=== PATIENT | female | born 1985 | race Caucasian/White ===

== ENCOUNTER 2016-12-17 14:20 | Outpatient (CLI) | payer SELFPAY | END 2016-12-17 14:21 | disposition home or self-care (01) | DX: N92.0 Excessive and frequent menstruation with regular cycle (principal) ==

== ENCOUNTER 2016-12-31 14:03 | Emergency (ER) | payer SELFPAY ==
[2016-12-31 15:12] LABS: BILIRUBIN,URINE NEGATIVE (NEGATIVE)
[2016-12-31 15:20] LABS: HCG UR QUAL NEGATIVE; UA w/ MICROSCOPIC CHARGE YES
[2016-12-31 15:28] LABS: UR CULTURE IF IND NOT INDICATED; WBC,URINE 0-3 /HPF (0-5)
[2016-12-31] MEDS ORDERED: ACETAMINOPHEN 325 MG TABLET PO STA (16:20)
[2016-12-31] MEDS ORDERED: CETIRIZINE 10 MG TABLET PO STA (16:20)
[2016-12-31] MEDS ORDERED: DEXAMETHASONE 10 MG/ML VIAL PO STA (16:20)
--- NOTE | 2016-12-31 16:22 | ED Physician Documentation ---
PD HPI SKIN - Stated complaint Stated Complaint: KIDNEY PAIN,WEEK,ARM PAIN - Chief complaint Chief Complaint: General - History obtained from History obtained from: Patient - History of Present Illness Timing - onset: How many weeks ago (1-2) Timing - duration: Weeks Timing - details: Gradual onset, Intermittant Location: Bodywide (having intermittent swelling face and around eyes, itchy rash, and some congestion. Improved when got transfusion last week, but still happening.) Quality / character: Itchy. No: Painful Associated symptoms: No: Fever, Myalgias Review of Systems Constitutional: denies: Fever, Chills Nose: denies: Rhinorrhea / runny nose, Congestion Throat: denies: Sore throat Cardiac: denies: Chest pain / pressure Respiratory: reports: Cough. 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.) : None HEENT: None Psych: None Musculoskeletal: None Derm: None - Past Surgical History Past Surgical History: Yes /VIDEO CONTROL ENGINEER: Dilation and currettage - Present Medications Home Medications: Ambulatory Orders Medication Instructions Recorded Confirmed Ferrous Sulfate [Iron] 325 mg PO DAILY 12/18/16 12/31/16 Pnv95/Ferrous Fumarate/FA 1 - 3 tab PO DAILY 12/18/16 12/31/16 [ Caplet] Cetirizine [ZyrTEC] 10 mg PO DAILY #20 tablet 12/31/16 Dexamethasone [Decadron] 4 mg PO DAILY #5 tablet 12/31/16 - Allergies Allergies/Adverse Reactions: Allergies Allergy/AdvReac Type Severity Reaction Status Date / Time codeine [Codeine] AdvReac Intermediate itching/abd Verified 10/31/14 15:56 pain - Social History Does the pt smoke?: No Smoking Status: Never smoker Does the pt drink ETOH?: No Does the pt have substance abuse?: No - Immunizations Immunizations are current?: No Immunizations: No immun - POLST Patient has POLST: No PD ED PE NORMAL - Vitals Vital signs reviewed: Yes - General General: Alert and oriented X 3, Well developed/nourished - HEENT HEENT: Atraumatic, Ears normal, Pharynx benign - Neck Neck: Supple, no meningeal sign, No adenopathy - Cardiac Cardiac: RRR, No murmur - Respiratory Respiratory: Clear bilaterally - Derm Derm: Normal color, Warm and dry - Extremities Extremities: Normal ROM s pain, No edema, No calf tenderness / cord - Neuro Neuro: Alert and oriented X 3, No motor deficit, Normal speech Results - Vitals Vitals: Vital Signs - 24 hr 12/31/16 12/31/16 14:08 17:33 Temperature 37.0 C Heart Rate 68 54 L Respiratory 18 16 Rate Blood Pressure 111/61 109/69 O2 Saturation 98 100 Oxygen O2 Source Room air - Labs Labs: Laboratory Tests 12/31/16 12/31/16 12/31/16 14:46 16:30 16:30 WBC 4.6 L RBC 4.42 Hgb 9.4 L Hct 31.2 L MCV 70.6 L MCH 21.1 L MCHC 30.0 L RDW 20.4 H Plt Count 244 MPV 9.4 Neut # 2.4 Lymph # 1.4 L [place] # 0.4 Eos # 0.3 Baso # 0.1 Absolute Nucleated RBC 0.00 Nucleated RBCs 0.0 Manual Slide Review Indicated Platelet Estimate NORMAL (130-450,000) Platelet Morphology RARE GIANT PLATELETS RBC Morph Micro Appear 1+ TEARDROP CELLS Sodium 136 Potassium 4.3 Chloride 107 Carbon Dioxide 23 Anion Gap 6.0 BUN 12 Creatinine 0.6 Estimated GFR (MDRD) 118 Glucose 99 Calcium 8.9 Magnesium 2.3 Total Bilirubin 0.4 AST 17 ALT 16 Alkaline Phosphatase 55 Total Protein 6.8 Albumin 4.1 Globulin 2.7 Albumin/Globulin Ratio 1.5 Lipase 40 Urine Color YELLOW Urine Clarity CLEAR Urine pH 6.0 Ur Specific [place] 1.020 Urine Protein NEGATIVE Urine Glucose (UA) NEGATIVE Urine Ketones NEGATIVE Urine Occult Blood NEGATIVE Urine Nitrite NEGATIVE Urine Bilirubin NEGATIVE Urine Urobilinogen 0.2 (NORMAL) Ur Leukocyte Esterase TRACE H Urine RBC 0-5 Urine WBC 0-3 Ur Squamous Epith Cells MOD Squamous H Urine Bacteria Rare Urine Mucus Few Strands Ur Microscopic Review INDICATED Urine Culture Comments NOT INDICATED Urine HCG, Qual NEGATIVE PD MEDICAL DECISION MAKING - ED course Complexity details: considered differential (intermittent facial swelling and itching, without intraoral/mucosal involvement. Was having this before transfusion last week, so not seems related. ), d/w patient Departure - Departure Disposition: 01 Home, Self Care Clinical Impression: Itching, Cough Allergy Qualifiers: Encounter type: initial encounter Qualified Code(s): T78.40XA - Allergy, unspecified, initial encounter Condition: Stable Record reviewed to determine appropriate education?: Yes Instructions: ED Allergic Reaction General Other Prescriptions: Dexamethasone [Decadron] 4 mg PO DAILY #5 tablet Cetirizine [ZyrTEC] 10 mg PO DAILY #20 tablet Comments: drink lots of fluids. Cetirizine daily for a few weeks. Decadron daily for 5 days. Add Benadryl every 6 hours if needed for itching/swelling. Followup with [facility] the next week. Discharge Date/Time: 12/31/16 18:01
[2016-12-31] MEDS ORDERED: DEXAMETHASONE 10 MG/ML VIAL ONE (16:31)
[2016-12-31] MEDS ORDERED: CETIRIZINE 10 MG TABLET ONE (16:31)
[2016-12-31] MEDS ORDERED: ACETAMINOPHEN 325 MG TABLET PO ONE (16:31)
[2016-12-31] MEDS ORDERED: CHERRY SYRUP 10 ML UDC PO ONE (16:31)
[2016-12-31 16:45] LABS: ALBUMIN/GLOBULIN RATIO 1.5 (1.0-2.2); BILIRUBIN,TOTAL 0.4 mg/dL (0.2-1.0); CALCIUM 8.9 mg/dL (8.5-10.3); CREATININE 0.6 mg/dL (0.4-1.0); MAGNESIUM 2.3 mg/dL (1.7-2.8); POTASSIUM 4.3 mmol/L (3.5-5.0); TOTAL PROTEIN 6.8 g/dL (6.7-8.2)
[2016-12-31 16:51] LABS: BASOPHILS # (AUTO) 0.1 10^3/uL (0.0-0.1); BASOPHILS % (AUTO) 1.4 %; EOSINOPHILS # (AUTO) 0.3 10^3/uL (0.0-0.7); EOSINOPHILS % (AUTO) 7.1 %; HCT - HEMATOCRIT 31.2 % (37.0-47.0); HGB - HEMOGLOBIN 9.4 g/dL (12.0-16.0); LYMPHOCYTES # (AUTO) 1.4 10^3/uL (1.5-3.5); LYMPHOCYTES % (AUTO) 30.1 %; MEAN CORPUSCULAR HEMOGLOBIN 21.1 pg (27.0-31.0); MEAN CORPUSCULAR VOLUME 70.6 fL (81.0-99.0); MEAN PLATELET VOLUME 9.4 fL (7.9-10.8); MONOCYTES # (AUTO) 0.4 10^3/uL (0.0-1.0); MONOCYTES % (AUTO) 8.6 %; NEUTROPHILS # (AUTO) 2.4 10^3/uL (1.5-6.6); NEUTROPHILS % (AUTO) 52.8 %; RED BLOOD COUNT 4.42 10^6/uL (4.20-5.40); RED CELL DISTRIBUTION WIDTH 20.4 % (12.0-15.0); UNCORRECTED WHITE BLOOD COUNT 4.6 x10^3/uL; WHITE BLOOD COUNT 4.6 x10^3/uL (4.8-10.8)
[2016-12-31 17:23] LABS: PLATELET ESTIMATE, MANUAL NORMAL (130-450,000) (NORMAL); PLATELET MORPHOLOGY RARE GIANT PLATELETS (NORMAL)
--- NOTE | 2016-12-31 17:28 | XRAY Preliminary Report ---
Exam: XR Chest 2 View PA/LAT IMPRESSION: No acute pulmonary consolidation. [facility] SITE ID: [id number]
--- NOTE | 2016-12-31 17:30 | XRAY Report ---
EXAM: CHEST RADIOGRAPHY EXAM DATE: 12/31/2016 05:09 PM. CLINICAL HISTORY: Cough and dyspnea. COMPARISON: Chest x-ray 10/31/2014. TECHNIQUE: 2 views. FINDINGS: Lungs/Pleura: No focal opacities evident. No pneumothorax or pleural effusion. Normal volumes. Mediastinum: Heart and mediastinal contours are unremarkable. Other: None. IMPRESSION: No acute pulmonary consolidation. [facility] Referring Provider Line: [phone] SITE ID: [id number]
[2016-12-31 17:34] VITALS: BP 109/69
== END 2016-12-31 18:01 | disposition home or self-care (01) ==
LOC: ED 14:03
DX: L29.9 Pruritus, unspecified (principal); R05 Cough; T78.40XA Allergy, unspecified, initial encounter
CPT/HCPCS: 36415; 71020; 80053; 81001; 81025; 83690; 83735; 85025; 99283; A9270; 81003; 87086

== ENCOUNTER 2017-02-25 08:01 | Outpatient (CLI) | payer SELFPAY | END 2017-02-25 23:59 | DX: C95.01 Acute leukemia of unspecified cell type, in remission (principal) ==

== ENCOUNTER 2017-03-01 08:02 | Outpatient (CLI) | payer SELFPAY | END 2017-03-01 08:03 | DX: Z20.2 Contact with and (suspected) exposure to infections with a predominantly sexual mode of transmission (principal) ==

== ENCOUNTER 2017-03-09 16:21 | Observation (INO) | payer SELFPAY ==
[2017-03-09] MEDS ORDERED: SODIUM CHLORIDE FLUSH 0.9% 10 ML SYRINGE IVP PRN (18:12)
[2017-03-09] MEDS ORDERED: SODIUM CHLORIDE 0.9% 1,000 ML IV ONE (18:27)
[2017-03-09] MEDS ORDERED: POTASSIUM CHLORIDE 20 MEQ TABLET PO SCH (19:28)
[2017-03-09] MEDS ORDERED: diphenhydrAMINE INJ 50 MG/ML VIAL IVP PRN (19:54)
[2017-03-09] MEDS ORDERED: ACETAMINOPHEN/CODEINE 300 MG/30 MG TABLET PO PRN (19:54)
[2017-03-09] MEDS ORDERED: ACETAMINOPHEN 325 MG TABLET PO PRN (20:35)
[2017-03-09] MEDS ORDERED: ACETAMINOPHEN 325 MG TABLET PO SCH (21:00)
[2017-03-09] MEDS ORDERED: SODIUM CHLORIDE FLUSH 0.9% 10 ML SYRINGE IVP SCH (22:00)
[2017-03-10] MEDS ORDERED: POLYETHYLENE GLYCOL 3350 17 GM PACKET PO SCH (09:00)
== END 2017-03-10 04:30 | disposition home or self-care (01) ==
DX: D62 Acute posthemorrhagic anemia (principal); N93.8 Other specified abnormal uterine and vaginal bleeding; E87.6 Hypokalemia; D50.9 Iron deficiency anemia, unspecified; Z79.3 Long term (current) use of hormonal contraceptives; Z79.899 Other long term (current) drug therapy; C95.91 Leukemia, unspecified, in remission
CPT/HCPCS: 36415; 36430; 80053; 81025; 83690; 85014; 85018; 85025; 86850; 86900; 86901; 86920; 93005; 93010; 96374; 99283; 99285; A9270; G0378; P9016

== ENCOUNTER 2017-05-21 16:26 | Emergency (ER) | payer SELFPAY ==
[2017-05-21 16:41] VITALS: BP 129/73
--- NOTE | 2017-05-21 17:02 | ED Physician Documentation ---
PD HPI CHEST PAIN - Stated complaint Stated Complaint: CHEST PX - Chief complaint Chief Complaint: General - History obtained from History obtained from: Patient - History of Present Illness Timing - onset: Yesterday Similar symptoms before: Diagnosis (Past history of anemia, requiring blood transfusion.) - Additional information Additional information: The patient is a 31-year-old female who presents after having 2 episodes of lightheadedness, 1 yesterday and 1 today. Her menstrual period started today, about one hour prior to arrival. 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 In February she was hospitalized for acute on chronic blood loss, with a hemoglobin of 7.2, for which she underwent transfusion of 2 units packed red blood cells. She presents now concerned that she may need another blood transfusion. She reports a brief episode of mild chest discomfort at 4 AM today, with associated shortness of breath. She denies abdominal pain, vomiting, or diarrhea. Review of Systems Constitutional: denies: Fever Ears: denies: Tinnitus/ringing Nose: denies: Congestion Throat: denies: Sore throat Cardiac: reports: Chest pain / pressure (Mild chest discomfort at 4 AM today. Not currently.) Respiratory: denies: Cough GI: denies: Abdominal Pain, Nausea, Vomiting : reports: LMP (Started one hour ago.), Vaginal bleeding. 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.) : None HEENT: None Psych: None Musculoskeletal: None Derm: None - Past Surgical History Past Surgical History: Yes /CREW BOAT OPERATOR: Dilation and currettage - Present Medications Home Medications: Ambulatory Orders Medication Instructions Recorded Confirmed Ferrous Sulfate [Iron] 325 mg PO DAILY 12/18/16 05/21/17 Pnv95/Iron Fum/Folic Acid 1 - 3 tab PO DAILY 12/18/16 05/21/17 [ Caplet] - Allergies Allergies/Adverse Reactions: Allergies Allergy/AdvReac Type Severity Reaction Status Date / Time codeine [Codeine] AdvReac Intermediate itching/abd Verified 10/31/14 15:56 pain - Social History Does the pt smoke?: No Smoking Status: Never smoker Does the pt drink ETOH?: No Does the pt have substance abuse?: No - Immunizations Immunizations are current?: No Immunizations: No immun - POLST Patient has POLST: No PD ED PE NORMAL - Vitals Vital signs reviewed: Yes (normal) - General General: Alert and oriented X 3, Well developed/nourished - HEENT HEENT: Atraumatic, Pharynx benign - Neck Neck: No adenopathy, No JVD - Cardiac Cardiac: RRR, No murmur - Respiratory Respiratory: No respiratory distress, Clear bilaterally - Abdomen Abdomen: Soft, Non tender - Back Back: No CVA TTP - Derm Derm: Normal color, No rash - Extremities Extremities: No edema, No calf tenderness / cord - Neuro Neuro: Alert and oriented X 3, No motor deficit, Normal speech Results - Vitals Vitals: Oxygen O2 Source Room air - EKG (time done) 16:55 Rate: Rate (enter#) (55) Rhythm: NSR [place]: Normal Intervals: Normal [place] QRS: Normal Ischemia: Normal ST segments Computer interpretation: Agree with computer - Labs Labs: Microbiology 05/21/17 17:30 Urine Culture - Preliminary Urine,Clean Catch Laboratory Tests 05/21/17 05/21/17 05/21/17 17:10 17:10 17:10 WBC 4.2 L RBC 4.07 L Hgb 9.5 L Hct 30.9 L MCV 76.0 L MCH 23.3 L MCHC 30.7 L RDW 18.8 H Plt Count 216 MPV 7.7 L Neut # 2.6 Lymph # 1.2 L [place] # 0.3 Eos # 0.1 Baso # 0.0 Absolute Nucleated RBC 0.00 Nucleated RBCs 0.0 Sodium 139 Potassium 3.4 L Chloride 109 Carbon Dioxide 23 Anion Gap 7.0 BUN 14 Creatinine 0.7 Estimated GFR (MDRD) 99 Glucose 117 H Calcium 9.2 Total Bilirubin 0.6 AST 16 ALT 14 Alkaline Phosphatase 50 Troponin I < 0.04 Total Protein 6.9 Albumin 4.1 Globulin 2.8 Albumin/Globulin Ratio 1.5 Lipase 38 Urine Color Urine Clarity Urine pH Ur Specific [place] Urine Protein Urine Glucose (UA) Urine Ketones Urine Occult Blood Urine Nitrite Urine Bilirubin Urine Urobilinogen Ur Leukocyte Esterase Urine RBC Urine WBC Ur Squamous Epith Cells Urine Bacteria Ur Microscopic Review Urine Culture Comments Urine HCG, Qual Blood Type Antibody Screen 05/21/17 05/21/17 17:10 17:30 WBC RBC Hgb Hct MCV MCH MCHC RDW Plt Count MPV Neut # Lymph # [place] # Eos # Baso # Absolute Nucleated RBC Nucleated RBCs Sodium Potassium Chloride Carbon Dioxide Anion Gap BUN Creatinine Estimated GFR (MDRD) Glucose Calcium Total Bilirubin AST ALT Alkaline Phosphatase Troponin I Total Protein Albumin Globulin Albumin/Globulin Ratio Lipase Urine Color RED/BLOODY Urine Clarity CLEAR Urine pH 5.5 Ur Specific [place] <=1.005 Urine Protein 30 H Urine Glucose (UA) NEGATIVE Urine Ketones NEGATIVE Urine Occult Blood LARGE H Urine Nitrite NEGATIVE Urine Bilirubin NEGATIVE Urine Urobilinogen 0.2 (NORMAL) Ur Leukocyte Esterase TRACE H Urine RBC 11-25 H Urine WBC 4-5 Ur Squamous Epith Cells FEW Squamous Urine Bacteria Few Ur Microscopic Review INDICATED Urine Culture Comments INDICATED Urine HCG, Qual NEGATIVE Blood Type O POSITIVE Antibody Screen NEGATIVE - Rads (name of study) Chest 1-view Radiology: Prelim report reviewed, EMP read contemporaneously, See rad report ( Normal single view chest.) PD MEDICAL DECISION MAKING - ED course Complexity details: reviewed old records, reviewed results, re-evaluated patient , considered differential, d/w patient, d/w family ED course: The patient's presentation is consistent with chronic anemia with a current hemoglobin of 9.5. She does not present with critical anemia that would warrant blood transfusion. Her brief episode of mild chest discomfort is not likely cardiac in etiology. Her electrocardiogram and troponin level are both normal. I discussed with her the results of her workup, and she expresses relief, and plans to continue her current vitamin therapy. I discussed with her and her potentially worrisome signs or symptoms that should prompt reevaluation in the emergency department. Departure - Departure Disposition: 01 Home, Self Care Clinical Impression: Anemia Qualifiers: Anemia type: unspecified type Qualified Code(s): D64.9 - Anemia, unspecified Chest pain Qualifiers: Chest pain type: unspecified Qualified Code(s): R07.9 - Chest pain, unspecified Heavy menstrual bleeding Qualifiers: Menorrahagia type: with regular cycle Qualified Code(s): N92.0 - Excessive and frequent menstruation with regular cycle Condition: Stable Instructions: ED Chest Pain NonCardiac Follow-Up: Osvaldo Teague MD [Provider Admit Priv/Credential] - Corie Kurtz FNP [Primary Care Provider] - Comments: 1. Drink plenty of fluids. 2. Continue taking her vitamins. 3. Follow-up with your primary physician or with your pier master within 1 week. Call to schedule appointment. 4. Return to the emergency department if you develop recurrent or increasing chest pain, shortness of breath, or otherwise worsening symptoms. Discharge Date/Time: 05/21/17 18:42
[2017-05-21 17:19] LABS: EOSINOPHILS # (AUTO) 0.1 10^3/uL (0.0-0.7); EOSINOPHILS % (AUTO) 1.7 %; HCT - HEMATOCRIT 30.9 % (37.0-47.0); HGB - HEMOGLOBIN 9.5 g/dL (12.0-16.0); LYMPHOCYTES # (AUTO) 1.2 10^3/uL (1.5-3.5); MEAN CORPUSCULAR HEMOGLOBIN 23.3 pg (27.0-31.0); MEAN CORPUSCULAR HGB CONC 30.7 g/dL (32.0-36.0); MEAN PLATELET VOLUME 7.7 fL (7.9-10.8); MONOCYTES # (AUTO) 0.3 10^3/uL (0.0-1.0); MONOCYTES % (AUTO) 6.6 %; NEUTROPHILS # (AUTO) 2.6 10^3/uL (1.5-6.6); NEUTROPHILS % (AUTO) 61.7 %; RED BLOOD COUNT 4.07 10^6/uL (4.20-5.40); RED CELL DISTRIBUTION WIDTH 18.8 % (12.0-15.0); UNCORRECTED WHITE BLOOD COUNT 4.2 x10^3/uL; WHITE BLOOD COUNT 4.2 x10^3/uL (4.8-10.8)
--- NOTE | 2017-05-21 17:23 | XRAY Preliminary Report ---
Exam: XR Chest 1 View IMPRESSION: Normal single view chest. [facility] SITE ID: [id number]
--- NOTE | 2017-05-21 17:25 | XRAY Report ---
EXAM: CHEST RADIOGRAPHY EXAM DATE: 05/21/2017 05:09 PM. CLINICAL HISTORY: Chest pain. COMPARISON: 12/31/2016. TECHNIQUE: 1 view. FINDINGS: Lungs/Pleura: No focal opacities evident. No pleural effusion. No pneumothorax. Mediastinum: Within exam limitations, cardiomediastinal contour is normal. Other: None. IMPRESSION: Normal single view chest. [facility] Referring Provider Line: [phone] SITE ID: [id number]
[2017-05-21 17:35] LABS: ALBUMIN/GLOBULIN RATIO 1.5 (1.0-2.2); BILIRUBIN,TOTAL 0.6 mg/dL (0.2-1.0); CALCIUM 9.2 mg/dL (8.5-10.3); CREATININE 0.7 mg/dL (0.4-1.0); POTASSIUM 3.4 mmol/L (3.5-5.0); TOTAL PROTEIN 6.9 g/dL (6.7-8.2)
[2017-05-21 17:52] LABS: BILIRUBIN,URINE NEGATIVE (NEGATIVE); PH,URINE 5.5 PH (5.0-7.5)
[2017-05-21 17:56] LABS: HCG UR QUAL NEGATIVE; UA w/ MICROSCOPIC CHARGE YES
[2017-05-21 18:37] LABS: UR CULTURE IF IND INDICATED
== END 2017-05-21 18:42 | disposition home or self-care (01) ==
LOC: ED 16:26
DX: D64.9 Anemia, unspecified (principal); R07.9 Chest pain, unspecified; N92.0 Excessive and frequent menstruation with regular cycle
CPT/HCPCS: 36415; 71010; 80053; 81001; 81003; 81025; 83690; 84484; 85025; 86850; 86900; 86901; 87086; 93005; 99283; 99284

== ENCOUNTER 2017-06-28 08:00 | Outpatient (CLI) | payer SELFPAY ==
[2017-06-28 19:27] LABS: BASOPHILS # (AUTO) 0.1 10^3/uL (0.0-0.1); BASOPHILS % (AUTO) 1.6 %; EOSINOPHILS % (AUTO) 0.4 %; HCT - HEMATOCRIT 28.5 % (37.0-47.0); HGB - HEMOGLOBIN 8.5 g/dL (12.0-16.0); LYMPHOCYTES # (AUTO) 1.1 10^3/uL (1.5-3.5); LYMPHOCYTES % (AUTO) 34.9 %; MEAN CORPUSCULAR HEMOGLOBIN 22.2 pg (27.0-31.0); MEAN CORPUSCULAR HGB CONC 29.7 g/dL (32.0-36.0); MEAN CORPUSCULAR VOLUME 74.7 fL (81.0-99.0); MONOCYTES # (AUTO) 0.3 10^3/uL (0.0-1.0); MONOCYTES % (AUTO) 8.4 %; NEUTROPHILS # (AUTO) 1.7 10^3/uL (1.5-6.6); NEUTROPHILS % (AUTO) 54.7 %; NUCLEATED RED BLOOD CELLS AUTO 0.8 /100WBC; RED BLOOD COUNT 3.82 10^6/uL (4.20-5.40); RED CELL DISTRIBUTION WIDTH 18.6 % (12.0-15.0); UNCORRECTED WHITE BLOOD COUNT 3.1 x10^3/uL; WHITE BLOOD COUNT 3.1 x10^3/uL (4.8-10.8)
== END 2017-06-28 08:01 | disposition home or self-care (01) ==
LOC: LAB.N 08:00
PROVIDERS: ATTEND Nurse Practitioner Gerontology
DX: D50.0 Iron deficiency anemia secondary to blood loss (chronic) (principal)
CPT/HCPCS: 36415; 85025

== ENCOUNTER → 2017-07-27 | Outpatient (CLI) | payer SELFPAY ==
[2017-07-27 21:16] LABS: ALBUMIN/GLOBULIN RATIO 1.3 (1.0-2.2); BILIRUBIN,TOTAL 0.4 mg/dL (0.2-1.0); CALCIUM 9.4 mg/dL (8.5-10.3); CREATININE 0.5 mg/dL (0.4-1.0); POTASSIUM 3.5 mmol/L (3.5-5.0)
[2017-07-27 21:24] LABS: EOSINOPHILS % (AUTO) 0.6 %; HCT - HEMATOCRIT 27.7 % (37.0-47.0); HGB - HEMOGLOBIN 8.1 g/dL (12.0-16.0); LYMPHOCYTES # (AUTO) 1.2 10^3/uL (1.5-3.5); LYMPHOCYTES % (AUTO) 28.9 %; MEAN CORPUSCULAR HEMOGLOBIN 20.4 pg (27.0-31.0); MEAN CORPUSCULAR HGB CONC 29.1 g/dL (32.0-36.0); MEAN PLATELET VOLUME 8.8 fL (7.9-10.8); MONOCYTES # (AUTO) 0.3 10^3/uL (0.0-1.0); MONOCYTES % (AUTO) 7.6 %; NEUTROPHILS # (AUTO) 2.6 10^3/uL (1.5-6.6); NEUTROPHILS % (AUTO) 61.9 %; NUCLEATED RED BLOOD CELLS AUTO 0.2 /100WBC; RED BLOOD COUNT 3.96 10^6/uL (4.20-5.40); RED CELL DISTRIBUTION WIDTH 19.2 % (12.0-15.0); UNCORRECTED WHITE BLOOD COUNT 4.1 x10^3/uL; WHITE BLOOD COUNT 4.1 x10^3/uL (4.8-10.8)
== END ==
LOC: LAB.N 08:46
PROVIDERS: ATTEND Physician Assistant
DX: C95.91 Leukemia, unspecified, in remission (principal)
CPT/HCPCS: 36415; 80053; 85025

== ENCOUNTER 2017-07-30 13:27 | Emergency (ER) | payer SELFPAY ==
[2017-07-30 13:37] VITALS: BP 108/74
--- NOTE | 2017-07-30 14:21 | ED Physician Documentation ---
History of Present Illness - Stated complaint Stated Complaint: DIZZY - Chief complaint Chief Complaint: General - History obtained from History obtained from: Patient - History of Present Illness Timing: Other (She has chronic symptomatic anemia because of dysfunctional uterine bleeding and a remote history of leukemia. She gets usually about monthly labs and she had her routine blood draw 3 days ago. There was some confusion, she was told that her level was 4.1 and she got very concerned and came here, however that was her white blood cell count, not her hemoglobin. 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: Dilation and currettage - Present Medications Home Medications: Ambulatory Orders Medication Instructions Recorded Confirmed Ferrous Sulfate [Iron] 325 mg PO DAILY 12/18/16 05/21/17 Pnv95/Iron Fum/Folic Acid 1 - 3 tab PO DAILY 12/18/16 05/21/17 [ Caplet] - Allergies Allergies/Adverse Reactions: Allergies Allergy/AdvReac Type Severity Reaction Status Date / Time codeine [Codeine] AdvReac Intermediate itching/abd Verified 10/31/14 15:56 pain - Social History Does the pt smoke?: No Smoking Status: Never smoker Does the pt drink ETOH?: No Does the pt have substance abuse?: No - Immunizations Immunizations are current?: No Immunizations: No immun - POLST Patient has POLST: No PD ED PE NORMAL - Vitals Vital signs reviewed: Yes - General General: Alert and oriented X 3, No acute distress - HEENT HEENT: PERRL (Pale sclera) - Neuro Neuro: Alert and oriented X 3, Normal speech - Psych Psych: Normal mood, Normal affect Results - Vitals Vitals: Vital Signs - 24 hr 07/30/17 13:31 Temperature 36.9 C Heart Rate 63 Respiratory 16 Rate Blood Pressure 108/74 O2 Saturation 100 Oxygen O2 Source Room air PD MEDICAL DECISION MAKING - ED course ED course: Her hemoglobin is at her baseline, and she does not require transfusion at this juncture. Departure - Departure Disposition: Home, Self Care Clinical Impression: Symptomatic anemia Condition: Good Record reviewed to determine appropriate education?: Yes Comments: Continue your iron supplementation, in the future when you decide you no longer desire to have more children, discuss her case with the edge cutting machine operator, there are options to prevent further anemia.
== END 2017-07-30 14:25 | disposition home or self-care (01) ==
LOC: ED 13:27
DX: D64.9 Anemia, unspecified (principal)
CPT/HCPCS: 99283

== ENCOUNTER 2017-10-19 15:03 | Emergency (ER) | payer SELFPAY ==
--- NOTE | 2017-10-19 15:27 | ED Physician Documentation ---
History of Present Illness - Stated complaint Stated Complaint: DIZZINESS,WEAKNESS,CHEST PX - Chief complaint Chief Complaint: General - History obtained from History obtained from: Patient - History of Present Illness Timing: How many days ago (4) - Additonal information Additional information: 32-year-old female with a history of heavy vaginal bleeding since the miscarriage has had anemia significant enough to require transfusion last 4-5 months ago. She is now feeling symptomatic with exertional dyspnea and chest pressure. She is more pale than normal and has lost energy. Review of Systems Constitutional: reports: Myalgias, Fatigue, Sweats. denies: Fever Eyes: denies: Decreased vision Ears: denies: Ear pain Nose: denies: Rhinorrhea / runny nose, Congestion Throat: denies: Sore throat Cardiac: reports: Chest pain / pressure. denies: Palpitations Respiratory: reports: Dyspnea. 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 : None HEENT: None Psych: None Musculoskeletal: None Derm: None - Past Surgical History Past Surgical History: Yes /MOLD TECHNICIAN: Dilation and currettage - Present Medications Home Medications: Ambulatory Orders Medication Instructions Recorded Confirmed Ferrous Sulfate [Iron] 325 mg PO DAILY 12/18/16 10/19/17 Pnv95/Iron Fum/Folic Acid 1 - 3 tab PO DAILY 12/18/16 10/19/17 [ Caplet] - Allergies Allergies/Adverse Reactions: Allergies Allergy/AdvReac Type Severity Reaction Status Date / Time codeine [Codeine] AdvReac Intermediate itching/abd Verified 10/31/14 15:56 pain - Social History Does the pt smoke?: No Smoking Status: Never smoker Does the pt drink ETOH?: No Does the pt have substance abuse?: No - Immunizations Immunizations are current?: No Immunizations: No immun - POLST Patient has POLST: No PD ED PE NORMAL - Vitals Vital signs reviewed: Yes (normal ) - General General: Alert and oriented X 3, No acute distress, Well developed/nourished, Other (pale appearing female in no distress) - HEENT HEENT: Atraumatic, PERRL, EOMI - Neck Neck: Supple, no meningeal sign, No bony TTP - Cardiac Cardiac: RRR, No murmur - Respiratory Respiratory: No respiratory distress, Clear bilaterally - Abdomen Abdomen: Soft, Non tender - Back Back: No CVA TTP, No spinal TTP - Derm Derm: Normal color, Warm and dry, No rash - Extremities Extremities: No deformity, No edema - Neuro Neuro: No motor deficit, No sensory deficit Eye Opening: Spontaneous Motor: Obeys Commands Verbal: Oriented GCS Score: 15 - Psych Psych: Normal mood, Normal affect Results - Vitals Vitals: Vital Signs - 24 hr 10/19/17 10/19/17 10/19/17 15:06 15:45 16:48 Temperature 36.1 C L 36.9 C Heart Rate 84 70 69 Respiratory 17 16 18 Rate Blood Pressure 124/76 98/58 L 108/74 O2 Saturation 100 100 99 10/19/17 10/19/17 10/19/17 17:22 17:25 18:08 Temperature 37 C Heart Rate 66 67 Respiratory 20 16 Rate Blood Pressure 95/82 H 102/59 L O2 Saturation 10/19/17 10/19/17 18:15 18:30 Temperature 36.8 C 36.7 C Heart Rate 68 62 Respiratory 16 16 Rate Blood Pressure 104/60 101/67 O2 Saturation 100 Oxygen O2 Source Room air - Labs Labs: Laboratory Tests 10/19/17 10/19/17 10/19/17 15:38 15:38 16:05 WBC 2.8 L RBC 3.37 L Hgb 6.4 L* Hct 21.8 L MCV 64.7 L MCH 18.9 L MCHC 29.3 L RDW 22.0 H Plt Count 334 MPV 8.5 Neut # PHARMACY TECHNICIAN Lymph # PHARMACY TECHNICIAN [place] # PHARMACY TECHNICIAN Eos # PHARMACY TECHNICIAN Baso # PHARMACY TECHNICIAN Absolute Nucleated RBC PHARMACY TECHNICIAN Total Counted 100 Band Neuts % (Manual) 0 Nucleated RBC % PHARMACY TECHNICIAN Neutrophils # (Manual) 1.7 Lymphocytes # (Manual) 0.8 L Monocytes # (Manual) 0.3 Eosinophils # (Manual) 0.0 WBC Morphology NORMAL APPEARANCE Platelet Estimate NORMAL (130-450,000) Platelet Morphology RARE GIANT PLATELETS RBC Morph Micro Appear 1+ OVALOCYTES Sodium 137 Potassium 3.3 L Chloride 107 Carbon Dioxide 24 Anion Gap 6.0 BUN 8 Creatinine 0.5 Estimated GFR (MDRD) 145 Glucose 103 H Calcium 8.7 Total Bilirubin 0.4 AST 30 ALT 38 Alkaline Phosphatase 51 Total Protein 6.5 L Albumin 3.8 Globulin 2.7 Albumin/Globulin Ratio 1.4 Lipase 21 L Urine Color Urine Clarity Urine pH Ur Specific [place] Urine Protein Urine Glucose (UA) Urine Ketones Urine Occult Blood Urine Nitrite Urine Bilirubin Urine Urobilinogen Ur Leukocyte Esterase Ur Microscopic Review Urine Culture Comments Urine HCG, Qual Blood Type O POSITIVE Antibody Screen NEGATIVE Crossmatch IS Only See Detail 10/19/17 16:57 WBC RBC Hgb Hct MCV MCH MCHC RDW Plt Count MPV Neut # Lymph # [place] # Eos # Baso # Absolute Nucleated RBC Total Counted Band Neuts % (Manual) Nucleated RBC % Neutrophils # (Manual) Lymphocytes # (Manual) Monocytes # (Manual) Eosinophils # (Manual) WBC Morphology Platelet Estimate Platelet Morphology RBC Morph Micro Appear Sodium Potassium Chloride Carbon Dioxide Anion Gap BUN Creatinine Estimated GFR (MDRD) Glucose Calcium Total Bilirubin AST ALT Alkaline Phosphatase Total Protein Albumin Globulin Albumin/Globulin Ratio Lipase Urine Color YELLOW Urine Clarity CLEAR Urine pH 7.0 Ur Specific [place] 1.010 Urine Protein NEGATIVE Urine Glucose (UA) NEGATIVE Urine Ketones NEGATIVE Urine Occult Blood NEGATIVE Urine Nitrite NEGATIVE Urine Bilirubin NEGATIVE Urine Urobilinogen 0.2 (NORMAL) Ur Leukocyte Esterase NEGATIVE Ur Microscopic Review NOT INDICATED Urine Culture Comments NOT INDICATED Urine HCG, Qual NEGATIVE Blood Type Antibody Screen Crossmatch IS Only Procedures - IVC sono (time) 1600 Bedside IVC sono: IVC measures (cm) (1.47), [place] PD MEDICAL DECISION MAKING - ED course Complexity details: reviewed old records, reviewed results, re-evaluated patient , considered differential, d/w patient, d/w family ED course: 32 y/o female with a history of chronic vaginal bleeding and anemia has reached transfusion threshold and is symptomatic. She is not bleeding now and we will transfuse in the ED. Departure - Departure Clinical Impression: Symptomatic anemia, Dysfunctional uterine bleeding Condition: Stable Instructions: ED Anemia Iron Deficiency, ED Bleed Irregular Vaginal Follow-Up: Marce Molina ARNP [Primary Care Provider] - Osvaldo Teague MD [Provider Admit Priv/Credential] -
[2017-10-19 16:00] LABS: BASOPHILS % (AUTO) 1.5 %; EOSINOPHILS % (AUTO) 0.9 %; HCT - HEMATOCRIT 21.8 % (37.0-47.0); LYMPHOCYTES % (AUTO) 28.4 %; MEAN CORPUSCULAR HEMOGLOBIN 18.9 pg (27.0-31.0); MEAN CORPUSCULAR HGB CONC 29.3 g/dL (32.0-36.0); MEAN CORPUSCULAR VOLUME 64.7 fL (81.0-99.0); MEAN PLATELET VOLUME 8.5 fL (7.9-10.8); NEUTROPHILS % (AUTO) 63.2 %; RED BLOOD COUNT 3.37 10^6/uL (4.20-5.40); UNCORRECTED WHITE BLOOD COUNT 2.8 x10^3/uL; WHITE BLOOD COUNT 2.8 x10^3/uL (4.8-10.8)
[2017-10-19 16:02] LABS: HGB - HEMOGLOBIN 6.4 g/dL (12.0-16.0)
[2017-10-19 16:04] LABS: ALBUMIN/GLOBULIN RATIO 1.4 (1.0-2.2); BAND NEUTROPHILS % (MANUAL) 0 %; BILIRUBIN,TOTAL 0.4 mg/dL (0.2-1.0); CALCIUM 8.7 mg/dL (8.5-10.3); CREATININE 0.5 mg/dL (0.4-1.0); POTASSIUM 3.3 mmol/L (3.5-5.0); TOTAL PROTEIN 6.5 g/dL (6.7-8.2)
[2017-10-19 16:26] LABS: EOSINOPHILS % (MANUAL) 1 %; LYMPHOCYTES % (MANUAL) 30 %; NEUTROPHILS % (MANUAL) 60 %; TOTAL CELLS COUNTED 100
[2017-10-19 16:32] LABS: PLATELET MORPHOLOGY RARE GIANT PLATELETS (NORMAL)
[2017-10-19 16:33] LABS: PLATELET ESTIMATE, MANUAL NORMAL (130-450,000) (NORMAL); WBC MORPHOLOGY (MULTIPLE) NORMAL APPEARANCE (NORMAL)
[2017-10-19 16:34] LABS: NP AUTO DIFFERENTIAL? YES
[2017-10-19 16:35] LABS: NP MAN DIFFERENTIAL? NO
[2017-10-19] MEDS ORDERED: POTASSIUM BICARB 25 MEQ TABLET PO STA (16:35)
[2017-10-19 17:00] LABS: BILIRUBIN,URINE NEGATIVE (NEGATIVE)
[2017-10-19 17:04] LABS: HCG UR QUAL NEGATIVE; UA CHARGE (STRIP ONLY) YES; UR CULTURE IF IND NOT INDICATED
[2017-10-19] MEDS ORDERED: diphenhydrAMINE INJ 50 MG/ML VIAL IVP STA (17:29)
[2017-10-19] MEDS ORDERED: diphenhydrAMINE INJ 50 MG/ML VIAL ONE (17:36)
[2017-10-19] MEDS ORDERED: ACETAMINOPHEN 500 MG TABLET PO STA (17:37)
[2017-10-19] MEDS ORDERED: ACETAMINOPHEN 325 MG TABLET PO STA (17:38)
[2017-10-19] MEDS ORDERED: ACETAMINOPHEN 325 MG TABLET PO ONE (17:38)
[2017-10-19] MEDS ORDERED: POTASSIUM BICARB 25 MEQ TABLET PO ONE (17:47)
[2017-10-19] MEDS ORDERED: diphenhydrAMINE 25 MG CAPSULE PO STA (21:25)
[2017-10-19] MEDS ORDERED: diphenhydrAMINE 25 MG CAPSULE PO ONE (21:33)
[2017-10-19 21:51] VITALS: BP 106/83
== END 2017-10-19 22:00 | disposition home or self-care (01) ==
LOC: ED 15:03
DX: D64.9 Anemia, unspecified (principal); N93.8 Other specified abnormal uterine and vaginal bleeding
CPT/HCPCS: 36415; 36430; 80053; 81003; 81025; 83690; 85025; 86850; 86900; 86901; 86920; 93005; 96374; 99284; A9270; P9016; 81001; 87086

== ENCOUNTER 2017-12-04 19:00 | Emergency (ER) | payer SELFPAY ==
--- NOTE | 2017-12-04 19:17 | ED Physician Documentation ---
History of Present Illness - Stated complaint Stated Complaint: CHEST PX/PRESTON - Chief complaint Chief Complaint: Resp - History obtained from History obtained from: Patient, Family - History of Present Illness Timing: Other (She has chronic symptomatic anemia from fibroids and desires future . She is on her menses which is quite heavy and she feels her usual symptoms of needing transfusion including headache, muscle stiffness and diffuse body pain as well as fatigue and dizziness. There is no associated fever or shortness of breath. There is some chest pain as well but she has had that with prior episodes of anemia as well.) Review of Systems Ten Systems: 10 systems reviewed and negative Constitutional: reports: Fatigue. 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 HEENT: None Psych: None Musculoskeletal: None Derm: None - Past Surgical History Past Surgical History: Yes /PSYCHIATRIC TECHNICIAN: Dilation and currettage - Present Medications Home Medications: Ambulatory Orders Medication Instructions Recorded Confirmed Ferrous Sulfate [Iron] 325 mg PO DAILY 12/18/16 12/04/17 Pnv95/Iron Fum/Folic Acid 1 - 3 tab PO DAILY 12/18/16 12/04/17 [ Caplet] Cyanocobalamin (Vitamin B-12) 1,000 mcg PO DAILY 12/04/17 12/04/17 [Vitamin B-12] - Allergies Allergies/Adverse Reactions: Allergies Allergy/AdvReac Type Severity Reaction Status Date / Time codeine [Codeine] AdvReac Intermediate itching/abd Verified 12/04/17 19:10 pain - Social History Does the pt smoke?: No Smoking Status: Never smoker Does the pt drink ETOH?: No Does the pt have substance abuse?: No - Family History Family history: reports: Non contributory - Immunizations Immunizations are current?: No Immunizations: No immun - POLST Patient has POLST: No PD ED PE NORMAL - Vitals Vital signs reviewed: Yes - General General: Alert and oriented X 3, No acute distress, Other (She is very pale) - HEENT HEENT: PERRL, EOMI - Neck Neck: Supple, no meningeal sign, No bony TTP - Cardiac Cardiac: RRR, No murmur - Respiratory Respiratory: No respiratory distress, Clear bilaterally - Abdomen Abdomen: Soft, Non tender - Derm Derm: Normal color, Warm and dry - Neuro Neuro: Alert and oriented X 3, Normal speech - Psych Psych: Normal mood, Normal affect Results - Vitals Vitals: Vital Signs - 24 hr 12/04/17 19:06 Temperature 37.0 C Heart Rate 72 Respiratory 20 Rate Blood Pressure 124/69 O2 Saturation 100 Oxygen O2 Source Room air - EKG (time done) 1909 Rate: Rate (enter#) (73) Rhythm: NSR [place]: Normal Intervals: Normal OR QRS: Normal Ischemia: Normal ST segments Computer interpretation: Agree with computer - Labs Labs: Laboratory Tests 12/04/17 12/04/17 19:16 19:16 WBC 3.2 L RBC 3.55 L Hgb 7.2 L Hct 24.6 L MCV 69.2 L MCH 20.3 L MCHC 29.3 L RDW 19.7 H Plt Count 259 MPV 8.2 Manual Slide Review Indicated Sodium 139 Potassium 3.7 Chloride 107 Carbon Dioxide 24 Anion Gap 8.0 BUN 10 Creatinine 0.5 Estimated GFR (MDRD) 145 Glucose 87 Calcium 9.1 Total Bilirubin 0.3 AST 20 ALT 17 Alkaline Phosphatase 48 Total Protein 6.7 Albumin 3.9 Globulin 2.8 Albumin/Globulin Ratio 1.4 Lipase 23 PD MEDICAL DECISION MAKING - ED course ED course: 32-year-old with chronic recurrent symptomatic anemia due to menorrhagia presents with her usual symptoms of same. Her hemoglobin today is 7.2 which is not too bad for her and does not quite pass the threshold for transfusion. She was given IV ferric gluconate here and close follow-up was advised. Departure - Departure Disposition: 01 Home, Self Care Clinical Impression: Symptomatic anemia Heavy menstrual bleeding Qualifiers: Menorrahagia type: with regular cycle Qualified Code(s): N92.0 - Excessive and frequent menstruation with regular cycle Condition: Good Record reviewed to determine appropriate education?: Yes Follow-Up: [facility] [Provider Group] Comments: Return anytime if worse, try to get into the adolescent medicine specialist's office on Wednesday or Wednesday for recheck and return if unable.
[2017-12-04 19:34] LABS: BASOPHILS % (AUTO) 1.1 %; EOSINOPHILS % (AUTO) 0.5 %; HGB - HEMOGLOBIN 7.2 g/dL (12.0-16.0); LYMPHOCYTES # (AUTO) 0.9 10^3/uL (1.5-3.5); LYMPHOCYTES % (AUTO) 27.2 %; MEAN CORPUSCULAR HEMOGLOBIN 20.3 pg (27.0-31.0); MEAN CORPUSCULAR HGB CONC 29.3 g/dL (32.0-36.0); MEAN CORPUSCULAR VOLUME 69.2 fL (81.0-99.0); MEAN PLATELET VOLUME 8.2 fL (7.9-10.8); MONOCYTES # (AUTO) 0.3 10^3/uL (0.0-1.0); MONOCYTES % (AUTO) 8.7 %; NEUTROPHILS % (AUTO) 62.5 %; PLT - PLATELET COUNT 259 10^3/uL (130-450); RED BLOOD COUNT 3.55 10^6/uL (4.20-5.40); RED CELL DISTRIBUTION WIDTH 19.7 % (12.0-15.0); WHITE BLOOD COUNT 3.2 x10^3/uL (4.8-10.8)
[2017-12-04 19:38] LABS: ALBUMIN 3.9 g/dL (3.2-5.5); ALBUMIN/GLOBULIN RATIO 1.4 (1.0-2.2); BILIRUBIN,TOTAL 0.3 mg/dL (0.2-1.0); CALCIUM 9.1 mg/dL (8.5-10.3); CREATININE 0.5 mg/dL (0.4-1.0); TOTAL PROTEIN 6.7 g/dL (6.7-8.2)
[2017-12-04] MEDS ORDERED: FERRIC GLUCONATE 62.5 MG/5 ML VIAL IVP ONE (19:42)
[2017-12-04 19:48] LABS: HCG,QUALITATIVE BLOOD NEGATIVE
[2017-12-04 20:21] LABS: PLATELET ESTIMATE, MANUAL NORMAL (130-450,000) (NORMAL); PLATELET MORPHOLOGY RARE GIANT PLATELETS (NORMAL)
[2017-12-04] MEDS ORDERED: FERRIC GLUCONATE 125 MG in SODIUM CHLORIDE 0.9% 100ML 100 ML IV ONE ×2 (21:00→21:07)
[2017-12-04] MEDS ORDERED: HYDROcod/ACETAM 5/325 MG TABLET PO STA (21:31)
[2017-12-04 22:24] VITALS: BP 111/69
== END 2017-12-04 22:25 | disposition home or self-care (01) ==
LOC: ED 19:00
DX: D64.89 Other specified anemias (principal); N92.0 Excessive and frequent menstruation with regular cycle; J45.909 Unspecified asthma, uncomplicated
CPT/HCPCS: 36415; 80053; 83690; 84703; 85025; 86850; 86900; 86901; 93005; 96365; 99283; 99284; A9270; J2916

== ENCOUNTER 2018-01-03 13:51 | Emergency (ER) | payer SELFPAY ==
[2018-01-03 15:38] LABS: BILIRUBIN,URINE NEGATIVE (NEGATIVE); GLUCOSE, URINE (UA) NEGATIVE (NEGATIVE); KETONES,URINE (UA) NEGATIVE (NEGATIVE); LEUKOCYTE ESTERASE, URINE NEGATIVE (NEGATIVE); NITRITE,URINE NEGATIVE (NEGATIVE); OCCULT BLOOD,URINE NEGATIVE (NEGATIVE); PROTEIN,URINE NEGATIVE (NEGATIVE); UROBILINOGEN,URINE 0.2 (NORMAL) E.U./dL (NORMAL)
[2018-01-03 15:45] LABS: CLARITY,URINE CLEAR (CLEAR); HCG UR QUAL NEGATIVE
--- NOTE | 2018-01-03 16:13 | ED Physician Documentation ---
History of Present Illness - Stated complaint Stated Complaint: FEVER,DIZZY,DROWSY,BLURRY VISION,SORE THROAT - Chief complaint Chief Complaint: General - History obtained from History obtained from: Patient, Family - History of Present Illness Timing: How many weeks ago (2) - Additonal information Additional information: 32-year-old female with a history of leukemia and prior history of excessive vaginal bleeding requiring transfusion has developed a headache about 2 weeks ago. She has gone into see her dentist thinking it might be related to her teeth and she is wondering if it might be related to her sinuses. She has not checked her blood counts recently. She last required a transfusion about 2.5 months ago and has had iron infusion done one month ago. Review of Systems Constitutional: denies: Fever Eyes: denies: Decreased vision Ears: denies: Ear pain Nose: reports: Sinus pressure / pain. denies: Rhinorrhea / runny nose, Congestion Throat: denies: Dental pain / toothache, Sore throat Cardiac: denies: Chest pain / pressure, Palpitations Respiratory: denies: Dyspnea, Cough GI: denies: Abdominal Pain, Nausea, Vomiting : denies: Dysuria, Frequency Skin: denies: Rash Musculoskeletal: reports: Extremity pain. denies: Neck pain, Back pain Neurologic: reports: Generalized weakness, Headache. 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 HEENT: None Psych: None Musculoskeletal: None Derm: None - Past Surgical History Past Surgical History: Yes /LOG PREPARER: Dilation and currettage - Present Medications Home Medications: Ambulatory Orders Medication Instructions Recorded Confirmed Ferrous Sulfate [Iron] 325 mg PO DAILY 12/18/16 01/03/18 Pnv95/Iron Fum/Folic Acid 1 - 3 tab PO DAILY 12/18/16 01/03/18 [ Caplet] Cyanocobalamin (Vitamin B-12) 1,000 mcg PO DAILY 12/04/17 01/03/18 [Vitamin B-12] Hydrocodone/Acetaminophen 1 - 2 each PO Q6H PRN #5 tablet 01/03/18 [Hydrocodon-Acetaminophen 5-325] - Allergies Allergies/Adverse Reactions: Allergies Allergy/AdvReac Type Severity Reaction Status Date / Time codeine [Codeine] AdvReac Intermediate itching/abd Verified 01/03/18 14:09 pain - Social History Does the pt smoke?: No Smoking Status: Never smoker Does the pt drink ETOH?: No Does the pt have substance abuse?: No - Immunizations Immunizations are current?: No Immunizations: No immun - POLST Patient has POLST: No PD ED PE NORMAL - Vitals Vital signs reviewed: Yes (normal ) - General General: Alert and oriented X 3, No acute distress, Well developed/nourished, Other (pale, really pale) - HEENT HEENT: Atraumatic, PERRL, EOMI, Ears normal, Moist mucous membranes, Pharynx benign, Dentition benign - Neck Neck: Supple, no meningeal sign, No bony TTP - Cardiac Cardiac: RRR, No murmur - Respiratory Respiratory: No respiratory distress, Clear bilaterally - Abdomen Abdomen: Soft, Non tender - Back Back: No CVA TTP, No spinal TTP - Derm Derm: Normal color, Warm and dry, No rash - Extremities Extremities: No deformity, No edema - Neuro Neuro: No motor deficit, No sensory deficit Eye Opening: Spontaneous Motor: Obeys Commands Verbal: Oriented GCS Score: 15 - Psych Psych: Normal mood, Normal affect Results - Vitals Vitals: Oxygen O2 Source Room air - Labs Labs: Laboratory Tests 01/03/18 01/03/18 01/03/18 15:25 15:25 16:24 WBC 2.9 L RBC 3.17 L Hgb 6.3 L* Hct 21.4 L MCV 67.4 L MCH 19.7 L MCHC 29.3 L RDW 18.9 H Plt Count 266 MPV 8.2 Neut # 1.6 Lymph # 1.0 L [place] # 0.2 Eos # 0.0 Baso # 0.0 Absolute Nucleated RBC 0.01 Nucleated RBC % 0.3 Manual Slide Review Indicated Platelet Estimate NORMAL (130-450,000) Platelet Morphology NORMAL APPEARANCE RBC Morph Micro Appear 2+ MICROCYTOSIS Sodium Potassium Chloride Carbon Dioxide Anion Gap BUN Creatinine Estimated GFR (MDRD) Glucose Calcium Total Bilirubin AST ALT Alkaline Phosphatase Troponin I Total Protein Albumin Globulin Albumin/Globulin Ratio Lipase Urine Color YELLOW Urine Clarity CLEAR Urine pH 7.0 Ur Specific [place] 1.020 1.020 Urine Protein NEGATIVE Urine Glucose (UA) NEGATIVE Urine Ketones NEGATIVE Urine Occult Blood NEGATIVE Urine Nitrite NEGATIVE Urine Bilirubin NEGATIVE Urine Urobilinogen 0.2 (NORMAL) Ur Leukocyte Esterase NEGATIVE Ur Microscopic Review NOT INDICATED Urine Culture Comments NOT INDICATED Urine HCG, Qual NEGATIVE Blood Type Antibody Screen Crossmatch IS Only 01/03/18 01/03/18 01/03/18 16:24 16:24 16:24 WBC RBC Hgb Hct MCV MCH MCHC RDW Plt Count MPV Neut # Lymph # [place] # Eos # Baso # Absolute Nucleated RBC Nucleated RBC % Manual Slide Review Platelet Estimate Platelet Morphology RBC Morph Micro Appear Sodium 137 Potassium 3.8 Chloride 103 Carbon Dioxide 24 Anion Gap 10.0 BUN 13 Creatinine 0.5 Estimated GFR (MDRD) 145 Glucose 108 H Calcium 8.8 Total Bilirubin 0.2 AST 13 ALT 16 Alkaline Phosphatase 45 Troponin I < 0.04 Total Protein 6.4 L Albumin 4.0 Globulin 2.4 Albumin/Globulin Ratio 1.7 Lipase 25 Urine Color Urine Clarity Urine pH Ur Specific [place] Urine Protein Urine Glucose (UA) Urine Ketones Urine Occult Blood Urine Nitrite Urine Bilirubin Urine Urobilinogen Ur Leukocyte Esterase Ur Microscopic Review Urine Culture Comments Urine HCG, Qual Blood Type O POSITIVE Antibody Screen NEGATIVE Crossmatch IS Only See Detail PD MEDICAL DECISION MAKING - ED course Complexity details: reviewed old records, reviewed results, re-evaluated patient , considered differential, d/w patient, d/w family ED course: 32-year-old female with persistent anemia had is symptomatic with headache dizziness and lightheadedness for the past 2 weeks. Today her blood counts are the lowest she has had. Transfusion is begun here in the emergency department. She is transfused 2 units of prbc with pre-treatment with benadryl and tylenol. Departure - Departure Disposition: 01 Home, Self Care Clinical Impression: Dysfunctional uterine bleeding, Symptomatic anemia, Headache Condition: Good Instructions: ED Anemia Type Not Specified, ED Bleed Irregular Vaginal Follow-Up: your,doctor in 1 week [Other] Prescriptions: Hydrocodone/Acetaminophen [Hydrocodon-Acetaminophen 5-325] 1 - 2 each PO Q6H PRN #5 tablet PRN Reason: pain Comments: You need to follow up with your doctor this week to have your blood counts rechecked and to have further evaluation of your anemia perfomed. You would likely benefit from a hematology referral from your doctor as well. Discharge Date/Time: 01/03/18 21:41
[2018-01-03 16:40] LABS: BASOPHILS % (AUTO) 1.2 %; EOSINOPHILS % (AUTO) 0.8 %; LYMPHOCYTES % (AUTO) 34.3 %; MEAN CORPUSCULAR HEMOGLOBIN 19.7 pg (27.0-31.0); MEAN CORPUSCULAR HGB CONC 29.3 g/dL (32.0-36.0); MEAN CORPUSCULAR VOLUME 67.4 fL (81.0-99.0); MEAN PLATELET VOLUME 8.2 fL (7.9-10.8); MONOCYTES # (AUTO) 0.2 10^3/uL (0.0-1.0); MONOCYTES % (AUTO) 8.4 %; NEUTROPHILS # (AUTO) 1.6 10^3/uL (1.5-6.6); NEUTROPHILS % (AUTO) 55.3 %; PLT - PLATELET COUNT 266 10^3/uL (130-450); RED BLOOD COUNT 3.17 10^6/uL (4.20-5.40); RED CELL DISTRIBUTION WIDTH 18.9 % (12.0-15.0); WHITE BLOOD COUNT 2.9 x10^3/uL (4.8-10.8)
[2018-01-03 16:42] LABS: HGB - HEMOGLOBIN 6.3 g/dL (12.0-16.0)
[2018-01-03 16:49] LABS: ALBUMIN/GLOBULIN RATIO 1.7 (1.0-2.2); BILIRUBIN,TOTAL 0.2 mg/dL (0.2-1.0); CALCIUM 8.8 mg/dL (8.5-10.3); CREATININE 0.5 mg/dL (0.4-1.0); TOTAL PROTEIN 6.4 g/dL (6.7-8.2)
[2018-01-03] MEDS ORDERED: ACETAMINOPHEN 325 MG TABLET PO STA (16:54)
[2018-01-03] MEDS ORDERED: diphenhydrAMINE INJ 50 MG/ML VIAL IVP STA (16:54)
[2018-01-03 17:12] LABS: PLATELET ESTIMATE, MANUAL NORMAL (130-450,000) (NORMAL); PLATELET MORPHOLOGY NORMAL APPEARANCE (NORMAL)
[2018-01-03] MEDS ORDERED: IBUPROFEN 600 MG TABLET PO STA (19:41)
[2018-01-03] MEDS ORDERED: HYDROcod/ACETAM 5/325 MG TABLET PO STA (20:55)
--- NOTE | 2018-01-03 20:56 | ED Physician Documentation ---
ED Addendum - Addendum Addendum: 01/03/18 20:55 Patient with continued headache during blood transfusion. Patient states that this is been present for the past 4 days. Gradual onset. Similar to prior headaches. No meningeal signs. Improved mildly with motrin and tylenol, more relief with hydrocodone. Transfusion completed without complications. Patient was informed of the importance of following up for further evaluation and care of her recurrent chronic anemia. Patient requests a small amount of pain medication for her headache for home in case it returns. She is well-appearing , nontoxic. Afebrile. Patient and family counseled regarding signs and symptoms for which I believe and urgent re-evaluation would be necessary. Patient with good understanding of and agreement to plan and is comfortable going home at this time This document was made in part using voice recognition software. While efforts are made to proofread this document, sound alike and grammatical errors may occur. Departure - Departure Disposition: 01 Home, Self Care Clinical Impression: Dysfunctional uterine bleeding, Symptomatic anemia Headache Qualifiers: Headache type: unspecified Headache chronicity pattern: chronic headache Intractability: not intractable Qualified Code(s): R51 - Headache Condition: Good Instructions: ED Anemia Type Not Specified, ED Bleed Irregular Vaginal Follow-Up: your,doctor in 1 week [Other] Prescriptions: Hydrocodone/Acetaminophen [Hydrocodon-Acetaminophen 5-325] 1 - 2 each PO Q6H PRN #5 tablet PRN Reason: pain Comments: You need to follow up with your doctor this week to have your blood counts rechecked and to have further evaluation of your anemia perfomed. You would likely benefit from a hematology referral from your doctor as well. Discharge Date/Time: 01/03/18 21:41
[2018-01-03 21:03] VITALS: BP 132/82
[2018-01-03] MEDS ORDERED: ONDANSETRON ODT 4 MG TABLET TL STA (21:44)
== END 2018-01-03 21:41 | disposition home or self-care (01) ==
LOC: ED 13:51
DX: N93.8 Other specified abnormal uterine and vaginal bleeding (principal); D64.9 Anemia, unspecified; R51 Headache; Z85.6 Personal history of leukemia
CPT/HCPCS: 80053; 81003; 81025; 83690; 84484; 85025; 86850; 86900; 86901; 86920; 96374; 99284; A9270; P9016; Q0162; 81001; 87086

== ENCOUNTER 2018-01-26 20:14 | Outpatient (CLI) | payer SELFPAY ==
[2018-01-26 18:59] LABS: BASOPHILS # (AUTO) 0.1 10^3/uL (0.0-0.1); BASOPHILS % (AUTO) 1.5 %; EOSINOPHILS # (AUTO) 0.1 10^3/uL (0.0-0.7); EOSINOPHILS % (AUTO) 2.8 %; HGB - HEMOGLOBIN 9.8 g/dL (12.0-16.0); LYMPHOCYTES # (AUTO) 0.9 10^3/uL (1.5-3.5); LYMPHOCYTES % (AUTO) 25.6 %; MEAN CORPUSCULAR HEMOGLOBIN 21.8 pg (27.0-31.0); MEAN CORPUSCULAR HGB CONC 30.1 g/dL (32.0-36.0); MEAN CORPUSCULAR VOLUME 72.5 fL (81.0-99.0); MEAN PLATELET VOLUME 9.2 fL (7.9-10.8); MEAN RETIC VALUE 110.9; MONOCYTES # (AUTO) 0.2 10^3/uL (0.0-1.0); MONOCYTES % (AUTO) 6.5 %; NEUTROPHILS # (AUTO) 2.2 10^3/uL (1.5-6.6); NEUTROPHILS % (AUTO) 63.6 %; PLT - PLATELET COUNT 334 10^3/uL (130-450); RED BLOOD COUNT 4.48 10^6/uL (4.20-5.40); RED CELL DISTRIBUTION WIDTH 23.9 % (12.0-15.0); WHITE BLOOD COUNT 3.5 x10^3/uL (4.8-10.8)
[2018-01-26 19:04] LABS: % IRON SATURATION 3 % (20-50); IRON 12 ug/dL (28-170); TOTAL IRON BINDING CAPACITY 375 ug/dL (250-450); TRANSFERRIN 268 mg/dL (192-382)
[2018-01-26 19:20] LABS: FERRITIN 5.5 ng/mL (11.0-306.8)
[2018-01-26 19:23] LABS: FOLATE 19.7 ng/mL (5.90 - >24.8)
[2018-01-26 19:37] LABS: PLATELET ESTIMATE, MANUAL NORMAL (130-450,000) (NORMAL); PLATELET MORPHOLOGY NORMAL APPEARANCE (NORMAL)
== END 2018-01-26 20:15 | disposition home or self-care (01) ==
LOC: LAB.N 20:14
PROVIDERS: ATTEND Physician Assistant Medical
DX: E55.9 Vitamin D deficiency, unspecified (principal); N93.8 Other specified abnormal uterine and vaginal bleeding; D50.8 Other iron deficiency anemias; D50.0 Iron deficiency anemia secondary to blood loss (chronic); D53.9 Nutritional anemia, unspecified
CPT/HCPCS: 36415; 82306; 82607; 82728; 82746; 83540; 84466; 85025; 85044

== ENCOUNTER 2018-03-24 21:54 | Emergency (ER) | payer MEDICAID ==
--- NOTE | 2018-03-24 22:13 | ED Physician Documentation ---
PD HPI HEADACHE - Stated complaint Stated Complaint: PRESTON/DIZZINESS - Chief complaint Chief Complaint: Neuro - History obtained from History obtained from: Patient - History of Present Illness Timing - onset: Yesterday (with worsening today) Timing - onset during: Light activity Timing - details: Gradual onset, Still present, Waxing and waning (headache and lightheaded with activity and standing/walking. Has had similar when blood count is low. She has had iron deficiency and chronic blood loss due to heavy periods. Is to see specialist ROUNDHOUSE SUPERVISOR in [place], but did not get to see her again this month. Has had several prior transfusions in the past.) Worst headache ever?: No: Worst headache ever? Quality: Throbbing, Aching Associated symptoms: Nausea. No: Fever, Stiff neck, Vomiting, Vision changes ( some improved with tylenol but patient says this headache and feeling of weakness is related to her anemia and transfuion is the most effective treatment.) Improved by: No: Meds Review of Systems Constitutional: denies: Fever, Chills, Myalgias Nose: denies: Rhinorrhea / runny nose, Congestion Throat: denies: Sore throat GI: reports: Nausea. denies: Abdominal Pain, Vomiting, Constipation, Diarrhea : reports: Irregular menses (heavy and mostly regular. Has been to Dr. Teague about them inthe past and referred to Specialist ROUNDHOUSE SUPERVISOR in [place].). denies: Dysuria, Frequency Neurologic: reports: Generalized weakness, Headache. 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 : None HEENT: None Psych: None Musculoskeletal: None Derm: None - Past Surgical History Past Surgical History: Yes /ROUNDHOUSE SUPERVISOR: Dilation and currettage - Present Medications Home Medications: Ambulatory Orders Medication Instructions Recorded Confirmed Ferrous Sulfate [Iron] 325 mg PO DAILY 12/18/16 01/03/18 Pnv95/Iron Fum/Folic Acid 1 - 3 tab PO DAILY 12/18/16 01/03/18 [ Caplet] Cyanocobalamin (Vitamin B-12) 1,000 mcg PO DAILY 12/04/17 01/03/18 [Vitamin B-12] Hydrocodone/Acetaminophen 1 - 2 each PO Q6H PRN #5 tablet 01/03/18 [Hydrocodon-Acetaminophen 5-325] - Allergies Allergies/Adverse Reactions: Allergies Allergy/AdvReac Type Severity Reaction Status Date / Time codeine [Codeine] AdvReac Intermediate itching/abd Verified 03/24/18 22:04 pain - Social History Does the pt smoke?: No Smoking Status: Never smoker Does the pt drink ETOH?: No Does the pt have substance abuse?: No - Immunizations Immunizations are current?: No Immunizations: No immun - POLST Patient has POLST: No PD ED PE NORMAL - Vitals Vital signs reviewed: Yes - General General: Alert and oriented X 3, No acute distress, Well developed/nourished - HEENT HEENT: Moist mucous membranes, Pharynx benign - Neck Neck: Supple, no meningeal sign, No adenopathy - Cardiac Cardiac: RRR, No murmur - Respiratory Respiratory: Clear bilaterally - Abdomen Abdomen: Soft, Non tender - Rectal Rectal: Deferred - Derm Derm: Warm and dry. No: Normal color (very pale skin and lips. ) - Extremities Extremities: No deformity, No tenderness to palpate, Normal ROM s pain - Neuro Neuro: Alert and oriented X 3, No motor deficit, Normal speech Results - Vitals Vitals: Vital Signs - 24 hr 03/24/18 03/24/18 03/24/18 22:00 22:30 23:25 Temperature 36.4 C L Heart Rate 70 64 64 Respiratory 16 23 20 Rate Blood Pressure 109/33 L 136/68 H 116/70 O2 Saturation 100 100 100 03/24/18 03/25/18 03/25/18 23:53 00:04 00:14 Temperature 36.0 C L 36.4 C L 36.4 C L Heart Rate 65 65 65 Respiratory 13 20 20 Rate Blood Pressure 113/66 106/85 H 100/66 O2 Saturation 100 03/25/18 03/25/18 03/25/18 00:50 01:30 01:38 Temperature 36.5 C 36.1 C L Heart Rate 60 62 63 Respiratory 12 18 15 Rate Blood Pressure 96/51 L 105/75 105/75 O2 Saturation 100 03/25/18 03/25/18 03/25/18 01:54 02:10 03:01 Temperature 36.4 C L 36.5 C 36.4 C L Heart Rate 62 62 59 L Respiratory 21 14 16 Rate Blood Pressure 106/85 H 106/68 196/66 H O2 Saturation 99 03/25/18 03/25/18 03/25/18 03:22 03:34 03:36 Temperature 36.3 C L 36.3 C L Heart Rate 59 L 61 58 L Respiratory 14 18 18 Rate Blood Pressure 106/66 108/83 H 108/83 H O2 Saturation 100 100 03/25/18 03:57 Temperature 36.5 C Heart Rate 60 Respiratory 13 Rate Blood Pressure 105/62 O2 Saturation Oxygen O2 Source Room air - Labs Labs: Laboratory Tests 03/24/18 03/24/18 03/24/18 22:15 22:15 22:15 WBC 4.0 L RBC 3.08 L Hgb 6.0 L* Hct 20.8 L MCV 67.6 L MCH 19.4 L MCHC 28.8 L RDW 19.8 H Plt Count 236 MPV 8.0 Neut # Not Reportable Lymph # Not Reportable [place] # Not Reportable Eos # Not Reportable Baso # Not Reportable Absolute Nucleated RBC Not Reportable Total Counted 100 Band Neuts % (Manual) 1 Reactive Lymphs % (Man) 2 Abnorm Lymph % (Manual) 1 Nucleated RBC % Not Reportable Neutrophils # (Manual) 2.0 Lymphocytes # (Manual) 1.7 Monocytes # (Manual) 0.3 Eosinophils # (Manual) 0.0 Basophils # (Manual) 0.1 Manual Slide Review Indicated Platelet Estimate NORMAL (130-450,000) Platelet Morphology NORMAL APPEARANCE RBC Morph Micro Appear 1+ BASO STIPPLING Sodium 138 Potassium 3.7 Chloride 106 Carbon Dioxide 26 Anion Gap 6.0 BUN 8 Creatinine 0.5 Estimated GFR (MDRD) 145 Glucose 118 H Calcium 8.9 Iron TIBC % Saturation Transferrin Total Bilirubin 0.2 AST 20 ALT 20 Alkaline Phosphatase 47 Total Protein 6.6 L Albumin 4.1 Globulin 2.5 Albumin/Globulin Ratio 1.6 Lipase 28 Serum HCG, Qual NEGATIVE Blood Type Antibody Screen Crossmatch IS Only 03/24/18 03/24/18 03/25/18 22:20 22:20 03:40 WBC RBC Hgb 7.6 L Hct 24.2 L MCV MCH MCHC RDW Plt Count MPV Neut # Lymph # [place] # Eos # Baso # Absolute Nucleated RBC Total Counted Band Neuts % (Manual) Reactive Lymphs % (Man) Abnorm Lymph % (Manual) Nucleated RBC % Neutrophils # (Manual) Lymphocytes # (Manual) Monocytes # (Manual) Eosinophils # (Manual) Basophils # (Manual) Manual Slide Review Platelet Estimate Platelet Morphology RBC Morph Micro Appear Sodium Potassium Chloride Carbon Dioxide Anion Gap BUN Creatinine Estimated GFR (MDRD) Glucose Calcium Iron 10 L TIBC 395 % Saturation 3 L Transferrin 282 Total Bilirubin AST ALT Alkaline Phosphatase Total Protein Albumin Globulin Albumin/Globulin Ratio Lipase Serum HCG, Qual Blood Type O POSITIVE Antibody Screen NEGATIVE Crossmatch IS Only See Detail PD MEDICAL DECISION MAKING - ED course Complexity details: reviewed old records, reviewed results, considered differential, d/w patient Departure - Departure Disposition: Home, Self Care Clinical Impression: Heavy menstrual bleeding Qualifiers: Menorrahagia type: with regular cycle Qualified Code(s): N92.0 - Excessive and frequent menstruation with regular cycle Headache Qualifiers: Headache type: unspecified Headache chronicity pattern: acute headache Intractability: not intractable Qualified Code(s): R51 - Headache Anemia Qualifiers: Anemia type: iron deficiency Iron deficiency anemia type: chronic blood loss Qualified Code(s): D50.0 - Iron deficiency anemia secondary to blood loss ( chronic) Condition: Stable Record reviewed to determine appropriate education?: Yes Instructions: ED Anemia Iron Deficiency, ED Cephalgia Unspecified Comments: Drink lots of fluids. Continue usual medications. Follow-up with your primary care and also with the gravity meter operator in [place]. Discharge Date/Time: 03/25/18 04:11
[2018-03-24 22:30] LABS: BASOPHILS % (AUTO) 2.7 %; EOSINOPHILS % (AUTO) 0.4 %; LYMPHOCYTES % (AUTO) 35.4 %; MEAN CORPUSCULAR HEMOGLOBIN 19.4 pg (27.0-31.0); MEAN CORPUSCULAR HGB CONC 28.8 g/dL (32.0-36.0); MEAN CORPUSCULAR VOLUME 67.6 fL (81.0-99.0); MONOCYTES % (AUTO) 6.8 %; NEUTROPHILS % (AUTO) 54.7 %; PLT - PLATELET COUNT 236 10^3/uL (130-450); RED BLOOD COUNT 3.08 10^6/uL (4.20-5.40); RED CELL DISTRIBUTION WIDTH 19.8 % (12.0-15.0)
[2018-03-24] MEDS ORDERED: ACETAMINOPHEN 1,000 MG/100 ML 100 ML IV STA (22:31)
[2018-03-24] MEDS ORDERED: diphenhydrAMINE INJ 50 MG/ML VIAL IVP STA (22:31)
[2018-03-24] MEDS ORDERED: ONDANSETRON 4 MG/2 ML VIAL IVP STA (22:31)
[2018-03-24 22:42] LABS: ALBUMIN 4.1 g/dL (3.2-5.5); ALBUMIN/GLOBULIN RATIO 1.6 (1.0-2.2); BILIRUBIN,TOTAL 0.2 mg/dL (0.2-1.0); CALCIUM 8.9 mg/dL (8.5-10.3); CREATININE 0.5 mg/dL (0.4-1.0); TOTAL PROTEIN 6.6 g/dL (6.7-8.2)
[2018-03-24 23:01] LABS: % IRON SATURATION 3 % (20-50); IRON 10 ug/dL (28-170); TOTAL IRON BINDING CAPACITY 395 ug/dL (250-450); TRANSFERRIN 282 mg/dL (192-382)
[2018-03-24] MEDS ORDERED: TRANEXAMIC ACID 1,000 MG in SODIUM CHLORIDE 0.9% 100ML 100 ML IV STA (23:03)
[2018-03-24 23:11] LABS: ABNORMAL LYMPHS % (MANUAL) 1 %; BAND NEUTROPHILS % (MANUAL) 1 %; BASOPHILS # (MANUAL) 0.1 10^3/uL (0-0.1); BASOPHILS % (MANUAL) 2 %; LYMPHOCYTES # (MANUAL) 1.7 10^3/uL (1.5-3.5); LYMPHOCYTES % (MANUAL) 39 %; MONOCYTES # (MANUAL) 0.3 10^3/uL (0.0-1.0); NEUTROPHILS % (MANUAL) 48 %
[2018-03-24 23:15] LABS: PLATELET ESTIMATE, MANUAL NORMAL (130-450,000) (NORMAL); PLATELET MORPHOLOGY NORMAL APPEARANCE (NORMAL)
[2018-03-24 23:50] LABS: HCG,QUALITATIVE BLOOD NEGATIVE
[2018-03-25 03:59] VITALS: BP 105/62
[2018-03-25 04:07] LABS: HGB - HEMOGLOBIN 7.6 g/dL (12.0-16.0)
== END 2018-03-25 04:11 | disposition home or self-care (01) ==
LOC: ED 21:54
DX: N92.0 Excessive and frequent menstruation with regular cycle (principal); R51 Headache; D50.0 Iron deficiency anemia secondary to blood loss (chronic); J45.909 Unspecified asthma, uncomplicated
CPT/HCPCS: 36415; 80053; 83540; 83690; 84466; 84703; 85014; 85018; 85025; 86850; 86900; 86901; 86920; 96365; 96375; 99283; 99284; J0131; J1200; P9016

== ENCOUNTER 2018-05-12 20:09 | Emergency (ER) | payer SELFPAY ==
[2018-05-12 21:10] LABS: BASOPHILS % (AUTO) 1.4 %; EOSINOPHILS # (AUTO) 0.1 10^3/uL (0.0-0.7); HGB - HEMOGLOBIN 7.2 g/dL (12.0-16.0); LYMPHOCYTES % (AUTO) 31.1 %; MEAN CORPUSCULAR HEMOGLOBIN 20.6 pg (27.0-31.0); MEAN CORPUSCULAR HGB CONC 28.8 g/dL (32.0-36.0); MEAN CORPUSCULAR VOLUME 71.4 fL (81.0-99.0); MEAN PLATELET VOLUME 8.7 fL (7.9-10.8); MONOCYTES # (AUTO) 0.3 10^3/uL (0.0-1.0); NEUTROPHILS # (AUTO) 1.9 10^3/uL (1.5-6.6); NEUTROPHILS % (AUTO) 56.5 %; PLT - PLATELET COUNT 263 10^3/uL (130-450); RED BLOOD COUNT 3.49 10^6/uL (4.20-5.40); RED CELL DISTRIBUTION WIDTH 20.9 % (12.0-15.0); WHITE BLOOD COUNT 3.4 x10^3/uL (4.8-10.8)
[2018-05-12 21:13] LABS: ALBUMIN 3.9 g/dL (3.2-5.5); ALBUMIN/GLOBULIN RATIO 1.4 (1.0-2.2); BILIRUBIN,TOTAL 0.2 mg/dL (0.2-1.0); CREATININE 0.5 mg/dL (0.4-1.0); TOTAL PROTEIN 6.6 g/dL (6.7-8.2)
[2018-05-12] MEDS ORDERED: KETOROLAC 60 MG/2 ML VIAL IVP STA (21:17)
[2018-05-12 21:28] LABS: HCG UR QUAL NEGATIVE
[2018-05-12] MEDS ORDERED: diphenhydrAMINE 25 MG CAPSULE PO STA (21:52)
[2018-05-12] MEDS ORDERED: ACETAMINOPHEN 325 MG TABLET PO STA (21:52)
[2018-05-12] MEDS ORDERED: MORPHINE 2 MG/ML SYRINGE IVP STA (22:27)
[2018-05-12 22:31] LABS: PLATELET ESTIMATE, MANUAL NORMAL (130-450,000) (NORMAL); PLATELET MORPHOLOGY NORMAL APPEARANCE (NORMAL)
[2018-05-13] MEDS ORDERED: MORPHINE 2 MG/ML SYRINGE IVP STA (03:00)
[2018-05-13 03:42] VITALS: BP 125/84
--- NOTE | 2018-05-14 11:55 | ED Physician Documentation ---
History of Present Illness - Stated complaint Stated Complaint: WEAKNESS/CONFUSION - Chief complaint Chief Complaint: Neuro - History obtained from History obtained from: Patient - History of Present Illness Timing: Yesterday Pain level now: 5 Improved by: rest Worsened by: standing, exertion - Additonal information Additional information: c/o dizziness, bifrontal headache, fatigue. she has had similar symptoms in the past, which correlates with her severe anemia. Typically, she comes to the emergency department when she has the symptoms and receives transfusions which results in symptom resolution. Review of Systems Constitutional: reports: Fatigue. denies: Fever Cardiac: reports: Reviewed and negative Respiratory: reports: Reviewed and negative GI: reports: Reviewed and negative : reports: Vaginal bleeding Neurologic: reports: Generalized weakness, Headache. 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 : None HEENT: None Psych: None Musculoskeletal: None Derm: None - Past Surgical History Past Surgical History: Yes /CONTENT PRODUCTION SPECIALIST: Dilation and currettage - Present Medications Home Medications: Ambulatory Orders Medication Instructions Recorded Confirmed Ferrous Sulfate [Iron] 325 mg PO DAILY 12/18/16 01/03/18 Pnv95/Iron Fum/Folic Acid 1 - 3 tab PO DAILY 12/18/16 01/03/18 [ Caplet] Cyanocobalamin (Vitamin B-12) 1,000 mcg PO DAILY 12/04/17 01/03/18 [Vitamin B-12] Hydrocodone/Acetaminophen 1 - 2 each PO Q6H PRN #5 tablet 01/03/18 [Hydrocodon-Acetaminophen 5-325] Hydrocodone/Acetaminophen 1 - 2 each PO Q6HR PRN #14 tablet 05/13/18 [Hydrocodon-Acetaminophen 5-325] - Allergies Allergies/Adverse Reactions: Allergies Allergy/AdvReac Type Severity Reaction Status Date / Time codeine [Codeine] AdvReac Intermediate itching/abd Verified 05/12/18 20:21 pain - Social History Does the pt smoke?: No Smoking Status: Never smoker Does the pt drink ETOH?: No Does the pt have substance abuse?: No - Immunizations Immunizations are current?: No Immunizations: No immun - POLST Patient has POLST: No PD ED PE NORMAL - Vitals Vital signs reviewed: Yes - General General: Alert and oriented X 3, No acute distress, Well developed/nourished - HEENT HEENT: PERRL, EOMI, Moist mucous membranes - Cardiac Cardiac: RRR, No murmur - Respiratory Respiratory: No respiratory distress, Clear bilaterally - Abdomen Abdomen: Soft, Non tender PD ED PE EXPANDED - Derm Derm: Pale Results - Vitals Vitals: Oxygen O2 Source Room air - Labs Labs: Laboratory Tests 05/12/18 05/12/18 05/12/18 20:40 20:40 20:40 WBC 3.4 L RBC 3.49 L Hgb 7.2 L Hct 24.9 L MCV 71.4 L MCH 20.6 L MCHC 28.8 L RDW 20.9 H Plt Count 263 MPV 8.7 Neut # (Auto) 1.9 Lymph # (Auto) 1.0 L [place] # (Auto) 0.3 Eos # (Auto) 0.1 Baso # (Auto) 0.0 Absolute Nucleated RBC 0.01 Nucleated RBC % 0.2 Manual Slide Review Indicated Platelet Estimate NORMAL (130-450,000) Platelet Morphology NORMAL APPEARANCE RBC Morph Micro Appear 1+ TEARDROP CELLS Sodium 136 Potassium 3.5 Chloride 107 Carbon Dioxide 23 Anion Gap 6.0 BUN 14 Creatinine 0.5 Estimated GFR (MDRD) 145 Glucose 115 H Calcium 9.0 Total Bilirubin 0.2 AST 14 ALT 13 Alkaline Phosphatase 57 Total Protein 6.6 L Albumin 3.9 Globulin 2.7 Albumin/Globulin Ratio 1.4 Lipase 30 Ur Specific [place] Urine HCG, Qual Blood Type O POSITIVE Antibody Screen NEGATIVE Crossmatch IS Only See Detail 05/12/18 05/13/18 21:15 03:20 WBC RBC Hgb 9.0 L Hct 29.1 L MCV MCH MCHC RDW Plt Count MPV Neut # (Auto) Lymph # (Auto) [place] # (Auto) Eos # (Auto) Baso # (Auto) Absolute Nucleated RBC Nucleated RBC % Manual Slide Review Platelet Estimate Platelet Morphology RBC Morph Micro Appear Sodium Potassium Chloride Carbon Dioxide Anion Gap BUN Creatinine Estimated GFR (MDRD) Glucose Calcium Total Bilirubin AST ALT Alkaline Phosphatase Total Protein Albumin Globulin Albumin/Globulin Ratio Lipase Ur Specific [place] <=1.005 Urine HCG, Qual NEGATIVE Blood Type Antibody Screen Crossmatch IS Only PD MEDICAL DECISION MAKING - ED course Complexity details: reviewed old records, reviewed results, re-evaluated patient , considered differential, d/w patient, d/w family ED course: given two units of packed red blood cells, transfused, and on reevaluation she appears to be in NAD, and reports feeling significantly improved. She did require some analgesics for her headache. Repeat H&H reveals hemoglobin went from 7.2 to 9. The cause of her anemia appears to be an underlying chronic anemia that is worsened when she has her menses. - Sepsis Event Vital Signs: Oxygen O2 Source Room air Departure - Departure Disposition: 01 Home, Self Care Clinical Impression: Anemia Qualifiers: Anemia type: unspecified type Qualified Code(s): D64.9 - Anemia, unspecified Condition: Good Instructions: ED Anemia Type Not Specified, ED Headache Migraine Prescriptions: Hydrocodone/Acetaminophen [Hydrocodon-Acetaminophen 5-325] 1 - 2 each PO Q6HR PRN #14 tablet PRN Reason: Headache Discharge Date/Time: 05/13/18 04:00
== END 2018-05-13 04:00 | disposition home or self-care (01) ==
LOC: ED 20:09
DX: D64.9 Anemia, unspecified (principal)
CPT/HCPCS: 36415; 36430; 80053; 81025; 83690; 85014; 85018; 85025; 86850; 86900; 86901; 86920; 93005; 96374; 96375; 96376; 99283; 99284; A9270; J2270; P9016

== ENCOUNTER 2018-06-16 08:00 | Outpatient (CLI) | payer SELFPAY ==
[2018-06-16 19:12] LABS: EOSINOPHILS % (AUTO) 1.3 %; LYMPHOCYTES % (AUTO) 33.8 %; MEAN CORPUSCULAR HEMOGLOBIN 22.3 pg (27.0-31.0); MEAN CORPUSCULAR HGB CONC 29.8 g/dL (32.0-36.0); MEAN CORPUSCULAR VOLUME 74.9 fL (81.0-99.0); MEAN PLATELET VOLUME 9.2 fL (7.9-10.8); MONOCYTES % (AUTO) 9.4 %; NEUTROPHILS % (AUTO) 54.5 %; PLT - PLATELET COUNT 275 10^3/uL (130-450); RED CELL DISTRIBUTION WIDTH 21.1 % (12.0-15.0); WHITE BLOOD COUNT 2.7 x10^3/uL (4.8-10.8)
[2018-06-16 19:14] LABS: ABNORMAL LYMPHS % (MANUAL) 0 %
[2018-06-16 21:07] LABS: BAND NEUTROPHILS % (MANUAL) 1 %; EOSINOPHILS # (MANUAL) 0.1 10^3/uL (0-0.7); LYMPHOCYTES # (MANUAL) 0.9 10^3/uL (1.5-3.5); LYMPHOCYTES % (MANUAL) 35 %; MONOCYTES # (MANUAL) 0.2 10^3/uL (0.0-1.0); NEUTROPHILS # (MANUAL) 1.5 10^3/uL (1.5-6.6); NEUTROPHILS % (MANUAL) 54 %
[2018-06-16 21:12] LABS: PLATELET ESTIMATE, MANUAL NORMAL (130-450,000) (NORMAL); PLATELET MORPHOLOGY NORMAL APPEARANCE (NORMAL); RBC MORPHOLOGY (MULTIPLE) NORMAL APPEARANCE (NORMAL)
== END 2018-06-16 08:01 | disposition home or self-care (01) ==
LOC: LAB.N 08:00
PROVIDERS: ATTEND Physician Assistant Medical
DX: D50.8 Other iron deficiency anemias (principal)
CPT/HCPCS: 36415; 85025

== ENCOUNTER 2018-06-24 13:04 | Outpatient (CLI) | payer SELFPAY ==
[2018-06-24 18:57] LABS: BASOPHILS % (AUTO) 0.5 %; EOSINOPHILS # (AUTO) 0.1 10^3/uL (0.0-0.7); EOSINOPHILS % (AUTO) 2.5 %; HGB - HEMOGLOBIN 8.5 g/dL (12.0-16.0); LYMPHOCYTES # (AUTO) 1.1 10^3/uL (1.5-3.5); MEAN CORPUSCULAR HEMOGLOBIN 22.2 pg (27.0-31.0); MEAN CORPUSCULAR HGB CONC 30.2 g/dL (32.0-36.0); MEAN CORPUSCULAR VOLUME 73.7 fL (81.0-99.0); MEAN PLATELET VOLUME 8.8 fL (7.9-10.8); MONOCYTES # (AUTO) 0.2 10^3/uL (0.0-1.0); MONOCYTES % (AUTO) 6.6 %; NEUTROPHILS # (AUTO) 1.7 10^3/uL (1.5-6.6); NEUTROPHILS % (AUTO) 54.4 %; PLT - PLATELET COUNT 212 10^3/uL (130-450); RED BLOOD COUNT 3.83 10^6/uL (4.20-5.40); RED CELL DISTRIBUTION WIDTH 21.5 % (12.0-15.0); WHITE BLOOD COUNT 3.1 x10^3/uL (4.8-10.8)
[2018-06-24 19:32] LABS: DIFFERENTIAL COMMENT MANUAL=AUTO DIFF; PLATELET ESTIMATE, MANUAL NORMAL (130-450,000) (NORMAL); PLATELET MORPHOLOGY NORMAL APPEARANCE (NORMAL)
[2018-06-24 19:44] LABS: ALBUMIN 3.7 g/dL (3.2-5.5); ALBUMIN/GLOBULIN RATIO 1.2 (1.0-2.2); BILIRUBIN,TOTAL 0.6 mg/dL (0.2-1.0); CALCIUM 8.8 mg/dL (8.5-10.3); CREATININE 0.6 mg/dL (0.4-1.0); TOTAL PROTEIN 6.7 g/dL (6.7-8.2)
== END 2018-06-24 13:05 | disposition home or self-care (01) ==
LOC: LAB.N 13:04
PROVIDERS: ATTEND Physician Assistant Medical
DX: D53.9 Nutritional anemia, unspecified (principal)
CPT/HCPCS: 36415; 80053; 85025

== ENCOUNTER 2018-07-11 13:43 | Emergency (ER) | payer SELFPAY ==
[2018-07-11 15:33] LABS: BASOPHILS % (AUTO) 1.2 %; HGB - HEMOGLOBIN 7.6 g/dL (12.0-16.0); LYMPHOCYTES # (AUTO) 1.1 10^3/uL (1.5-3.5); LYMPHOCYTES % (AUTO) 35.2 %; MEAN CORPUSCULAR HEMOGLOBIN 22.1 pg (27.0-31.0); MEAN CORPUSCULAR HGB CONC 30.8 g/dL (32.0-36.0); MEAN CORPUSCULAR VOLUME 71.9 fL (81.0-99.0); MEAN PLATELET VOLUME 7.6 fL (7.9-10.8); MONOCYTES # (AUTO) 0.3 10^3/uL (0.0-1.0); MONOCYTES % (AUTO) 8.3 %; NEUTROPHILS # (AUTO) 1.7 10^3/uL (1.5-6.6); NEUTROPHILS % (AUTO) 54.3 %; PLT - PLATELET COUNT 329 10^3/uL (130-450); RED BLOOD COUNT 3.44 10^6/uL (4.20-5.40); RED CELL DISTRIBUTION WIDTH 20.9 % (12.0-15.0); WHITE BLOOD COUNT 3.2 x10^3/uL (4.8-10.8)
[2018-07-11 15:48] LABS: ALBUMIN 3.8 g/dL (3.2-5.5); ALBUMIN/GLOBULIN RATIO 1.4 (1.0-2.2); BILIRUBIN,TOTAL 0.5 mg/dL (0.2-1.0); CALCIUM 8.6 mg/dL (8.5-10.3); CREATININE 0.5 mg/dL (0.4-1.0); TOTAL PROTEIN 6.6 g/dL (6.7-8.2)
[2018-07-11 16:01] LABS: PLATELET ESTIMATE, MANUAL NORMAL (130-450,000) (NORMAL); PLATELET MORPHOLOGY NORMAL APPEARANCE (NORMAL)
--- NOTE | 2018-07-11 16:19 | ED Physician Documentation ---
PD HPI DYSPNEA - Stated complaint Stated Complaint: DIZZY,SOA,CHEST-BACK PX,WEAK - Chief complaint Chief Complaint: General - History obtained from History obtained from: Patient - History of Present Illness Timing - onset: How many days ago (few) Timing - onset during: Light activity Timing - duration: Days Timing - details: Gradual onset, Still present, Waxing and waning Inciting event(s): Other (having some wheezing and feeling of chest tightness. Had recent menses with heavy bleeding, which has been common due to fibroids.). No: URI Associated symptoms: Wheezing, Chest pain / discomfort. No: Fever, Cough, Palpitations, Bilateral edema Similar symptoms before: Diagnosis (anemia) Recently seen: Emergency Dept, Other (has appt with STATISTICS TUTOR at regarding removal fibroids, appt on ) Review of Systems Constitutional: reports: Fatigue. denies: Fever, Chills, Myalgias, Weight Loss Nose: denies: Rhinorrhea / runny nose, Congestion Throat: denies: Sore throat Cardiac: reports: Chest pain / pressure. denies: Palpitations, Pedal edema, Calf pain Respiratory: reports: Dyspnea, Wheezing. denies: Cough GI: denies: Abdominal Pain, Nausea, Vomiting, Diarrhea : reports: Irregular menses (heavy bleeding). 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 : None HEENT: None Psych: None Musculoskeletal: None Derm: None - Past Surgical History Past Surgical History: Yes /STATISTICS TUTOR: Dilation and currettage - Present Medications Home Medications: Ambulatory Orders Medication Instructions Recorded Confirmed Ferrous Sulfate [Iron] 325 mg PO DAILY 12/18/16 01/03/18 Pnv95/Iron Fum/Folic Acid 1 - 3 tab PO DAILY 12/18/16 01/03/18 [ Caplet] Cyanocobalamin (Vitamin B-12) 1,000 mcg PO DAILY 12/04/17 01/03/18 [Vitamin B-12] Hydrocodone/Acetaminophen 1 - 2 each PO Q6H PRN #5 tablet 01/03/18 [Hydrocodon-Acetaminophen 5-325] Hydrocodone/Acetaminophen 1 - 2 each PO Q6HR PRN #14 tablet 05/13/18 [Hydrocodon-Acetaminophen 5-325] Albuterol Sulf [Ventolin Hfa 2 - 3 puffs INH Q4HR PRN #1 inhaler 07/11/18 Inhaler] Dexamethasone [Decadron] 4 mg PO DAILY #5 tablet 07/11/18 Melatonin 3 mg PO DAILY #30 tablet 07/11/18 - Allergies Allergies/Adverse Reactions: Allergies Allergy/AdvReac Type Severity Reaction Status Date / Time codeine [Codeine] AdvReac Intermediate itching/abd Verified 05/12/18 20:21 pain - Social History Does the pt smoke?: No Smoking Status: Never smoker Does the pt drink ETOH?: No Does the pt have substance abuse?: No - Immunizations Immunizations are current?: No Immunizations: No immun - POLST Patient has POLST: No PD ED PE NORMAL - Vitals Vital signs reviewed: Yes - General General: Alert and oriented X 3, No acute distress, Well developed/nourished - HEENT HEENT: Moist mucous membranes, Pharynx benign - Neck Neck: Supple, no meningeal sign, No adenopathy, No JVD - Cardiac Cardiac: RRR, No murmur - Respiratory Respiratory: No respiratory distress. No: Clear bilaterally (exp wheezing without coarse sounds. ) - Abdomen Abdomen: Soft, Non tender - Female Female : Deferred - Rectal Rectal: Deferred - Back Back: No CVA TTP - Derm Derm: Normal color, Warm and dry - Extremities Extremities: No deformity, No tenderness to palpate - Neuro Neuro: Alert and oriented X 3, No motor deficit, Normal speech Results - Vitals Vitals: Vital Signs - 24 hr 07/11/18 07/11/18 14:05 17:04 Temperature 36.2 C L Heart Rate 63 61 Respiratory 18 18 Rate Blood Pressure 118/67 130/68 O2 Saturation 97 100 Oxygen O2 Source Room air - Labs Labs: Laboratory Tests 07/11/18 07/11/18 07/11/18 15:25 15:25 16:15 WBC 3.2 L RBC 3.44 L Hgb 7.6 L Hct 24.7 L MCV 71.9 L MCH 22.1 L MCHC 30.8 L RDW 20.9 H Plt Count 329 MPV 7.6 L Neut # (Auto) 1.7 Lymph # (Auto) 1.1 L [place] # (Auto) 0.3 Eos # (Auto) 0.0 Baso # (Auto) 0.0 Absolute Nucleated RBC 0.00 Nucleated RBC % 0.0 Manual Slide Review Indicated Platelet Estimate NORMAL (130-450,000) Platelet Morphology NORMAL APPEARANCE RBC Morph Micro Appear 2+ POIKILOCYTOSIS Sodium 137 Potassium 3.5 Chloride 107 Carbon Dioxide 24 Anion Gap 6.0 BUN 11 Creatinine 0.5 Estimated GFR (MDRD) 144 Glucose 130 H Calcium 8.6 Total Bilirubin 0.5 AST 44 H ALT 47 Alkaline Phosphatase 55 Total Protein 6.6 L Albumin 3.8 Globulin 2.8 Albumin/Globulin Ratio 1.4 Lipase 33 Urine Color YELLOW Urine Clarity CLEAR Urine pH 6.0 Ur Specific [place] <=1.005 Urine Protein NEGATIVE Urine Glucose (UA) NEGATIVE Urine Ketones NEGATIVE Urine Occult Blood NEGATIVE Urine Nitrite NEGATIVE Urine Bilirubin NEGATIVE Urine Urobilinogen 0.2 (NORMAL) Ur Leukocyte Esterase NEGATIVE Ur Microscopic Review NOT INDICATED Urine Culture Comments NOT INDICATED Urine HCG, Qual NEGATIVE PD MEDICAL DECISION MAKING - ED course Complexity details: reviewed results, considered differential (feeling anemic and weak, with some dyspnea and wheezing too. Her blood count is not low enough for transfusion (7.6). Has some asthma component too. ), d/w patient - Sepsis Event Vital Signs: Vital Signs - 24 hr 07/11/18 07/11/18 14:05 17:04 Temperature 36.2 C L Heart Rate 63 61 Respiratory 18 18 Rate Blood Pressure 118/67 130/68 O2 Saturation 97 100 Oxygen O2 Source Room air Departure - Departure Disposition: 01 Home, Self Care Clinical Impression: Dyspnea Qualifiers: Dyspnea type: dyspnea on exertion Qualified Code(s): R06.09 - Other forms of dyspnea Fatigue Qualifiers: Fatigue type: unspecified Qualified Code(s): R53.83 - Other fatigue Anemia Qualifiers: Anemia type: iron deficiency Iron deficiency anemia type: chronic blood loss Qualified Code(s): D50.0 - Iron deficiency anemia secondary to blood loss ( chronic) Asthma Qualifiers: Asthma severity: mild Asthma persistence: intermittent Asthma complication type : with acute exacerbation Qualified Code(s): J45.21 - Mild intermittent asthma with (acute) exacerbation Insomnia Qualifiers: Insomnia type: unspecified Qualified Code(s): G47.00 - Insomnia, unspecified Condition: Stable Record reviewed to determine appropriate education?: Yes Follow-Up: Jeff Mejía PA-C [Primary Care Provider] - Prescriptions: Albuterol Sulf [Ventolin Hfa Inhaler] 2 - 3 puffs INH Q4HR PRN #1 inhaler PRN Reason: Shortness Of Air/Wheezing Dexamethasone [Decadron] 4 mg PO DAILY #5 tablet Melatonin 3 mg PO DAILY #30 tablet Comments: Continue usual medications. Stay well-hydrated. Start the albuterol inhaler 2- 3 puffs 4 times a day for the next 7-10 days. Decadron steroid anti- inflammatory for the bronchioles. I think there are some asthma component as well causing your shortness of breath and chest tightness. For your insomnia, use melatonin 3 mg to 6 mg nightly to help with sleep. Follow-up with planned testing and specialist appointments Discharge Date/Time: 07/11/18 17:08
[2018-07-11 16:34] LABS: BILIRUBIN,URINE NEGATIVE (NEGATIVE); GLUCOSE, URINE (UA) NEGATIVE (NEGATIVE); KETONES,URINE (UA) NEGATIVE (NEGATIVE); LEUKOCYTE ESTERASE, URINE NEGATIVE (NEGATIVE); NITRITE,URINE NEGATIVE (NEGATIVE); OCCULT BLOOD,URINE NEGATIVE (NEGATIVE); PROTEIN,URINE NEGATIVE (NEGATIVE); UROBILINOGEN,URINE 0.2 (NORMAL) E.U./dL (NORMAL)
[2018-07-11 16:38] LABS: CLARITY,URINE CLEAR (CLEAR); HCG UR QUAL NEGATIVE
[2018-07-11 17:04] VITALS: BP 130/68
== END 2018-07-11 17:08 | disposition home or self-care (01) ==
LOC: ED 13:43
DX: R53.83 Other fatigue (principal); D50.0 Iron deficiency anemia secondary to blood loss (chronic); J45.21 Mild intermittent asthma with (acute) exacerbation; G47.00 Insomnia, unspecified
CPT/HCPCS: 36415; 80053; 81001; 81003; 81025; 83690; 85025; 87086; 99283

== ENCOUNTER 2018-07-14 13:01 | Outpatient (CLI) | payer SELFPAY | END 2018-07-14 13:02 | disposition home or self-care (01) | LOC: DI 13:01 | PROVIDERS: ATTEND Physician Assistant Medical | DX: R01.1 Cardiac murmur, unspecified (principal) | CPT/HCPCS: 93306 ==

== ENCOUNTER 2018-08-03 14:28 | Emergency (ER) | payer SELFPAY ==
[2018-08-03 15:32] LABS: PT - PROTHROMBIN TIME 11.3 secs (9.9-12.6)
[2018-08-03 15:34] LABS: BASOPHILS % (AUTO) 1.6 %; EOSINOPHILS # (AUTO) 0.1 10^3/uL (0.0-0.7); EOSINOPHILS % (AUTO) 1.9 %; HGB - HEMOGLOBIN 7.3 g/dL (12.0-16.0); LYMPHOCYTES # (AUTO) 1.1 10^3/uL (1.5-3.5); LYMPHOCYTES % (AUTO) 37.6 %; MEAN CORPUSCULAR HEMOGLOBIN 21.3 pg (27.0-31.0); MEAN CORPUSCULAR HGB CONC 29.8 g/dL (32.0-36.0); MEAN CORPUSCULAR VOLUME 71.4 fL (81.0-99.0); MEAN PLATELET VOLUME 8.5 fL (7.9-10.8); MONOCYTES # (AUTO) 0.3 10^3/uL (0.0-1.0); MONOCYTES % (AUTO) 8.3 %; NEUTROPHILS # (AUTO) 1.5 10^3/uL (1.5-6.6); NEUTROPHILS % (AUTO) 50.6 %; PLT - PLATELET COUNT 311 10^3/uL (130-450); RED BLOOD COUNT 3.45 10^6/uL (4.20-5.40); RED CELL DISTRIBUTION WIDTH 22.3 % (12.0-15.0); WHITE BLOOD COUNT 3.1 x10^3/uL (4.8-10.8)
[2018-08-03 15:36] LABS: ALBUMIN 3.9 g/dL (3.2-5.5); ALBUMIN/GLOBULIN RATIO 1.4 (1.0-2.2); BILIRUBIN,TOTAL 0.4 mg/dL (0.2-1.0); CALCIUM 8.8 mg/dL (8.5-10.3); CREATININE 0.6 mg/dL (0.4-1.0); TOTAL PROTEIN 6.7 g/dL (6.7-8.2)
[2018-08-03 16:09] LABS: PLATELET ESTIMATE, MANUAL NORMAL (130-450,000) (NORMAL); PLATELET MORPHOLOGY NORMAL APPEARANCE (NORMAL)
--- NOTE | 2018-08-03 16:47 | ED Physician Documentation ---
PD HPI DYSPNEA - Stated complaint Stated Complaint: Poss Anemia - Chief complaint Chief Complaint: General - History obtained from History obtained from: Patient - History of Present Illness Timing - onset: How many weeks ago (1 week) Timing - onset during: Light activity Timing - duration: Weeks (1Week of worsening dyspnea on exertion. She has had this recurrently due to significant dysfunctional uterine bleeding. She is on her period this past week and feels that her blood count is low. She has been to a eyewear manufacturing supervisor specialist at [facility] with planned endometrial ablation October 15. She is trying to see if that can be done sooner. She had not wanted to get a hysterectomy. She has had ongoing blood loss enough to cause symptomatic anemia with transfusions periodically in the past. She denies any blood or melena in her stool.) Timing - details: Gradual onset Improved by: Rest, Other (she has had improvement with transfusions in the past.) Worsened by: Exertion Associated symptoms: No: Fever, Cough, Wheezing, Bilateral edema Similar symptoms before: Diagnosis (anemia from DUB.) Review of Systems Constitutional: reports: Fatigue. denies: Fever, Chills Nose: denies: Rhinorrhea / runny nose, Congestion Throat: denies: Sore throat Respiratory: denies: Cough GI: denies: Bloody / black stool : reports: Vaginal bleeding. denies: Dysuria, Frequency Musculoskeletal: denies: Extremity swelling Neurologic: reports: Generalized weakness. 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 HEENT: None Psych: None Musculoskeletal: None Derm: None - Past Surgical History Past Surgical History: Yes /SENIOR SERVICE AIDE: Dilation and currettage - Present Medications Home Medications: Ambulatory Orders Medication Instructions Recorded Confirmed Ferrous Sulfate [Iron] 325 mg PO DAILY 12/18/16 01/03/18 Pnv95/Iron Fum/Folic Acid 1 - 3 tab PO DAILY 12/18/16 01/03/18 [ Caplet] Cyanocobalamin (Vitamin B-12) 1,000 mcg PO DAILY 12/04/17 01/03/18 [Vitamin B-12] Melatonin 3 mg PO DAILY #30 tablet 07/11/18 - Allergies Allergies/Adverse Reactions: Allergies Allergy/AdvReac Type Severity Reaction Status Date / Time codeine [Codeine] AdvReac Intermediate itching/abd Verified 05/12/18 20:21 pain - Social History Does the pt smoke?: No Smoking Status: Never smoker Does the pt drink ETOH?: No Does the pt have substance abuse?: No - Immunizations Immunizations are current?: No Immunizations: No immun - POLST Patient has POLST: No PD ED PE NORMAL - Vitals Vital signs reviewed: Yes - General General: Alert and oriented X 3, No acute distress, Well developed/nourished - HEENT HEENT: Other (moderate pallor) - Neck Neck: No adenopathy - Cardiac Cardiac: RRR, No murmur - Respiratory Respiratory: Clear bilaterally - Abdomen Abdomen: Soft, Non tender - Female Female : Deferred - Rectal Rectal: Deferred - Back Back: No CVA TTP - Derm Derm: Warm and dry. No: Normal color (pale) - Extremities Extremities: Normal ROM s pain, No edema, No calf tenderness / cord - Neuro Neuro: Alert and oriented X 3, No motor deficit, Normal speech Results - Vitals Vitals: Vital Signs - 24 hr 08/03/18 08/03/18 14:36 18:33 Temperature 36.4 C L 36.5 C Heart Rate 69 61 Respiratory 16 18 Rate Blood Pressure 114/72 103/65 O2 Saturation 100 Oxygen O2 Source Room air - Labs Labs: Laboratory Tests 08/03/18 08/03/18 08/03/18 15:15 15:15 15:15 WBC 3.1 L RBC 3.45 L Hgb 7.3 L Hct 24.6 L MCV 71.4 L MCH 21.3 L MCHC 29.8 L RDW 22.3 H Plt Count 311 MPV 8.5 Neut # (Auto) 1.5 Lymph # (Auto) 1.1 L [place] # (Auto) 0.3 Eos # (Auto) 0.1 Baso # (Auto) 0.0 Absolute Nucleated RBC 0.00 Nucleated RBC % 0.1 Manual Slide Review Indicated Platelet Estimate NORMAL (130-450,000) Platelet Morphology NORMAL APPEARANCE RBC Morph Micro Appear 1+ TEARDROP CELLS PT 11.3 INR 1.0 Sodium 139 Potassium 3.7 Chloride 107 Carbon Dioxide 25 Anion Gap 7.0 BUN 11 Creatinine 0.6 Estimated GFR (MDRD) 117 Glucose 109 H Calcium 8.8 Total Bilirubin 0.4 AST 18 ALT 19 Alkaline Phosphatase 56 Total Protein 6.7 Albumin 3.9 Globulin 2.8 Albumin/Globulin Ratio 1.4 Lipase 33 Urine Color Urine Clarity Urine pH Ur Specific [place] Urine Protein Urine Glucose (UA) Urine Ketones Urine Occult Blood Urine Nitrite Urine Bilirubin Urine Urobilinogen Ur Leukocyte Esterase Urine RBC Urine WBC Ur Squamous Epith Cells Urine Bacteria Ur Microscopic Review Urine Culture Comments Urine HCG, Qual Blood Type Antibody Screen Crossmatch IS Only 08/03/18 08/03/18 15:15 16:50 WBC RBC Hgb Hct MCV MCH MCHC RDW Plt Count MPV Neut # (Auto) Lymph # (Auto) [place] # (Auto) Eos # (Auto) Baso # (Auto) Absolute Nucleated RBC Nucleated RBC % Manual Slide Review Platelet Estimate Platelet Morphology RBC Morph Micro Appear PT INR Sodium Potassium Chloride Carbon Dioxide Anion Gap BUN Creatinine Estimated GFR (MDRD) Glucose Calcium Total Bilirubin AST ALT Alkaline Phosphatase Total Protein Albumin Globulin Albumin/Globulin Ratio Lipase Urine Color CLEAR Urine Clarity CLEAR Urine pH 6.5 Ur Specific [place] <=1.005 Urine Protein NEGATIVE Urine Glucose (UA) NEGATIVE Urine Ketones NEGATIVE Urine Occult Blood MODERATE H Urine Nitrite NEGATIVE Urine Bilirubin NEGATIVE Urine Urobilinogen 0.2 (NORMAL) Ur Leukocyte Esterase SMALL H Urine RBC 6-10 H Urine WBC 11-25 H Ur Squamous Epith Cells MANY Squamous H Urine Bacteria Rare Ur Microscopic Review INDICATED Urine Culture Comments NOT INDICATED Urine HCG, Qual NEGATIVE Blood Type O POSITIVE Antibody Screen NEGATIVE Crossmatch IS Only See Detail PD MEDICAL DECISION MAKING - ED course Complexity details: reviewed old records, reviewed results, considered differential (Has significant dysfunctional uterine bleeding. She has seen a eyewear manufacturing supervisor specialist at with appointment or scheduled for surgery October 15 for endometrial ablation for fibroids. She had not wanted to have a hysterectomy. She continues with enough blood loss to cause symptomatic anemia.), d/w patient - Sepsis Event Vital Signs: Vital Signs - 24 hr 08/03/18 08/03/18 14:36 18:33 Temperature 36.4 C L 36.5 C Heart Rate 69 61 Respiratory 16 18 Rate Blood Pressure 114/72 103/65 O2 Saturation 100 Oxygen O2 Source Room air Departure - Departure Clinical Impression: Dysfunctional uterine bleeding, Acute on chronic blood loss anemia Dyspnea Qualifiers: Dyspnea type: shortness of breath Qualified Code(s): R06.02 - Shortness of breath; R06.00 - Dyspnea, unspecified; R06.01 - Orthopnea Condition: Stable Record reviewed to determine appropriate education?: Yes Instructions: ED Bleed Irregular Vaginal Comments: Continue usual medications including the iron supplements. Drink lots of fluids. Follow-up with your primary care if persistent symptoms. Follow-up with gynecology as planned.
[2018-08-03 17:13] LABS: BILIRUBIN,URINE NEGATIVE (NEGATIVE); GLUCOSE, URINE (UA) NEGATIVE (NEGATIVE); KETONES,URINE (UA) NEGATIVE (NEGATIVE); LEUKOCYTE ESTERASE, URINE SMALL (NEGATIVE); NITRITE,URINE NEGATIVE (NEGATIVE); OCCULT BLOOD,URINE MODERATE (NEGATIVE); PH,URINE 6.5 PH (5.0-7.5); PROTEIN,URINE NEGATIVE (NEGATIVE); UROBILINOGEN,URINE 0.2 (NORMAL) E.U./dL (NORMAL)
[2018-08-03 17:23] LABS: CLARITY,URINE CLEAR (CLEAR); HCG UR QUAL NEGATIVE
[2018-08-03 17:28] LABS: BACTERIA,URINE Rare /HPF (None Seen); SQUAMOUS EPITHELIAL CELL,UR MANY Squamous (<= Few)
[2018-08-03] MEDS ORDERED: ACETAMINOPHEN 1,000 MG/100 ML 100 ML IV STA (18:37)
[2018-08-03] MEDS ORDERED: diphenhydrAMINE INJ 50 MG/ML VIAL IVP STA (18:37)
[2018-08-03 20:39] VITALS: BP 110/75
== END 2018-08-03 20:47 | disposition home or self-care (01) ==
LOC: ED 14:28
DX: N93.8 Other specified abnormal uterine and vaginal bleeding (principal); D50.0 Iron deficiency anemia secondary to blood loss (chronic); D64.9 Anemia, unspecified; R06.02 Shortness of breath; R06.00 Dyspnea, unspecified; R06.01 Orthopnea
CPT/HCPCS: 36415; 80053; 81001; 81025; 83690; 85025; 85610; 86850; 86900; 86901; 86920; 96374; 96375; 99283; J0131; J1200; P9016; 81003; 87086

== ENCOUNTER 2018-10-04 14:28 | Emergency (ER) | payer SELFPAY ==
[2018-10-04 15:15] LABS: BASOPHILS % (AUTO) 1.1 %; LYMPHOCYTES # (AUTO) 0.8 10^3/uL (1.5-3.5); LYMPHOCYTES % (AUTO) 31.5 %; MEAN CORPUSCULAR HEMOGLOBIN 21.5 pg (27.0-31.0); MEAN CORPUSCULAR HGB CONC 30.5 g/dL (32.0-36.0); MEAN CORPUSCULAR VOLUME 70.5 fL (81.0-99.0); MEAN PLATELET VOLUME 7.5 fL (7.9-10.8); MONOCYTES # (AUTO) 0.3 10^3/uL (0.0-1.0); MONOCYTES % (AUTO) 11.8 %; NEUTROPHILS # (AUTO) 1.4 10^3/uL (1.5-6.6); NEUTROPHILS % (AUTO) 54.6 %; PLT - PLATELET COUNT 345 10^3/uL (130-450); RED BLOOD COUNT 3.71 10^6/uL (4.20-5.40); RED CELL DISTRIBUTION WIDTH 19.2 % (12.0-15.0); WHITE BLOOD COUNT 2.6 x10^3/uL (4.8-10.8)
[2018-10-04 15:23] LABS: ALBUMIN/GLOBULIN RATIO 1.4 (1.0-2.2); BILIRUBIN,TOTAL 0.4 mg/dL (0.2-1.0); CALCIUM 8.7 mg/dL (8.5-10.3); CREATININE 0.5 mg/dL (0.4-1.0); TOTAL PROTEIN 6.9 g/dL (6.7-8.2)
[2018-10-04 18:05] LABS: BILIRUBIN,URINE NEGATIVE (NEGATIVE); GLUCOSE, URINE (UA) NEGATIVE (NEGATIVE); KETONES,URINE (UA) NEGATIVE (NEGATIVE); LEUKOCYTE ESTERASE, URINE NEGATIVE (NEGATIVE); NITRITE,URINE NEGATIVE (NEGATIVE); OCCULT BLOOD,URINE TRACE-LYSE (NEGATIVE); PROTEIN,URINE NEGATIVE (NEGATIVE); UROBILINOGEN,URINE 0.2 (NORMAL) E.U./dL (NORMAL)
[2018-10-04 18:08] LABS: CLARITY,URINE CLEAR (CLEAR)
--- NOTE | 2018-10-04 18:09 | ED Physician Documentation ---
PD HPI SYNCOPE - Stated complaint Stated Complaint: TINGLING/NUMBNESS - Chief complaint Chief Complaint: General - History obtained from History obtained from: Patient - History of Present Illness Timing - onset: Today (patient is feeling weak and tired and feeling like she is going to faint when standing. Feels this way with low blood count. Denies other symptoms such as head cold, cough, diarrhea.) Preceding symptoms: Light headed. No: Headache Contributing factors: Just stood up Similar symptoms before: Diagnosis (persistent vaginal bleeding with anemia.) Review of Systems Constitutional: denies: Fever, Chills Nose: denies: Rhinorrhea / runny nose, Congestion Throat: denies: Sore throat Respiratory: denies: Cough GI: denies: Abdominal Pain, Nausea, Vomiting : reports: Vaginal bleeding (for a long time now, from fibroids or such, and trying to get endometrial surgery to stop it, but specialist in [place] been hard to see. 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 : None HEENT: None Psych: None Musculoskeletal: None Derm: None - Past Surgical History Past Surgical History: Yes /RETAIL MARKETING SPECIALIST: Dilation and currettage - Present Medications Home Medications: Ambulatory Orders Medication Instructions Recorded Confirmed Ferrous Sulfate [Iron] 325 mg PO DAILY 12/18/16 01/03/18 Pnv95/Iron Fum/Folic Acid 1 - 3 tab PO DAILY 12/18/16 01/03/18 [ [place]] Cyanocobalamin (Vitamin B-12) 1,000 mcg PO DAILY 12/04/17 01/03/18 [Vitamin B-12] Melatonin 3 mg PO DAILY #30 tablet 07/11/18 - Allergies Allergies/Adverse Reactions: Allergies Allergy/AdvReac Type Severity Reaction Status Date / Time codeine [Codeine] AdvReac Intermediate itching/abd Verified 10/04/18 14:45 pain - Social History Does the pt smoke?: No Smoking Status: Never smoker Does the pt drink ETOH?: No Does the pt have substance abuse?: No - Immunizations Immunizations are current?: Yes Immunizations: No immun - POLST Patient has POLST: No PD ED PE NORMAL - Vitals Vital signs reviewed: Yes - General General: Alert and oriented X 3, Well developed/nourished - HEENT HEENT: Pharynx benign - Neck Neck: Supple, no meningeal sign, No adenopathy - Cardiac Cardiac: RRR, No murmur - Respiratory Respiratory: Clear bilaterally - Abdomen Abdomen: Normal bowel sounds, Soft, Non tender - Female Female : Deferred - Rectal Rectal: Deferred - Back Back: No CVA TTP - Derm Derm: No: Normal color (pale) - Neuro Neuro: Alert and oriented X 3, No motor deficit, Normal speech Results - Vitals Vitals: Oxygen O2 Source Room air - Labs Labs: Laboratory Tests 10/04/18 10/04/18 10/04/18 15:00 15:00 15:00 WBC 2.6 L RBC 3.71 L Hgb 8.0 L Hct 26.1 L MCV 70.5 L MCH 21.5 L MCHC 30.5 L RDW 19.2 H Plt Count 345 MPV 7.5 L Neut # (Auto) 1.4 L Lymph # (Auto) 0.[address] [place] # (Auto) 0.3 Eos # (Auto) 0.0 Baso # (Auto) 0.0 Absolute Nucleated RBC 0.01 Nucleated RBC % 0.3 Sodium 136 Potassium 3.8 Chloride 105 Carbon Dioxide 25 Anion Gap 6.0 BUN 8 Creatinine 0.5 Estimated GFR (MDRD) 144 Glucose 105 H Calcium 8.7 Total Bilirubin 0.4 AST 27 ALT 32 Alkaline Phosphatase 63 Total Protein 6.9 Albumin 4.0 Globulin 2.9 Albumin/Globulin Ratio 1.4 Lipase 33 Urine Color Urine Clarity Urine pH Ur Specific [place] Urine Protein Urine Glucose (UA) Urine Ketones Urine Occult Blood Urine Nitrite Urine Bilirubin Urine Urobilinogen Ur Leukocyte Esterase Ur Microscopic Review Urine Culture Comments Blood Type O POSITIVE Antibody Screen NEGATIVE Crossmatch IS Only See Detail 10/04/18 17:55 WBC RBC Hgb Hct MCV MCH MCHC RDW Plt Count MPV Neut # (Auto) Lymph # (Auto) [place] # (Auto) Eos # (Auto) Baso # (Auto) Absolute Nucleated RBC Nucleated RBC % Sodium Potassium Chloride Carbon Dioxide Anion Gap BUN Creatinine Estimated GFR (MDRD) Glucose Calcium Total Bilirubin AST ALT Alkaline Phosphatase Total Protein Albumin Globulin Albumin/Globulin Ratio Lipase Urine Color YELLOW Urine Clarity CLEAR Urine pH 6.0 Ur Specific [place] >=1.030 H Urine Protein NEGATIVE Urine Glucose (UA) NEGATIVE Urine Ketones NEGATIVE Urine Occult Blood TRACE-LYSE Urine Nitrite NEGATIVE Urine Bilirubin NEGATIVE Urine Urobilinogen 0.2 (NORMAL) Ur Leukocyte Esterase NEGATIVE Ur Microscopic Review NOT INDICATED Urine Culture Comments NOT INDICATED Blood Type Antibody Screen Crossmatch IS Only PD MEDICAL DECISION MAKING - ED course Complexity details: considered differential (she is not below 7 Hgb, but is having weakness and symptoms of low count, so gave unit of blood. She is having problems with getting approval for the endometrial surgery for the fibroids to stop the bleeding (she does not want hysterectomy). She says she needs to have PCP order MRI pelvis and then can schedule the surgery. Appt next week with PCP. ), d/w patient Departure - Departure Disposition: 01 Home, Self Care Clinical Impression: Weakness generalized, Dysfunctional uterine bleeding, Symptomatic anemia Condition: Stable Record reviewed to determine appropriate education?: Yes Instructions: ED Bleed Irregular Vaginal Follow-Up: Jeff Mejía PA-C [Primary Care Provider] - Comments: Drink lots of fluids. Continue usual medications. Follow-up with your primary care to obtain the MRI needed in order to get your uterine surgery to finally get the bleeding to stop. Discharge Date/Time: 10/04/18 23:21
[2018-10-04] MEDS ORDERED: ACETAMINOPHEN 325 MG TABLET PO STA (19:55)
[2018-10-04] MEDS ORDERED: diphenhydrAMINE INJ 50 MG/ML VIAL IVP STA (19:55)
[2018-10-04 23:03] VITALS: BP 108/78
== END 2018-10-04 23:21 | disposition home or self-care (01) ==
LOC: ED 14:28
DX: R53.1 Weakness (principal); N93.8 Other specified abnormal uterine and vaginal bleeding; D64.9 Anemia, unspecified
CPT/HCPCS: 36415; 80053; 81003; 83690; 85025; 86850; 86900; 86901; 86920; 93005; 96374; 99283; A9270; J1200; P9016; 81001; 87086

== ENCOUNTER 2018-11-01 14:42 | Outpatient (CLI) | payer SELFPAY ==
[2018-11-01 19:42] LABS: ABNORMAL LYMPHS % (MANUAL) 0 %; BAND NEUTROPHILS % (MANUAL) 0 %
[2018-11-01 19:52] LABS: MEAN CORPUSCULAR HEMOGLOBIN 20.8 pg (27.0-31.0)
[2018-11-01 19:59] LABS: BASOPHILS % (AUTO) 0.8 %; EOSINOPHILS % (AUTO) 1.5 %; HGB - HEMOGLOBIN 7.1 g/dL (12.0-16.0); LYMPHOCYTES % (AUTO) 36.1 %; MEAN CORPUSCULAR VOLUME 71.7 fL (81.0-99.0); MEAN PLATELET VOLUME 9.1 fL (7.9-10.8); NEUTROPHILS % (AUTO) 51.6 %; PLT - PLATELET COUNT 355 10^3/uL (130-450); RED BLOOD COUNT 3.41 10^6/uL (4.20-5.40); RED CELL DISTRIBUTION WIDTH 19.7 % (12.0-15.0)
[2018-11-01 21:29] LABS: BASOPHILS % (MANUAL) 1 %; LYMPHOCYTES % (MANUAL) 31 %; NEUTROPHILS % (MANUAL) 53 %
[2018-11-01 21:35] LABS: DIFFERENTIAL COMMENT MANUAL DIFFERENTIAL; PLATELET ESTIMATE, MANUAL NORMAL (130-450,000) (NORMAL); PLATELET MORPHOLOGY NORMAL APPEARANCE (NORMAL)
[2018-11-01 21:36] LABS: LYMPHOCYTES # (MANUAL) 1.1 10^3/uL (1.5-3.5); MONOCYTES # (MANUAL) 0.3 10^3/uL (0.0-1.0); NEUTROPHILS # (MANUAL) 1.6 10^3/uL (1.5-6.6)
[2018-11-01 21:39] LABS: WHITE BLOOD COUNT 3.1 x10^3/uL (4.8-10.8)
== END 2018-11-01 23:59 | disposition home or self-care (01) ==
LOC: LAB.N 14:42
PROVIDERS: ATTEND Physician Assistant Medical
DX: D72.810 Lymphocytopenia (principal); N93.8 Other specified abnormal uterine and vaginal bleeding; D50.0 Iron deficiency anemia secondary to blood loss (chronic); D53.9 Nutritional anemia, unspecified
CPT/HCPCS: 36415; 85025

== ENCOUNTER 2018-11-01 15:56 | Emergency (ER) | payer SELFPAY ==
--- NOTE | 2018-11-01 18:08 | ED Physician Documentation ---
PD HPI FEMALE - Stated complaint Stated Complaint: DIZZY/STOMACH & HEAD ACHE - Chief complaint Chief Complaint: Cardiac - History obtained from History obtained from: Patient - History of Present Illness Timing - onset: How many days ago (few) Timing - duration: Days Timing - details: Gradual onset, Still present Associated symptoms: Abdominal pain, Vaginal bleeding. No: Fever, Vaginal discharge Contributing factors: No: Similar symptoms before: Diagnosis (anemia and symptoms from that.) Recently seen: Clinic, Emergency Dept (she has had recurrent transfusions due to vaginal bleeding. 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 : None HEENT: None Psych: None Musculoskeletal: None Derm: None - Past Surgical History Past Surgical History: Yes /HALF SECTION IRONER: Dilation and currettage - Present Medications Home Medications: Ambulatory Orders Medication Instructions Recorded Confirmed Ferrous Sulfate [Iron] 325 mg PO DAILY 12/18/16 01/03/18 Pnv95/Iron Fum/Folic Acid 1 - 3 tab PO DAILY 12/18/16 01/03/18 [ Caplet] Cyanocobalamin (Vitamin B-12) 1,000 mcg PO DAILY 12/04/17 01/03/18 [Vitamin B-12] Melatonin 3 mg PO DAILY #30 tablet 07/11/18 Famotidine 20 mg PO DAILY #30 tablet 11/01/18 Ondansetron Odt [Zofran] 4 mg TL Q6H PRN #10 tablet 11/01/18 Sucralfate [Carafate] 1 gm PO ACHS #20 tablet 11/01/18 - Allergies Allergies/Adverse Reactions: Allergies Allergy/AdvReac Type Severity Reaction Status Date / Time codeine [Codeine] AdvReac Intermediate itching/abd Verified 11/01/18 16:20 pain - Social History Does the pt smoke?: No Smoking Status: Never smoker Does the pt drink ETOH?: No Does the pt have substance abuse?: No - Immunizations Immunizations are current?: Yes Immunizations: No immun - POLST Patient has POLST: No PD ED PE NORMAL - Vitals Vital signs reviewed: Yes - General General: Alert and oriented X 3, No acute distress, Well developed/nourished - HEENT HEENT: Pharynx benign - Neck Neck: Supple, no meningeal sign, No adenopathy - Cardiac Cardiac: RRR, No murmur - Respiratory Respiratory: Clear bilaterally - Abdomen Abdomen: Normal bowel sounds, Soft, Non distended, No organomegaly, Other (tender without guarding RUQ area. ) - Back Back: No CVA TTP - Extremities Extremities: No deformity, Normal ROM s pain, No edema, No calf tenderness / cord - Neuro Neuro: Alert and oriented X 3, No motor deficit, Normal speech Motor: Abnormal Extension Results - Vitals Vitals: Oxygen O2 Source Room air - Labs Labs: Laboratory Tests 11/01/18 11/01/18 11/01/18 18:30 18:30 18:30 WBC 2.9 L RBC 3.46 L Hgb 7.2 L Hct 24.6 L MCV 71.3 L MCH 20.7 L MCHC 29.1 L RDW 19.5 H Plt Count 361 MPV 8.3 Sodium 135 Potassium 3.6 Chloride 108 Carbon Dioxide 25 Anion Gap 2.0 L BUN 6 Creatinine 0.5 Estimated GFR (MDRD) 144 Glucose 113 H Calcium 8.5 Total Bilirubin 0.4 AST 15 ALT 18 Alkaline Phosphatase 54 Total Protein 6.3 L Albumin 3.7 Globulin 2.6 Albumin/Globulin Ratio 1.4 Lipase 75 H Blood Type O POSITIVE Antibody Screen NEGATIVE Crossmatch IS Only 11/01/18 18:30 WBC RBC Hgb Hct MCV MCH MCHC RDW Plt Count MPV Sodium Potassium Chloride Carbon Dioxide Anion Gap BUN Creatinine Estimated GFR (MDRD) Glucose Calcium Total Bilirubin AST ALT Alkaline Phosphatase Total Protein Albumin Globulin Albumin/Globulin Ratio Lipase Blood Type Cancelled Antibody Screen Cancelled Crossmatch IS Only See Detail PD MEDICAL DECISION MAKING - ED course Complexity details: reviewed results, considered differential (having general weakness and nauses c/w prior anemia episodes. Gets better wiht blood/volume replacement. ), d/w patient Departure - Departure Disposition: 01 Home, Self Care Clinical Impression: Symptomatic anemia, Right upper quadrant abdominal pain, Nausea Gastritis Qualifiers: Gastritis type: unspecified gastritis Chronicity: acute Gastritis bleeding: without bleeding Qualified Code(s): K29.00 - Acute gastritis without bleeding Condition: Stable Record reviewed to determine appropriate education?: Yes Instructions: ED Gastritis Follow-Up: Jeff Mejía PA-C [Primary Care Provider] - Prescriptions: Famotidine 20 mg PO DAILY #30 tablet Ondansetron Odt [Zofran] 4 mg TL Q6H PRN #10 tablet PRN Reason: Nausea / Vomiting Sucralfate [Carafate] 1 gm PO ACHS #20 tablet Comments: Continue current medications. For the upper abdominal pain, try famotidine acid reducing medicine along with Carafate to coat the stomach and initial intestine. I think this is the cause of the pain you are having. Your ultrasound and blood test did not show any signs of problems with the pancreas gallbladder or liver. Drink lots of fluids. Keep working on getting the pelvic MRI as staging for your uterine surgery. Start the oral contraceptives as directed by the airport sales agent. Recheck if worse symptoms again. Discharge Date/Time: 11/01/18 23:32
[2018-11-01 18:40] LABS: HGB - HEMOGLOBIN 7.2 g/dL (12.0-16.0); MEAN CORPUSCULAR HEMOGLOBIN 20.7 pg (27.0-31.0); MEAN CORPUSCULAR HGB CONC 29.1 g/dL (32.0-36.0); MEAN CORPUSCULAR VOLUME 71.3 fL (81.0-99.0); MEAN PLATELET VOLUME 8.3 fL (7.9-10.8); RED BLOOD COUNT 3.46 10^6/uL (4.20-5.40); RED CELL DISTRIBUTION WIDTH 19.5 % (12.0-15.0); WHITE BLOOD COUNT 2.9 x10^3/uL (4.8-10.8)
[2018-11-01 18:59] LABS: ALBUMIN 3.7 g/dL (3.2-5.5); ALBUMIN/GLOBULIN RATIO 1.4 (1.0-2.2); BILIRUBIN,TOTAL 0.4 mg/dL (0.2-1.0); CALCIUM 8.5 mg/dL (8.5-10.3); CREATININE 0.5 mg/dL (0.4-1.0); TOTAL PROTEIN 6.3 g/dL (6.7-8.2)
[2018-11-01] MEDS ORDERED: ONDANSETRON 4 MG/2 ML VIAL IVP STA (19:48)
[2018-11-01] MEDS ORDERED: SODIUM CHLORIDE 0.9% 1,000 ML IV ONE (19:48)
[2018-11-01] MEDS ORDERED: ACETAMINOPHEN 325 MG TABLET PO STA (19:49)
[2018-11-01] MEDS ORDERED: KETOROLAC 15 MG/ML VIAL IVP STA (19:49)
--- NOTE | 2018-11-01 22:12 | Ultrasound Report ---
Reason: RUQ pain and vomiting for 3 days Procedure Date: 11/01/2018 Accession Number: [id number] / [id number] Procedure: US - Abdomen Limited CPT Code: FULL RESULT: EXAM: ABDOMEN ULTRASOUND LIMITED, RUQ EXAM DATE: 11/01/2018 09:21 PM. CLINICAL HISTORY: RUQ pain and vomiting for 3 days. COMPARISON: None. TECHNIQUE: Real-time scanning was performed with static images obtained. FINDINGS: Liver: Submitted images of liver demonstrate no focal lesions. Main portal vein flow: Hepatopetal. Gallbladder: No stones, wall thickening, or sonographic Diggs's sign. Biliary System: CBD measures 3 mm. No intrahepatic or extrahepatic ductal dilatation. Other: Pancreas not well seen. Right kidney demonstrates no hydronephrosis. IMPRESSION: Negative right upper quadrant ultrasound. RADIA
[2018-11-01] MEDS ORDERED: MAG HYDROX/AL HYDROX/SIMETH 30 ML UDC PO STA (22:31)
[2018-11-01] MEDS ORDERED: LIDOCAINE VISCOUS 2% 15 ML UDC MM STA (22:31)
[2018-11-01] MEDS ORDERED: ONDANSETRON ODT 4 MG Prepack 2 TL PRN (22:31)
[2018-11-01] MEDS ORDERED: FAMOTIDINE 20 MG TABLET PO STA (22:31)
[2018-11-01] MEDS ORDERED: DOCUSATE SODIUM 100 MG CAPSULE PO STA (22:48)
[2018-11-01 23:25] VITALS: BP 100/59
== END 2018-11-01 23:32 | disposition home or self-care (01) ==
LOC: ED 15:56
DX: D64.9 Anemia, unspecified (principal); R10.11 Right upper quadrant pain; R11.0 Nausea; K29.00 Acute gastritis without bleeding
CPT/HCPCS: 36415; 76705; 80053; 83690; 85027; 86850; 86900; 86901; 86920; 96361; 96374; 96375; 99283; A9270; P9016; 85610; 85730

== ENCOUNTER 2018-11-04 10:27 | Outpatient (CLI) | payer SELFPAY | END 2018-11-04 23:59 | disposition home or self-care (01) | LOC: LAB.N 10:27 | PROVIDERS: ATTEND Physician Assistant Medical | DX: R71.8 Other abnormality of red blood cells (principal); D72.810 Lymphocytopenia; D53.9 Nutritional anemia, unspecified | CPT/HCPCS: 36415; 81599; 82728; 83021; 85014; 85018 ==

== ENCOUNTER 2018-11-08 14:42 | Outpatient (CLI) | payer SELFPAY ==
--- NOTE | 2018-11-10 09:51 | MRI Report ---
Reason: FIBROID Procedure Date: 11/08/2018 Accession Number: [id number] / [id number] Procedure: MRI - Pelvis W/O CPT Code: FULL RESULT: EXAM: MR PELVIS WITHOUT CONTRAST EXAM DATE: 11/08/2018 03:43 PM. CLINICAL HISTORY: 33-year-old female. FIBROID. Pelvic pain. COMPARISON: COMPLETE 07/14/2018 1:08 PM ABDOMEN/PELVIS W/ 06/06/2014 7:02 PM. TECHNIQUE: Multiplanar breath-hold T1, T2 weighted images obtained through the pelvis on an MR scanner. Images obtained without contrast. FINDINGS: Reproductive Organs: Uterus: The uterus is anteverted and measures 18 x 10 x 11 cm with volume 990 cc. The endometrium is distorted by fibroids. There is a small amount of trapped fluid in the endometrial cavity between fibroids. Excluding the fluid, the endometrial thickness is approximately 8 mm in total. There are fibroids: 2.6 x 1.7 x 3.4 cm left fundal subserosal. 7.3 x 8.4 x 7.3 cm posterior fundal intramural/submucosal with the fundal endometrium splayed over his anterior surface. 6.8 x 7.3 x 7.7 cm right posterior body/lower uterine segment intramural/submucosal with the endometrium splayed over the left anterior aspect. 4.8 x 1.9 x 5.0 cm right posterior lower uterine segment intramural/subserosal. Cervix: Multiple nabothian cysts measuring up to 1.2 cm. Right Ovary: The right ovary measures 2.7 x 2.7 x 2.3 cm with volume 8.4 cc. The right ovary appears normal with small follicles measuring up to 1.4 cm. Left Ovary: The left ovary measures approximately 4.9 x 2.1 x 2.9 cm with volume 15 cc. There is a 2.8 cm dominant simple left ovarian follicle in addition to subcentimeter follicles. Vagina: Unremarkable. Labia: 4.0 x 1.8 x 2.8 cm right labial/minor vestibular [place]'s gland cyst. Bowel: The visualized portions of the small bowel, colon, and rectum appear normal. Bladder: The urinary bladder appears normal. Other: None. IMPRESSION: 1. Markedly enlarged 990 cc fibroid uterus as described above. 2. 4.0 x 1.8 x 2.8 cm right [place]'s gland cyst. RADIA
== END 2018-11-08 14:43 | disposition home or self-care (01) ==
LOC: DI 14:42
PROVIDERS: ATTEND Obstetrics & Gynecology
DX: D25.1 Intramural leiomyoma of uterus (principal); D25.0 Submucous leiomyoma of uterus; D25.2 Subserosal leiomyoma of uterus; N36.8 Other specified disorders of urethra; N88.8 Other specified noninflammatory disorders of cervix uteri
CPT/HCPCS: 72195

== ENCOUNTER 2018-11-08 15:40 | Emergency (ER) | payer SELFPAY ==
[2018-11-08 16:01] VITALS: BP 111/62
--- NOTE | 2018-11-08 17:16 | XRAY Report ---
Reason: pain rt elbow Procedure Date: 11/08/2018 Accession Number: [id number] / [id number] Procedure: XR - Elbow 3 View RT CPT Code: FULL RESULT: EXAM: RIGHT ELBOW RADIOGRAPHY EXAM DATE: 11/08/2018 04:57 PM. CLINICAL HISTORY: Pain rt elbow. COMPARISON: None. TECHNIQUE: 3 views. FINDINGS: Bones: No fracture or destructive bony abnormality. Joints: Normal. No effusion. No subluxation. Soft Tissues: Normal. No soft tissue swelling. IMPRESSION: Negative right elbow. RADIA
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
[2018-11-08] MEDS: HYDROcod/ACETAM 7.5 MG/325 MG TABLET PO PRN (18:59)
[2018-11-08] MEDS: METHOCARBAMOL 500 MG TABLET PO STA (18:59)
== END 2018-11-08 18:59 | disposition home or self-care (01) ==
LOC: ED 15:40
DX: S50.01XA Contusion of right elbow, initial encounter (principal); W03.XXXA Other fall on same level due to collision with another person, initial encounter; Y92.009 Unspecified place in unspecified non-institutional (private) residence as the place of occurrence of the external cause
CPT/HCPCS: 99283

== ENCOUNTER 2018-12-01 15:14 | Emergency (ER) | payer SELFPAY ==
[2018-12-01 17:07] LABS: BASOPHILS % (AUTO) 1.4 %; EOSINOPHILS % (AUTO) 1.3 %; HGB - HEMOGLOBIN 7.7 g/dL (12.0-16.0); LYMPHOCYTES # (AUTO) 1.1 10^3/uL (1.5-3.5); LYMPHOCYTES % (AUTO) 32.4 %; MEAN CORPUSCULAR HEMOGLOBIN 20.3 pg (27.0-31.0); MEAN CORPUSCULAR HGB CONC 29.3 g/dL (32.0-36.0); MEAN CORPUSCULAR VOLUME 69.3 fL (81.0-99.0); MEAN PLATELET VOLUME 7.4 fL (7.9-10.8); MONOCYTES # (AUTO) 0.2 10^3/uL (0.0-1.0); NEUTROPHILS # (AUTO) 1.9 10^3/uL (1.5-6.6); NEUTROPHILS % (AUTO) 57.9 %; PLT - PLATELET COUNT 390 10^3/uL (130-450); RED BLOOD COUNT 3.79 10^6/uL (4.20-5.40); RED CELL DISTRIBUTION WIDTH 21.3 % (12.0-15.0); WHITE BLOOD COUNT 3.3 x10^3/uL (4.8-10.8)
[2018-12-01 17:18] LABS: ALBUMIN 3.9 g/dL (3.2-5.5); ALBUMIN/GLOBULIN RATIO 1.4 (1.0-2.2); BILIRUBIN,TOTAL 0.4 mg/dL (0.2-1.0); CALCIUM 8.9 mg/dL (8.5-10.3); CREATININE 0.5 mg/dL (0.4-1.0); TOTAL PROTEIN 6.6 g/dL (6.7-8.2)
[2018-12-01 17:19] LABS: PLATELET ESTIMATE, MANUAL NORMAL (130-450,000) (NORMAL); PLATELET MORPHOLOGY NORMAL APPEARANCE (NORMAL)
--- NOTE | 2018-12-01 17:25 | ED Physician Documentation ---
PD HPI FEMALE - Stated complaint Stated Complaint: WEAK,DROWSY - Chief complaint Chief Complaint: General - History obtained from History obtained from: Patient - History of Present Illness Timing - onset: How many days ago (few) Timing - duration: Days Timing - details: Gradual onset, Still present Associated symptoms: Vaginal bleeding, Other (general malaise and weakness, lightheaded. having vaginal bleeding for few days and is tapering today. History of DUB from fibroids and is in long process of getting endometrial surgery for it.). No: Fever, Dysuria, Urinary frequency Similar symptoms before: Diagnosis (DUB from fibroids) Recently seen: Emergency Dept (Has had similar symptoms with transfusions many times. Seen in office by PMD recently and has order to have Thallasemia screen blood testing done. 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 denies: Fever, Myalgias Nose: denies: Rhinorrhea / runny nose, Congestion Throat: denies: Sore throat Respiratory: reports: Dyspnea (on exertion). denies: Cough GI: reports: Nausea. denies: Vomiting, Constipation, Diarrhea : reports: Vaginal bleeding. denies: Dysuria, Frequency Neurologic: reports: Generalized weakness. 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 HEENT: None Psych: None Musculoskeletal: None Derm: None - Past Surgical History Past Surgical History: Yes /DRONE SOFTWARE DEVELOPMENT ENGINEER: Dilation and currettage - Present Medications Home Medications: Ambulatory Orders Medication Instructions Recorded Confirmed RX: Pnv95/Iron Fum/Folic Acid 1 - 3 tab PO DAILY 12/18/16 01/03/18 [ Cap[place]] Cyanocobalamin (Vitamin B-12) 1,000 mcg PO DAILY 12/04/17 01/03/18 [Vitamin B-12] Sucralfate [Carafate] 1 gm PO ACHS #20 tablet 11/01/18 - Allergies Allergies/Adverse Reactions: Allergies Allergy/AdvReac Type Severity Reaction Status Date / Time hydrocodone Allergy Rash Verified 12/01/18 15:23 codeine [Codeine] AdvReac Intermediate itching/abd Verified 11/08/18 16:00 pain - Social History Does the pt smoke?: No Smoking Status: Never smoker Does the pt drink ETOH?: No Does the pt have substance abuse?: No - Immunizations Immunizations are current?: Yes Immunizations: No immun - POLST Patient has POLST: No PD ED PE NORMAL - Vitals Vital signs reviewed: Yes - General General: Alert and oriented X 3, No acute distress, Well developed/nourished - Neck Neck: Supple, no meningeal sign, No adenopathy - Cardiac Cardiac: RRR, No murmur - Respiratory Respiratory: Clear bilaterally - Abdomen Abdomen: Soft, Non tender, Non distended - Female Female : Deferred - Derm Derm: Warm and dry. No: Normal color (pale) - Extremities Extremities: No tenderness to palpate, Normal ROM s pain, No edema, No calf tenderness / cord - Neuro Neuro: Alert and oriented X 3, No motor deficit, Normal speech Results - Vitals Vitals: Vital Signs - 24 hr 12/01/18 12/01/18 12/01/18 15:16 18:56 20:47 Temperature 36.3 C L 36.7 C Heart Rate 64 61 63 Respiratory 16 16 17 Rate Blood Pressure 120/48 L 117/82 H 117/85 H O2 Saturation 100 99 12/01/18 12/01/18 12/01/18 20:56 21:09 21:41 Temperature 36.8 C 36.8 C Heart Rate 65 64 61 Respiratory 16 16 16 Rate Blood Pressure 113/77 112/59 L 113/65 O2 Saturation 100 12/01/18 12/01/18 12/01/18 22:14 22:35 23:05 Temperature 36.9 C 37.1 C Heart Rate 61 57 L 59 L Respiratory 16 16 18 Rate Blood Pressure 115/69 115/69 108/69 O2 Saturation 100 12/02/18 00:00 Temperature 36.8 C Heart Rate 62 Respiratory 18 Rate Blood Pressure 108/69 O2 Saturation 100 Oxygen O2 Source Room air - Labs Labs: Microbiology 12/01/18 17:55 Urine Culture - Preliminary Urine,Random CULTURE IN PROGRESS. RESULTS TO FOLLOW. Laboratory Tests 12/01/18 12/01/18 12/01/18 16:57 16:57 16:57 WBC 3.3 L RBC 3.79 L Hgb 7.7 L Hct 26.2 L MCV 69.3 L MCH 20.3 L MCHC 29.3 L RDW 21.3 H Plt Count 390 MPV 7.4 L Neut # (Auto) 1.9 Lymph # (Auto) 1.1 L [place] # (Auto) 0.2 Eos # (Auto) 0.0 Baso # (Auto) 0.0 Absolute Nucleated RBC 0.01 Nucleated RBC % 0.2 Manual Slide Review Indicated WBC Morphology NORMAL APPEARANCE Platelet Estimate NORMAL (130-450,000) Platelet Morphology NORMAL APPEARANCE RBC Morph Micro Appear 2+ MICROCYTOSIS Sodium 134 L Potassium 3.4 L Chloride 102 Carbon Dioxide 24 Anion Gap 8.0 BUN 10 Creatinine 0.5 Estimated GFR (MDRD) 144 Glucose 128 H Calcium 8.9 Magnesium Total Bilirubin 0.4 AST 15 ALT 13 Alkaline Phosphatase 52 Total Protein 6.6 L Albumin 3.9 Globulin 2.7 Albumin/Globulin Ratio 1.4 Lipase 30 TSH 1.09 Cortisol Urine Color Urine Clarity Urine pH Ur Specific [place] Urine Protein Urine Glucose (UA) Urine Ketones Urine Occult Blood Urine Nitrite Urine Bilirubin Urine Urobilinogen Ur Leukocyte Esterase Urine RBC Urine WBC Ur Epithelial Cells Ur Squamous Epith Cells Urine Bacteria Urine Mucus Ur Microscopic Review Urine Culture Comments Urine HCG, Qual Blood Type Antibody Screen Crossmatch IS Only 12/01/18 12/01/18 12/01/18 16:57 16:57 17:55 WBC RBC Hgb Hct MCV MCH MCHC RDW Plt Count MPV Neut # (Auto) Lymph # (Auto) [place] # (Auto) Eos # (Auto) Baso # (Auto) Absolute Nucleated RBC Nucleated RBC % Manual Slide Review WBC Morphology Platelet Estimate Platelet Morphology RBC Morph Micro Appear Sodium Potassium Chloride Carbon Dioxide Anion Gap BUN Creatinine Estimated GFR (MDRD) Glucose Calcium Magnesium 2.2 Total Bilirubin AST ALT Alkaline Phosphatase Total Protein Albumin Globulin Albumin/Globulin Ratio Lipase TSH Cortisol 9.1 Urine Color YELLOW Urine Clarity HAZY Urine pH 6.0 Ur Specific [place] >=1.030 H Urine Protein 100 H Urine Glucose (UA) NEGATIVE Urine Ketones NEGATIVE Urine Occult Blood LARGE H Urine Nitrite NEGATIVE Urine Bilirubin NEGATIVE Urine Urobilinogen 0.2 (NORMAL) Ur Leukocyte Esterase NEGATIVE Urine RBC 11-25 H Urine WBC 6-10 H Ur Epithelial Cells RARE Renal Tubular Ur Squamous Epith Cells RARE Squamous Urine Bacteria None Seen Urine Mucus Few Strands Ur Microscopic Review INDICATED Urine Culture Comments INDICATED Urine HCG, Qual Blood Type Antibody Screen Crossmatch IS Only 12/01/18 12/01/18 12/01/18 17:55 18:53 23:35 WBC RBC Hgb 8.3 L Hct 27.0 L MCV MCH MCHC RDW Plt Count MPV Neut # (Auto) Lymph # (Auto) [place] # (Auto) Eos # (Auto) Baso # (Auto) Absolute Nucleated RBC Nucleated RBC % Manual Slide Review WBC Morphology Platelet Estimate Platelet Morphology RBC Morph Micro Appear Sodium Potassium Chloride Carbon Dioxide Anion Gap BUN Creatinine Estimated GFR (MDRD) Glucose Calcium Magnesium Total Bilirubin AST ALT Alkaline Phosphatase Total Protein Albumin Globulin Albumin/Globulin Ratio Lipase TSH Cortisol Urine Color Urine Clarity Urine pH Ur Specific [place] >=1.030 H Urine Protein Urine Glucose (UA) Urine Ketones Urine Occult Blood Urine Nitrite Urine Bilirubin Urine Urobilinogen Ur Leukocyte Esterase Urine RBC Urine WBC Ur Epithelial Cells Ur Squamous Epith Cells Urine Bacteria Urine Mucus Ur Microscopic Review Urine Culture Comments Urine HCG, Qual NEGATIVE Blood Type O POSITIVE Antibody Screen NEGATIVE Crossmatch IS Only See Detail PD MEDICAL DECISION MAKING - ED course Complexity details: reviewed old records, re-evaluated patient (feeling imrpoved with transfusion.), considered differential (history of anemia. Her Hgb today is 7.6, but she has symptoms with it of fatigue and lightheaded/dyspnea, so will give unit of blood. ), d/w patient Departure - Departure Disposition: Home, Self Care Clinical Impression: Generalized weakness, Symptomatic anemia, Dysfunctional uterine bleeding Condition: Stable Record reviewed to determine appropriate education?: Yes Follow-Up: Jeff Mejía PA-C [Primary Care Provider] - Comments: Usual medications. Drink lots of fluids. Follow-up with your primary care. Discharge Date/Time: 12/02/18 00:01
[2018-12-01 18:06] LABS: BILIRUBIN,URINE NEGATIVE (NEGATIVE); GLUCOSE, URINE (UA) NEGATIVE (NEGATIVE); KETONES,URINE (UA) NEGATIVE (NEGATIVE); LEUKOCYTE ESTERASE, URINE NEGATIVE (NEGATIVE); NITRITE,URINE NEGATIVE (NEGATIVE); OCCULT BLOOD,URINE LARGE (NEGATIVE); PROTEIN,URINE 100 mg/dL (NEGATIVE); UROBILINOGEN,URINE 0.2 (NORMAL) E.U./dL (NORMAL)
[2018-12-01 18:08] LABS: CLARITY,URINE HAZY (CLEAR)
[2018-12-01 18:09] LABS: HCG UR QUAL NEGATIVE
[2018-12-01 18:15] LABS: BACTERIA,URINE None Seen /HPF (None Seen); EPITHELIAL CELLS,UR RARE Renal Tubular /HPF (<= Few); MUCUS,URINE Few Strands; SQUAMOUS EPITHELIAL CELL,UR RARE Squamous (<= Few)
[2018-12-01] MEDS ORDERED: ACETAMINOPHEN 500 MG TABLET PO STA (20:12)
[2018-12-01] MEDS ORDERED: diphenhydrAMINE INJ 50 MG/ML VIAL IVP STA (20:21)
[2018-12-01 23:06] VITALS: BP 108/69
[2018-12-01 23:49] LABS: HGB - HEMOGLOBIN 8.3 g/dL (12.0-16.0)
== END 2018-12-02 00:01 | disposition home or self-care (01) ==
LOC: ED 15:14
DX: R53.1 Weakness (principal); D64.89 Other specified anemias; N93.8 Other specified abnormal uterine and vaginal bleeding
CPT/HCPCS: 36415; 80053; 81001; 81025; 81599; 82533; 83690; 83735; 84443; 85014; 85018; 85025; 86850; 86900; 86901; 86920; 87086; 96374; 99283; 99284; A9270; J1200; P9016; 81003

== ENCOUNTER 2019-01-04 12:32 | Emergency (ER) | payer SELFPAY ==
[2019-01-04 13:45] LABS: BASOPHILS % (AUTO) 1.5 %; EOSINOPHILS % (AUTO) 0.8 %; HGB - HEMOGLOBIN 8.4 g/dL (12.0-16.0); LYMPHOCYTES # (AUTO) 1.2 10^3/uL (1.5-3.5); LYMPHOCYTES % (AUTO) 42.3 %; MEAN CORPUSCULAR HGB CONC 29.1 g/dL (32.0-36.0); MEAN CORPUSCULAR VOLUME 68.7 fL (81.0-99.0); MEAN PLATELET VOLUME 7.7 fL (7.9-10.8); MONOCYTES # (AUTO) 0.2 10^3/uL (0.0-1.0); MONOCYTES % (AUTO) 7.9 %; NEUTROPHILS # (AUTO) 1.4 10^3/uL (1.5-6.6); NEUTROPHILS % (AUTO) 47.5 %; PLT - PLATELET COUNT 282 10^3/uL (130-450); RED CELL DISTRIBUTION WIDTH 22.4 % (12.0-15.0); WHITE BLOOD COUNT 2.9 x10^3/uL (4.8-10.8)
[2019-01-04 13:55] LABS: ALBUMIN/GLOBULIN RATIO 1.3 (1.0-2.2); BILIRUBIN,TOTAL 0.5 mg/dL (0.2-1.0); CALCIUM 8.9 mg/dL (8.5-10.3); CREATININE 0.5 mg/dL (0.4-1.0); TOTAL PROTEIN 7.1 g/dL (6.7-8.2)
--- NOTE | 2019-01-04 13:59 | XRAY Report ---
Reason: chest pain Procedure Date: 01/04/2019 Accession Number: [id number] / [id number] Procedure: XR - Chest 2 View X-Ray CPT Code: 85300 FULL RESULT: EXAM: CHEST RADIOGRAPHY EXAM DATE: 01/04/2019 01:44 PM. CLINICAL HISTORY: Chest pain. COMPARISON: CHEST 1 VIEW 05/21/2017 5:10 PM. TECHNIQUE: 2 views. FINDINGS: Lungs/Pleura: No focal opacities evident. No pleural effusion. No pneumothorax. Normal volumes. Mediastinum: Heart and mediastinal contours are unremarkable. Other: None. IMPRESSION: Normal 2-view chest radiography. RADIA
[2019-01-04 14:28] LABS: DIFFERENTIAL COMMENT MANUAL=AUTO DIFF
[2019-01-04] MEDS ORDERED: SODIUM CHLORIDE 0.9% 1,000 ML IV ONE (16:54)
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
[2019-01-04 18:22] VITALS: BP 110/59
== END 2019-01-04 18:40 | disposition home or self-care (01) ==
LOC: ED 12:32
DX: E86.0 Dehydration (principal)
CPT/HCPCS: 36415; 71046; 80053; 83690; 84484; 85025; 93005; 96360; 99283; 99284

== ENCOUNTER 2019-01-26 14:04 | Outpatient (CLI) | payer SELFPAY | END 2019-01-26 23:59 | LOC: RT.N 14:04 | PROVIDERS: ATTEND Physician Assistant Medical | DX: R07.9 Chest pain, unspecified (principal); D64.9 Anemia, unspecified ==

== ENCOUNTER 2019-01-26 14:50 | Emergency (ER) | payer SELFPAY ==
[2019-01-26] MEDS ORDERED: oxyCODONE 5 MG TABLET PO STA (16:53)
--- NOTE | 2019-01-26 16:55 | ED Physician Documentation ---
History of Present Illness - Stated complaint Stated Complaint: CHEST PX - Chief complaint Chief Complaint: Cardiac - History obtained from History obtained from: Patient, Family - History of Present Illness Timing: Other (This is a 33-year-old woman with chronic anemia who presents with mild chest pain for a day or 2 associated with kind of all over body pain. These of the symptoms she gets when her hemoglobin is particularly low. She went to her physician today and outpatient labs were done reportedly with a hemoglobin of 6.9 and referred here for further evaluation and treatment.) - Additonal information Additional information: She has recurrent severe anemia from heavy vaginal bleeding. In the past hysterectomy has been recommended or other procedure, but she still is wanting to maintain her fertility. Review of Systems Constitutional: reports: Fatigue. denies: Fever, Chills Cardiac: reports: Chest pain / pressure. denies: Palpitations Respiratory: reports: Dyspnea. 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 HEENT: None Psych: None Musculoskeletal: None Derm: None - Past Surgical History Past Surgical History: Yes /ELECTROLOG OPERATOR: Dilation and currettage - Present Medications Home Medications: Ambulatory Orders Medication Instructions Recorded Confirmed Pnv95/Iron Fum/Folic Acid 1 - 3 tab PO DAILY 12/18/16 01/03/18 [ Caplet] Cyanocobalamin (Vitamin B-12) 1,000 mcg PO DAILY 12/04/17 01/03/18 [Vitamin B-12] Sucralfate [Carafate] 1 gm PO ACHS #20 tablet 11/01/18 - Allergies Allergies/Adverse Reactions: Allergies Allergy/AdvReac Type Severity Reaction Status Date / Time hydrocodone Allergy Rash Verified 01/26/19 15:04 codeine [Codeine] AdvReac Intermediate itching/abd Verified 01/26/19 15:04 pain - Social History Does the pt smoke?: No Smoking Status: Never smoker Does the pt drink ETOH?: No Does the pt have substance abuse?: No - Immunizations Immunizations are current?: Yes Immunizations: No immun - POLST Patient has POLST: No PD ED PE NORMAL - Vitals Vital signs reviewed: Yes - General General: Alert and oriented X 3 (She is pale) - Cardiac Cardiac: RRR, No murmur - Respiratory Respiratory: No respiratory distress, Clear bilaterally - Abdomen Abdomen: Non tender - Neuro Neuro: Alert and oriented X 3, Normal speech Results - Vitals Vitals: Vital Signs - 24 hr 01/26/19 01/26/19 01/26/19 15:01 17:00 18:42 Temperature 36.7 C 36.9 C Heart Rate 71 65 62 Respiratory 18 18 18 Rate Blood Pressure 124/52 L 109/64 120/56 L O2 Saturation 100 100 100 01/26/19 01/26/19 01/26/19 19:35 19:46 19:58 Temperature 36.8 C 36.7 C 36.8 C Heart Rate 70 63 60 Respiratory 21 18 18 Rate Blood Pressure 110/65 108/64 112/65 O2 Saturation 01/26/19 01/26/19 01/26/19 20:00 21:03 21:25 Temperature 36.9 C Heart Rate 61 57 L 58 L Respiratory 18 18 16 Rate Blood Pressure 115/74 110/66 101/66 O2 Saturation 100 100 01/26/19 21:43 Temperature 36.9 C Heart Rate 56 L Respiratory 20 Rate Blood Pressure 119/94 H O2 Saturation Oxygen O2 Source Room air - EKG (time done) 1506 Rate: Rate (enter#) (68) Rhythm: NSR [place]: Normal QRS: LVH Ischemia: Normal ST segments Computer interpretation: Agree with computer - Labs Labs: Laboratory Tests 01/26/19 01/26/19 01/26/19 17:00 17:00 17:00 WBC 4.4 L RBC 3.55 L Hgb 7.3 L Hct 24.1 L MCV 68.0 L MCH 20.6 L MCHC 30.3 L RDW 22.1 H Plt Count 385 MPV 8.4 Neut # (Auto) 2.8 Lymph # (Auto) 1.2 L [place] # (Auto) 0.3 Eos # (Auto) 0.0 Baso # (Auto) 0.1 Absolute Nucleated RBC 0.01 Nucleated RBC % 0.1 PT 12.0 INR 1.1 APTT 28.1 Sodium 139 Potassium 3.6 Chloride 107 Carbon Dioxide 24 Anion Gap 8.0 BUN 10 Creatinine 0.5 Estimated GFR (MDRD) 144 Glucose 103 H Calcium 8.9 Total Bilirubin 0.2 AST 18 ALT 18 Alkaline Phosphatase 60 Total Protein 6.8 Albumin 4.0 Globulin 2.8 Albumin/Globulin Ratio 1.4 Lipase 36 Blood Type Antibody Screen Crossmatch IS Only 01/26/19 17:00 WBC RBC Hgb Hct MCV MCH MCHC RDW Plt Count MPV Neut # (Auto) Lymph # (Auto) [place] # (Auto) Eos # (Auto) Baso # (Auto) Absolute Nucleated RBC Nucleated RBC % PT INR APTT Sodium Potassium Chloride Carbon Dioxide Anion Gap BUN Creatinine Estimated GFR (MDRD) Glucose Calcium Total Bilirubin AST ALT Alkaline Phosphatase Total Protein Albumin Globulin Albumin/Globulin Ratio Lipase Blood Type O POSITIVE Antibody Screen NEGATIVE Crossmatch IS Only See Detail PD MEDICAL DECISION MAKING - ED course ED course: This is a 33-year-old woman with chronic anemia due to chronic blood loss who presents with Worsening symptoms due to same. She has a nonischemic EKG. Blood is readied and transfused. Departure - Departure Disposition: 01 Home, Self Care Clinical Impression: Acute on chronic blood loss anemia Condition: Good Record reviewed to determine appropriate education?: Yes Instructions: ED Chest Pain Atypical Unkn Cause Comments: Call your doctor to arrange a follow-up appointment, make the next available appointment. In the interim, return anytime if worse or if new symptoms develop.
[2019-01-26 17:37] LABS: BASOPHILS # (AUTO) 0.1 10^3/uL (0.0-0.1); BASOPHILS % (AUTO) 1.6 %; EOSINOPHILS % (AUTO) 0.7 %; HGB - HEMOGLOBIN 7.3 g/dL (12.0-16.0); LYMPHOCYTES # (AUTO) 1.2 10^3/uL (1.5-3.5); LYMPHOCYTES % (AUTO) 28.3 %; MEAN CORPUSCULAR HEMOGLOBIN 20.6 pg (27.0-31.0); MEAN CORPUSCULAR HGB CONC 30.3 g/dL (32.0-36.0); MEAN PLATELET VOLUME 8.4 fL (7.9-10.8); MONOCYTES # (AUTO) 0.3 10^3/uL (0.0-1.0); MONOCYTES % (AUTO) 5.8 %; NEUTROPHILS # (AUTO) 2.8 10^3/uL (1.5-6.6); NEUTROPHILS % (AUTO) 63.6 %; PLT - PLATELET COUNT 385 10^3/uL (130-450); RED BLOOD COUNT 3.55 10^6/uL (4.20-5.40); RED CELL DISTRIBUTION WIDTH 22.1 % (12.0-15.0); WHITE BLOOD COUNT 4.4 x10^3/uL (4.8-10.8)
[2019-01-26 17:39] LABS: ALBUMIN/GLOBULIN RATIO 1.4 (1.0-2.2); BILIRUBIN,TOTAL 0.2 mg/dL (0.2-1.0); CALCIUM 8.9 mg/dL (8.5-10.3); CREATININE 0.5 mg/dL (0.4-1.0); TOTAL PROTEIN 6.8 g/dL (6.7-8.2)
[2019-01-26 17:42] LABS: INR 1.1 (0.8-1.2)
[2019-01-26 17:50] LABS: PARTIAL THROMBOPLASTIN TIME 28.1 secs (24.9-33.3)
[2019-01-26] MEDS ORDERED: ACETAMINOPHEN 325 MG TABLET PO STA (19:25)
[2019-01-26] MEDS ORDERED: diphenhydrAMINE INJ 50 MG/ML VIAL IVP STA ×2 (19:25→21:13)
[2019-01-26 23:53] VITALS: BP 117/71
== END 2019-01-27 00:05 | disposition home or self-care (01) ==
LOC: ED 14:50
DX: D50.0 Iron deficiency anemia secondary to blood loss (chronic) (principal); R94.31 Abnormal electrocardiogram [ECG] [EKG]
CPT/HCPCS: 36415; 80053; 83690; 85025; 85610; 85730; 86850; 86900; 86901; 86920; 93005; 96374; 96376; 99284; A9270; J1200; P9016

== ENCOUNTER 2019-03-11 15:16 | Emergency (ER) | payer SELFPAY ==
--- NOTE | 2019-03-11 15:44 | ED Physician Documentation ---
PD HPI SYNCOPE - Stated complaint Stated Complaint: JOINT PX/PRESTON - Chief complaint Chief Complaint: General - History obtained from History obtained from: Patient - History of Present Illness Timing - onset: Today (She is feeling lightheaded and like she might pass out. She did not have any true syncope. She is feeling like her blood count might be low as she has had these feelings in the past. She is also having diffuse myalgias and back pain. She is complaining of crampy abdominal pain as well for the last several weeks with 3-4 episodes of watery diarrhea daily which started after taking some antibiotics for sinus infection.) Preceding symptoms: Abdominal pain (Crampy intermittent for several weeks), Light headed, Generalized weakness. No: Headache Contributing factors: No: Recent med change (She started on new oral contraceptive hormone 3 months ago to decrease her periods and therefore less vaginal bleeding. She states her last transfusion was about a month ago. She was on an antibiotic a month ago for a sinus infection and that seemed to improve but she has had some diarrhea since.), Decreased PO intake Similar symptoms before: Diagnosis (She has had this weakness and lightheadedness with low blood counts in the past.) Review of Systems Constitutional: reports: Myalgias, Fatigue. denies: Fever, Chills Nose: denies: Rhinorrhea / runny nose, Congestion Throat: denies: Sore throat Respiratory: denies: Cough GI: reports: Abdominal Pain (Crampy intermittent for several weeks), Nausea, Diarrhea. denies: Vomiting, Constipation : reports: Irregular menses ([facility] denies: Dysuria, Frequency Neurologic: reports: Generalized weakness. 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 HEENT: None Psych: None Musculoskeletal: None Derm: None - Past Surgical History Past Surgical History: Yes /SEWAGE PLANT SUPERVISOR: Dilation and currettage - Present Medications Home Medications: Ambulatory Orders Medication Instructions Recorded Confirmed Pnv95/Iron Fum/Folic Acid 1 - 3 tab PO DAILY 12/18/16 01/03/18 [ [place]] Cyanocobalamin (Vitamin B-12) 1,000 mcg PO DAILY 12/04/17 01/03/18 [Vitamin B-12] Sucralfate [Carafate] 1 gm PO ACHS #20 tablet 11/01/18 Dexamethasone [Decadron] 4 mg PO DAILY #5 tablet 03/11/19 Oxycodone HCl/Acetaminophen 1 each PO Q6H PRN #15 tablet 03/11/19 [Percocet 5-325 mg Tablet] - Allergies Allergies/Adverse Reactions: Allergies Allergy/AdvReac Type Severity Reaction Status Date / Time hydrocodone Allergy Rash Verified 01/26/19 15:04 codeine [Codeine] AdvReac Intermediate itching/abd Verified 01/26/19 15:04 pain - Social History Does the pt smoke?: No Smoking Status: Never smoker Does the pt drink ETOH?: No Does the pt have substance abuse?: No - Immunizations Immunizations are current?: Yes Immunizations: No immun - POLST Patient has POLST: No PD ED PE NORMAL - Vitals Vital signs reviewed: Yes - General General: Alert and oriented X 3, Well developed/nourished - HEENT HEENT: Pharynx benign - Neck Neck: Supple, no meningeal sign, No adenopathy - Cardiac Cardiac: RRR, No murmur - Respiratory Respiratory: Clear bilaterally - Abdomen Abdomen: Normal bowel sounds, Soft, Non distended, No organomegaly, Other (some tenderness lower abd without guarding, percussion nor rebound tenderness. ) - Female Female : Deferred - Rectal Rectal: Deferred - Back Back: No CVA TTP - Derm Derm: Normal color - Extremities Extremities: No edema, No calf tenderness / cord - Neuro Neuro: Alert and oriented X 3, No motor deficit, Normal speech Results - Vitals Vitals: Vital Signs - 24 hr 03/11/19 03/11/19 15:18 17:32 Temperature 37 C 36.6 C Heart Rate 63 56 L Respiratory 18 18 Rate Blood Pressure 123/76 123/77 O2 Saturation 100 99 Oxygen O2 Source Room air - Labs Labs: Laboratory Tests 03/11/19 03/11/19 03/11/19 16:08 16:08 16:08 WBC 3.1 L RBC 4.42 Hgb 9.4 L Hct 31.2 L MCV 70.7 L MCH 21.3 L MCHC 30.1 L RDW 22.5 H Plt Count 177 MPV 8.8 Neut # (Auto) 1.9 Lymph # (Auto) 0.9 L [place] # (Auto) 0.2 Eos # (Auto) 0.0 Baso # (Auto) 0.0 Absolute Nucleated RBC 0.00 Nucleated RBC % 0.1 Manual Slide Review Indicated WBC Morphology NORMAL APPEARANCE Platelet Estimate NORMAL (130-450,000) Platelet Morphology NORMAL APPEARANCE RBC Morph Micro Appear 2+ POLYCHROMASIA Sodium 140 Potassium 3.3 L Chloride 105 Carbon Dioxide 23 Anion Gap 12.0 BUN 10 Creatinine 0.5 Estimated GFR (MDRD) 144 Glucose 110 H Calcium 9.2 Total Bilirubin 0.2 AST 20 ALT 16 Alkaline Phosphatase 60 Total Protein 7.1 Albumin 4.1 Globulin 3.0 Albumin/Globulin Ratio 1.4 Lipase 30 Blood Type O POSITIVE Antibody Screen NEGATIVE PD MEDICAL DECISION MAKING - ED course Complexity details: reviewed results (Her blood count is good and actually the highest it has been for a while at 9.4 hemoglobin. She should continue her B12 and iron. She has had some diarrhea for a few weeks after antibiotics. She did not have to have a bowel movement here. She is given stool collection kit for home to bring a sample in to evaluate for C. difficile and stool culture. She is having diffuse myalgias. We can try steroid anti-inflammatory for several days. Stay well-hydrated.) Departure - Departure Disposition: 01 Home, Self Care Clinical Impression: Myalgia, Light-headed feeling, Acute diarrhea Condition: Stable Record reviewed to determine appropriate education?: Yes Follow-Up: Jeff Mejía PA-C [Primary Care Provider] - Prescriptions: Dexamethasone [Decadron] 4 mg PO DAILY #5 tablet Oxycodone HCl/Acetaminophen [Percocet 5-325 mg Tablet] 1 each PO Q6H PRN #15 tablet PRN Reason: pain Comments: Bring sample of your diarrhea to your primary care for stool culture and studies to see if there is a treatable cause of your diarrhea. Stay well-hydrated. Decadron steroid for inflammation for the next few days to see if it helps with your general aches. Add pain medicine if needed. Follow-up with your primary care this coming week if not improved. Your blood count today is good and continue with usual medications.
[2019-03-11] MEDS ORDERED: DEXAMETHASONE 10 MG/ML VIAL IVP STA (16:09)
[2019-03-11] MEDS: MORPHINE 10 MG/ML VIAL IVP STA ×2 (16:23→16:57)
[2019-03-11 16:31] LABS: ALBUMIN 4.1 g/dL (3.2-5.5); ALBUMIN/GLOBULIN RATIO 1.4 (1.0-2.2); BILIRUBIN,TOTAL 0.2 mg/dL (0.2-1.0); CALCIUM 9.2 mg/dL (8.5-10.3); CREATININE 0.5 mg/dL (0.4-1.0); TOTAL PROTEIN 7.1 g/dL (6.7-8.2)
[2019-03-11 16:34] LABS: BASOPHILS % (AUTO) 1.2 %; EOSINOPHILS % (AUTO) 0.9 %; HGB - HEMOGLOBIN 9.4 g/dL (12.0-16.0); LYMPHOCYTES # (AUTO) 0.9 10^3/uL (1.5-3.5); LYMPHOCYTES % (AUTO) 27.9 %; MEAN CORPUSCULAR HEMOGLOBIN 21.3 pg (27.0-31.0); MEAN CORPUSCULAR HGB CONC 30.1 g/dL (32.0-36.0); MEAN CORPUSCULAR VOLUME 70.7 fL (81.0-99.0); MEAN PLATELET VOLUME 8.8 fL (7.9-10.8); MONOCYTES # (AUTO) 0.2 10^3/uL (0.0-1.0); MONOCYTES % (AUTO) 6.9 %; NEUTROPHILS # (AUTO) 1.9 10^3/uL (1.5-6.6); NEUTROPHILS % (AUTO) 63.1 %; PLT - PLATELET COUNT 177 10^3/uL (130-450); RED BLOOD COUNT 4.42 10^6/uL (4.20-5.40); RED CELL DISTRIBUTION WIDTH 22.5 % (12.0-15.0); WHITE BLOOD COUNT 3.1 x10^3/uL (4.8-10.8)
[2019-03-11 16:43] LABS: PLATELET ESTIMATE, MANUAL NORMAL (130-450,000) (NORMAL); PLATELET MORPHOLOGY NORMAL APPEARANCE (NORMAL)
[2019-03-11] MEDS ORDERED: KETOROLAC 15 MG/ML VIAL IVP STA (17:25)
[2019-03-11 17:32] VITALS: BP 123/77
== END 2019-03-11 17:46 | disposition home or self-care (01) ==
LOC: ED 15:16
DX: M79.10 Myalgia, unspecified site (principal); R42 Dizziness and giddiness; R19.7 Diarrhea, unspecified
CPT/HCPCS: 36415; 80053; 83690; 85025; 86850; 86900; 86901; 96374; 96375; 99283

== ENCOUNTER 2019-05-14 18:01 | Emergency (ER) | payer SELFPAY ==
--- NOTE | 2019-05-14 18:16 | ED Physician Documentation ---
History of Present Illness - Stated complaint Stated Complaint: BODY PX/DIZZY - Chief complaint Chief Complaint: General - History obtained from History obtained from: Patient - History of Present Illness Timing: Other (33-year-old woman chronic menorrhagia presents with diffuse joint pains, wrists, elbows, fingers, ankles, knees. She had the symptoms before when her hemoglobin is quite low and she is needing a transfusion. Its been going on for 3 weeks and increasing. 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 : None HEENT: None Psych: None Musculoskeletal: None Derm: None - Past Surgical History Past Surgical History: Yes /ASSISTANT TO THE VICE PRESIDENT: Dilation and currettage - Allergies Allergies/Adverse Reactions: Allergies Allergy/AdvReac Type Severity Reaction Status Date / Time hydrocodone Allergy Rash Verified 05/05/19 14:34 codeine [Codeine] AdvReac Intermediate itching/abd Verified 05/05/19 14:34 pain - Social History Does the pt smoke?: No Smoking Status: Never smoker Does the pt drink ETOH?: No Does the pt have substance abuse?: No - Immunizations Immunizations are current?: Yes Immunizations: No immun - POLST Patient has POLST: No PD ED PE NORMAL - Vitals Vital signs reviewed: Yes - General General: Alert and oriented X 3, Other (pale) - HEENT HEENT: PERRL, EOMI - Neck Neck: Supple, no meningeal sign, No bony TTP - Cardiac Cardiac: RRR, No murmur - Respiratory Respiratory: No respiratory distress, Clear bilaterally - Abdomen Abdomen: Non tender - Extremities Extremities: Other (No tenderness of any major joint or effusions or swelling or limited range of motion) - Neuro Neuro: Alert and oriented X 3, Normal speech - Psych Psych: Normal mood, Normal affect Results - Vitals Vitals: Vital Signs - 24 hr 05/14/19 18:07 Temperature 36.6 C Heart Rate 66 Respiratory 18 Rate Blood Pressure 123/82 H O2 Saturation 100 Oxygen O2 Source Room air - Labs Labs: Laboratory Tests 05/14/19 05/14/19 05/14/19 18:17 18:17 18:35 WBC 3.7 L RBC 4.58 Hgb 11.3 L Hct 38.0 MCV 83.0 MCH 24.7 L MCHC 29.7 L RDW 23.0 H Plt Count 245 MPV 10.0 Manual Slide Review Indicated Sodium 139 Potassium 3.9 Chloride 108 Carbon Dioxide 23 Anion Gap 8.0 BUN 11 Creatinine 0.5 Estimated GFR (MDRD) 144 Glucose 97 Calcium 9.2 Iron 22 L TIBC 347 % Saturation 6 L Transferrin 248 Urine Color YELLOW Urine Clarity CLEAR Urine pH 5.5 Ur Specific [place] <=1.005 Urine Protein NEGATIVE Urine Glucose (UA) NEGATIVE Urine Ketones NEGATIVE Urine Occult Blood NEGATIVE Urine Nitrite NEGATIVE Urine Bilirubin NEGATIVE Urine Urobilinogen 0.2 (NORMAL) Ur Leukocyte Esterase NEGATIVE Ur Microscopic Review NOT INDICATED Urine Culture Comments NOT INDICATED Urine HCG, Qual NEGATIVE PD MEDICAL DECISION MAKING - ED course ED course: 33-year-old woman presents with diffuse joint pain. This has happened to her in the past when she has needed a transfusion but work-up today shows a hemoglobin that is basically the best it has ever been for her at 11.3. So it could be a polyarthropathy but her new job is likely causative. Departure - Departure Disposition: 01 Home, Self Care Clinical Impression: Light-headed feeling, Dysfunctional uterine bleeding Joint pain Qualifiers: Joint pain location: unspecified Qualified Code(s): M25.50 - Pain in unspecified joint Condition: Good Record reviewed to determine appropriate education?: Yes Health Concerns: joint pain, concern for anemia Plan of Treatment: anemia is minimal now Care Goals: pain control Assessment: as above Instructions: ED Neck Back Pain General Comments: Tylenol as needed for pain, follow-up with your primary care physician if symptoms are persistent.
[2019-05-14 18:42] LABS: BASOPHILS % (AUTO) 0.8 %; EOSINOPHILS # (AUTO) 0.1 10^3/uL (0.0-0.7); EOSINOPHILS % (AUTO) 2.2 %; HGB - HEMOGLOBIN 11.3 g/dL (12.0-16.0); LYMPHOCYTES # (AUTO) 1.3 10^3/uL (1.5-3.5); MEAN CORPUSCULAR HEMOGLOBIN 24.7 pg (27.0-31.0); MEAN CORPUSCULAR HGB CONC 29.7 g/dL (32.0-36.0); MONOCYTES # (AUTO) 0.3 10^3/uL (0.0-1.0); MONOCYTES % (AUTO) 8.4 %; NEUTROPHILS % (AUTO) 54.3 %; PLT - PLATELET COUNT 245 10^3/uL (130-450); RED BLOOD COUNT 4.58 10^6/uL (4.20-5.40); WHITE BLOOD COUNT 3.7 x10^3/uL (4.8-10.8)
[2019-05-14 18:43] LABS: BILIRUBIN,URINE NEGATIVE (NEGATIVE); GLUCOSE, URINE (UA) NEGATIVE (NEGATIVE); KETONES,URINE (UA) NEGATIVE (NEGATIVE); LEUKOCYTE ESTERASE, URINE NEGATIVE (NEGATIVE); NITRITE,URINE NEGATIVE (NEGATIVE); OCCULT BLOOD,URINE NEGATIVE (NEGATIVE); PH,URINE 5.5 PH (5.0-7.5); PROTEIN,URINE NEGATIVE (NEGATIVE); UROBILINOGEN,URINE 0.2 (NORMAL) E.U./dL (NORMAL)
[2019-05-14 18:46] LABS: CLARITY,URINE CLEAR (CLEAR); HCG UR QUAL NEGATIVE
[2019-05-14 19:03] LABS: CALCIUM 9.2 mg/dL (8.5-10.3); CREATININE 0.5 mg/dL (0.4-1.0)
[2019-05-14] MEDS ORDERED: ACETAMINOPHEN 325 MG TABLET PO STA (19:09)
[2019-05-14 19:15] LABS: PLATELET ESTIMATE, MANUAL NORMAL (130-450,000) (NORMAL); PLATELET MORPHOLOGY NORMAL APPEARANCE (NORMAL)
[2019-05-14 19:24] VITALS: BP 117/69
== END 2019-05-14 19:22 | disposition home or self-care (01) ==
LOC: ED 18:01
DX: N93.8 Other specified abnormal uterine and vaginal bleeding (principal); R42 Dizziness and giddiness; M25.50 Pain in unspecified joint
CPT/HCPCS: 36415; 80048; 81003; 81025; 83540; 84466; 85025; 86850; 86900; 86901; 99283; A9270; 81001; 87086

== ENCOUNTER 2019-06-02 22:44 | Emergency (ER) | payer SELFPAY ==
[2019-06-02 22:58] VITALS: BP 115/67
--- NOTE | 2019-06-02 23:10 | ED Physician Documentation ---
History of Present Illness - Stated complaint Stated Complaint: DIZZY,SPINNING - Chief complaint Chief Complaint: Neuro - Additonal information Additional information: I went in the room to see the patient at 2315 And she was not in the room. Apparently the nursing staff had gone out to the waiting room to bring her back to a room and she was not in the waiting room. 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 : None HEENT: None Psych: None Musculoskeletal: None Derm: None - Past Surgical History Past Surgical History: Yes /SUSTAINABILITY PROJECT COORDINATOR: Dilation and currettage - Allergies Allergies/Adverse Reactions: Allergies Allergy/AdvReac Type Severity Reaction Status Date / Time hydrocodone Allergy Rash Verified 06/02/19 22:54 shrimp Allergy itching, Verified 06/02/19 22:54 diarrhea, headche, GI codeine [Codeine] AdvReac Intermediate itching/abd Verified 06/02/19 22:54 pain - Social History Does the pt smoke?: No Smoking Status: Never smoker Does the pt drink ETOH?: No Does the pt have substance abuse?: No - Immunizations Immunizations are current?: Yes Immunizations: No immun - POLST Patient has POLST: No Results - Vitals Vitals: Vital Signs - 24 hr 06/02/19 22:49 Temperature 37.2 C Heart Rate 65 Respiratory 15 Rate Blood Pressure 115/67 O2 Saturation 100 Oxygen O2 Source Room air Departure - Departure Disposition: ED Left Without Being Seen Discharge Date/Time: 06/02/19 23:31
== END 2019-06-02 23:31 | disposition left against medical advice (07) ==
LOC: ED 22:44
DX: Z53.21 Procedure and treatment not carried out due to patient leaving prior to being seen by health care provider (principal)

== ENCOUNTER 2019-06-03 16:12 | Emergency (ER) | payer SELFPAY ==
--- NOTE | 2019-06-03 16:37 | ED Physician Documentation ---
PD HPI ABD PAIN - Stated complaint Stated Complaint: R SIDE PX - Chief complaint Chief Complaint: Abd Pain - History obtained from History obtained from: Patient - History of Present Illness Timing - onset: Other (34-year-old woman with history of anemia related to fibroid uterus and menorrhagia. She had some sort of bladder surgery at the age of 16. She still has her appendix. She complains of nonmigratory 4 days worth of right lower quadrant pain radiating to the low back. She just finished her menses which was normal for her. Pain is worse if she moves it or straightens her leg. It radiates a little little in the leg as well.) Review of Systems Constitutional: denies: Fever, Chills Cardiac: denies: Chest pain / pressure, Palpitations Respiratory: denies: Dyspnea, Cough GI: reports: Abdominal Pain, Nausea, Vomiting. 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: Dilation and currettage - Present Medications Home Medications: Ambulatory Orders Medication Instructions Recorded Confirmed Ondansetron Odt [Zofran] 4 mg TL Q6H PRN #10 tablet 06/03/19 Oxycodone HCl/Acetaminophen 1 - 2 each PO Q6H PRN #10 tablet 06/03/19 [Percocet 5-325 mg Tablet] - Allergies Allergies/Adverse Reactions: Allergies Allergy/AdvReac Type Severity Reaction Status Date / Time hydrocodone Allergy Rash Verified 06/03/19 16:28 shrimp Allergy itching, Verified 06/03/19 16:28 diarrhea, headche, GI codeine [Codeine] AdvReac Intermediate itching/abd Verified 06/03/19 16:28 pain - Social History Does the pt smoke?: No Smoking Status: Never smoker Does the pt drink ETOH?: No Does the pt have substance abuse?: No - Immunizations Immunizations are current?: Yes Immunizations: No immun - POLST Patient has POLST: No PD ED PE NORMAL - Vitals Vital signs reviewed: Yes - General General: Alert and oriented X 3, No acute distress - HEENT HEENT: PERRL, EOMI - Neck Neck: Supple, no meningeal sign, No bony TTP - Cardiac Cardiac: RRR, No murmur - Respiratory Respiratory: No respiratory distress, Clear bilaterally - Abdomen Abdomen: Normal bowel sounds, Soft, Other (Very mild right lower quadrant tenderness without surgical signs) - Back Back: No CVA TTP, No spinal TTP - Derm Derm: Normal color, Warm and dry, No rash - Extremities Extremities: No edema, No calf tenderness / cord - Neuro Neuro: Alert and oriented X 3, Normal speech Results - Vitals Vitals: Vital Signs - 24 hr 06/03/19 16:21 Temperature 36.8 C Heart Rate 69 Respiratory 20 Rate Blood Pressure 125/86 H O2 Saturation 98 Oxygen O2 Source Room air - Labs Labs: Laboratory Tests 06/03/19 06/03/19 06/03/19 16:40 16:40 16:40 WBC 2.8 L RBC 3.16 L Hgb 7.6 L Hct 25.6 L MCV 81.0 MCH 24.1 L MCHC 29.7 L RDW 19.5 H Plt Count 279 MPV 9.6 Neut # (Auto) 1.6 Lymph # (Auto) 1.0 L [place] # (Auto) 0.2 Eos # (Auto) 0.0 Baso # (Auto) 0.0 Absolute Nucleated RBC 0.00 Nucleated RBC % 0.0 Manual Slide Review Indicated Platelet Estimate NORMAL (130-450,000) Platelet Morphology NORMAL APPEARANCE RBC Morph Micro Appear 1+ ANISOCYTOSIS Sodium 140 Potassium 3.6 Chloride 108 Carbon Dioxide 22 Anion Gap 10.0 BUN 7 Creatinine 0.5 Estimated GFR (MDRD) 143 Glucose 101 H Calcium 8.9 Total Bilirubin 0.6 AST 13 ALT 14 Alkaline Phosphatase 45 Total Protein 6.7 Albumin 3.9 Globulin 2.8 Albumin/Globulin Ratio 1.4 Lipase 23 Urine Color YELLOW Urine Clarity CLEAR Urine pH 6.5 Ur Specific [place] 1.010 Urine Protein NEGATIVE Urine Glucose (UA) NEGATIVE Urine Ketones TRACE Urine Occult Blood NEGATIVE Urine Nitrite NEGATIVE Urine Bilirubin NEGATIVE Urine Urobilinogen 0.2 (NORMAL) Ur Leukocyte Esterase NEGATIVE Ur Microscopic Review NOT INDICATED Urine Culture Comments NOT INDICATED Urine HCG, Qual 06/03/19 16:40 WBC RBC Hgb Hct MCV MCH MCHC RDW Plt Count MPV Neut # (Auto) Lymph # (Auto) [place] # (Auto) Eos # (Auto) Baso # (Auto) Absolute Nucleated RBC Nucleated RBC % Manual Slide Review Platelet Estimate Platelet Morphology RBC Morph Micro Appear Sodium Potassium Chloride Carbon Dioxide Anion Gap BUN Creatinine Estimated GFR (MDRD) Glucose Calcium Total Bilirubin AST ALT Alkaline Phosphatase Total Protein Albumin Globulin Albumin/Globulin Ratio Lipase Urine Color Urine Clarity Urine pH Ur Specific [place] 1.010 Urine Protein Urine Glucose (UA) Urine Ketones Urine Occult Blood Urine Nitrite Urine Bilirubin Urine Urobilinogen Ur Leukocyte Esterase Ur Microscopic Review Urine Culture Comments Urine HCG, Qual NEGATIVE - Rads (name of study) CT A/P Radiology: EMP read contemporaneously (Large fibroid uterus, NAD) PD MEDICAL DECISION MAKING - ED course ED course: 34-year-old woman with known problems with chronic recurrent anemia presents with right lower quadrant abdominal pain, a pretty unimpressive exam. Her white count is low but it is always low and the CT shows only a fibroid uterus. Her hemoglobin did drop significantly from her last visit but it is pretty much at her usual baseline right now and therefore I do not think she needs to be transfused but her numbers need to be closely monitored. Departure - Departure Disposition: 01 Home, Self Care Clinical Impression: Dysfunctional uterine bleeding Abdominal pain Qualifiers: Abdominal location: right lower quadrant Qualified Code(s): R10.31 - Right lower quadrant pain Condition: Fair Record reviewed to determine appropriate education?: Yes Instructions: Abdominal Pain Prescriptions: Ondansetron Odt [Zofran] 4 mg TL Q6H PRN #10 tablet PRN Reason: Nausea / Vomiting Oxycodone HCl/Acetaminophen [Percocet 5-325 mg Tablet] 1 - 2 each PO Q6H PRN #10 tablet PRN Reason: pain Comments: Followup with your physician in a few days for repeat labs, return if worse.
[2019-06-03 16:49] LABS: BASOPHILS % (AUTO) 0.4 %; EOSINOPHILS % (AUTO) 0.4 %; HGB - HEMOGLOBIN 7.6 g/dL (12.0-16.0); LYMPHOCYTES % (AUTO) 34.4 %; MEAN CORPUSCULAR HEMOGLOBIN 24.1 pg (27.0-31.0); MEAN CORPUSCULAR HGB CONC 29.7 g/dL (32.0-36.0); MEAN PLATELET VOLUME 9.6 fL (7.9-10.8); MONOCYTES # (AUTO) 0.2 10^3/uL (0.0-1.0); MONOCYTES % (AUTO) 7.2 %; NEUTROPHILS # (AUTO) 1.6 10^3/uL (1.5-6.6); NEUTROPHILS % (AUTO) 57.2 %; PLT - PLATELET COUNT 279 10^3/uL (130-450); RED BLOOD COUNT 3.16 10^6/uL (4.20-5.40); RED CELL DISTRIBUTION WIDTH 19.5 % (12.0-15.0); WHITE BLOOD COUNT 2.8 x10^3/uL (4.8-10.8)
[2019-06-03 16:53] LABS: BILIRUBIN,URINE NEGATIVE (NEGATIVE); GLUCOSE, URINE (UA) NEGATIVE (NEGATIVE); KETONES,URINE (UA) TRACE mg/dL (NEGATIVE); LEUKOCYTE ESTERASE, URINE NEGATIVE (NEGATIVE); NITRITE,URINE NEGATIVE (NEGATIVE); OCCULT BLOOD,URINE NEGATIVE (NEGATIVE); PH,URINE 6.5 PH (5.0-7.5); PROTEIN,URINE NEGATIVE (NEGATIVE); UROBILINOGEN,URINE 0.2 (NORMAL) E.U./dL (NORMAL)
[2019-06-03 16:57] LABS: CLARITY,URINE CLEAR (CLEAR); HCG UR QUAL NEGATIVE
[2019-06-03 17:03] LABS: ALBUMIN 3.9 g/dL (3.2-5.5); ALBUMIN/GLOBULIN RATIO 1.4 (1.0-2.2); BILIRUBIN,TOTAL 0.6 mg/dL (0.2-1.0); CALCIUM 8.9 mg/dL (8.5-10.3); CREATININE 0.5 mg/dL (0.4-1.0); TOTAL PROTEIN 6.7 g/dL (6.7-8.2)
[2019-06-03] MEDS ORDERED: IOVERSOL 320 100 ML VIAL IVP ONE ×2 (17:12→17:41)
[2019-06-03] MEDS ORDERED: HYDROmorphone 1 MG/ML CARPUJECT IVP STA (17:20)
[2019-06-03 17:44] LABS: PLATELET ESTIMATE, MANUAL NORMAL (130-450,000) (NORMAL); PLATELET MORPHOLOGY NORMAL APPEARANCE (NORMAL)
--- NOTE | 2019-06-03 17:54 | CT Report ---
Reason: IV only, RLQ pain Procedure Date: 06/03/2019 Accession Number: [id number] / [id number] Procedure: CT - Abdomen/Pelvis W CPT Code: FULL RESULT: EXAM: CT ABDOMEN AND PELVIS EXAM DATE: 06/03/2019 05:36 PM. CLINICAL HISTORY: IV only, RLQ pain. COMPARISONS: ABDOMEN/PELVIS W/ 06/06/2014 7:02 PM. TECHNIQUE: Routine helical CT imaging was performed through the abdomen and pelvis. IV contrast: OPTI 320 90ML. Enteric contrast: No. Reconstructions: Coronal and sagittal. In accordance with CT protocol optimization, one or more of the following dose reduction techniques were utilized for this exam: automated exposure control, adjustment of mA and/or KV based on patient size, or use of iterative reconstructive technique. FINDINGS: Lung Bases: Unremarkable. Liver: There is a 0.7 cm hypodensity within the right hepatic lobe. This is too small to characterize. No suspicious hepatic abnormalities are seen. Gallbladder/Bile Ducts: Unremarkable. Spleen: Normal. Pancreas: Normal. Adrenal Glands: Normal. Kidneys: Normal. No masses or hydronephrosis. Peritoneal Cavity/Bowel: Normal. No free fluid, free air or adenopathy. No masses or acute inflammatory process. The appendix is well visualized and normal. Pelvic Organs: There is an enlarged anterior exophytic uterine fibroid measuring 11 x 13 x 16 cm. No significant adnexal abnormalities are seen. The urinary bladder is decompressed. Vasculature: No aneurysms or other significant abnormality. Bones: No significant abnormality. Other: None. IMPRESSION: 1. Enlarged anterior exophytic uterine fibroid measuring 11 x 13 x 16 cm. 2. No acute solid or hollow viscus organ abnormalities are seen. There is no evidence of appendicitis or bowel obstruction. [facility]
[2019-06-03] MEDS ORDERED: oxyCODONE/ACET 5/325 Prepack 4 PO STA (18:09)
[2019-06-03] MEDS ORDERED: ONDANSETRON ODT 4 MG Prepack 2 TL STA (18:09)
[2019-06-03 18:16] VITALS: BP 115/73
== END 2019-06-03 18:21 | disposition home or self-care (01) ==
LOC: ED 16:12
DX: N93.8 Other specified abnormal uterine and vaginal bleeding (principal); D25.9 Leiomyoma of uterus, unspecified; D53.9 Nutritional anemia, unspecified
CPT/HCPCS: 36415; 74177; 80053; 81003; 81025; 83690; 85025; 96374; 99283; 99284; J1170; Q9967; 81001; 87086

== ENCOUNTER 2019-06-20 15:05 | Emergency (ER) | payer SELFPAY ==
--- NOTE | 2019-06-20 15:38 | ED Physician Documentation ---
History of Present Illness - Stated complaint Stated Complaint: DIZZY - Chief complaint Chief Complaint: General - History obtained from History obtained from: Patient - History of Present Illness Timing: Today (dizzy and SOA since this AM. Has known history of fibroids causing menorrhagia, is on her menses, day 5 and has had some weakness for the last 3 days.) Review of Systems Constitutional: reports: Fatigue. 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 HEENT: None Psych: None Musculoskeletal: None Derm: None - Past Surgical History Past Surgical History: Yes /STORE KEEPER: Dilation and currettage - Present Medications Home Medications: Ambulatory Orders Medication Instructions Recorded Confirmed Ondansetron Odt [Zofran] 4 mg TL Q6H PRN #10 tablet 06/03/19 06/13/19 Oxycodone HCl/Acetaminophen 1 - 2 each PO Q6H PRN #10 tablet 06/03/19 06/13/19 [Percocet 5-325 mg Tablet] - Allergies Allergies/Adverse Reactions: Allergies Allergy/AdvReac Type Severity Reaction Status Date / Time hydrocodone Allergy Rash Verified 06/20/19 15:12 shrimp Allergy itching, Verified 06/20/19 15:12 diarrhea, headche, GI codeine [Codeine] AdvReac Intermediate itching/abd Verified 06/20/19 15:12 pain - Social History Does the pt smoke?: No Smoking Status: Never smoker Does the pt drink ETOH?: No Does the pt have substance abuse?: No - Immunizations Immunizations are current?: Yes Immunizations: No immun - POLST Patient has POLST: No PD ED PE NORMAL - Vitals Vital signs reviewed: Yes - General General: Alert and oriented X 3, Other (Pale) - HEENT HEENT: PERRL, EOMI - Neck Neck: Supple, no meningeal sign, No bony TTP - Abdomen Abdomen: Normal bowel sounds, Soft, Non tender - Neuro Neuro: Alert and oriented X 3, Normal speech Results - Vitals Vitals: Vital Signs - 24 hr 06/20/19 06/20/19 15:12 17:03 Temperature 36.9 C 36.6 C Heart Rate 73 62 Respiratory 15 18 Rate Blood Pressure 107/60 110/67 O2 Saturation 100 100 Oxygen O2 Source Room air - Labs Labs: Laboratory Tests 06/20/19 06/20/19 06/20/19 15:40 15:40 15:40 WBC 3.1 L RBC 2.68 L Hgb 5.8 L* Hct 20.9 L MCV 78.0 L MCH 21.6 L MCHC 27.8 L RDW 20.3 H Plt Count 277 MPV 11.0 H Neut # (Auto) 1.7 Lymph # (Auto) 1.1 L [place] # (Auto) 0.2 Eos # (Auto) 0.0 Baso # (Auto) 0.0 Absolute Nucleated RBC 0.00 Nucleated RBC % 0.0 Manual Slide Review Indicated Platelet Estimate NORMAL (130-450,000) Platelet Morphology NORMAL APPEARANCE RBC Morph Micro Appear 3+ HYPOCHROMASIA Sodium 138 Potassium 3.6 Chloride 106 Carbon Dioxide 23 Anion Gap 9.0 BUN 11 Creatinine 0.5 Estimated GFR (MDRD) 143 Glucose 108 H Calcium 8.9 Total Bilirubin 0.4 AST 12 ALT 12 Alkaline Phosphatase 46 Total Protein 7.0 Albumin 3.9 Globulin 3.1 Albumin/Globulin Ratio 1.3 Lipase 25 Serum HCG, Qual NEGATIVE Blood Type Antibody Screen Crossmatch IS Only 06/20/19 15:52 WBC RBC Hgb Hct MCV MCH MCHC RDW Plt Count MPV Neut # (Auto) Lymph # (Auto) [place] # (Auto) Eos # (Auto) Baso # (Auto) Absolute Nucleated RBC Nucleated RBC % Manual Slide Review Platelet Estimate Platelet Morphology RBC Morph Micro Appear Sodium Potassium Chloride Carbon Dioxide Anion Gap BUN Creatinine Estimated GFR (MDRD) Glucose Calcium Total Bilirubin AST ALT Alkaline Phosphatase Total Protein Albumin Globulin Albumin/Globulin Ratio Lipase Serum HCG, Qual Blood Type O POSITIVE Antibody Screen NEGATIVE Crossmatch IS Only See Detail PD MEDICAL DECISION MAKING - ED course ED course: 34-year-old woman with fibroids with history of menorrhagia, she is seeing a specialist and occasionally needs transfusions for same and today is 1 of those days with a hemoglobin of 5.8 for which she is administered 2 units preceded by Tylenol and Benadryl. Departure - Departure Disposition: 01 Home, Self Care Clinical Impression: Symptomatic anemia Heavy menstrual bleeding Qualifiers: Menorrahagia type: with regular cycle Qualified Code(s): N92.0 - Excessive and frequent menstruation with regular cycle Condition: Stable Record reviewed to determine appropriate education?: Yes Instructions: ED Fibroids Comments: Follow-up with your specialist at [facility] as scheduled. Return for new worsening symptoms.
[2019-06-20 15:52] LABS: EOSINOPHILS % (AUTO) 1.3 %; LYMPHOCYTES # (AUTO) 1.1 10^3/uL (1.5-3.5); LYMPHOCYTES % (AUTO) 35.7 %; MEAN CORPUSCULAR HEMOGLOBIN 21.6 pg (27.0-31.0); MEAN CORPUSCULAR HGB CONC 27.8 g/dL (32.0-36.0); MONOCYTES # (AUTO) 0.2 10^3/uL (0.0-1.0); MONOCYTES % (AUTO) 5.5 %; NEUTROPHILS # (AUTO) 1.7 10^3/uL (1.5-6.6); NEUTROPHILS % (AUTO) 55.9 %; PLT - PLATELET COUNT 277 10^3/uL (130-450); RED BLOOD COUNT 2.68 10^6/uL (4.20-5.40); RED CELL DISTRIBUTION WIDTH 20.3 % (12.0-15.0); WHITE BLOOD COUNT 3.1 x10^3/uL (4.8-10.8)
[2019-06-20 15:56] LABS: HGB - HEMOGLOBIN 5.8 g/dL (12.0-16.0)
[2019-06-20] MEDS ORDERED: diphenhydrAMINE 25 MG CAPSULE PO STA (15:56)
[2019-06-20] MEDS ORDERED: ACETAMINOPHEN 325 MG TABLET PO STA ×2 (15:56→20:47)
[2019-06-20 16:07] LABS: ALBUMIN 3.9 g/dL (3.2-5.5); ALBUMIN/GLOBULIN RATIO 1.3 (1.0-2.2); BILIRUBIN,TOTAL 0.4 mg/dL (0.2-1.0); CALCIUM 8.9 mg/dL (8.5-10.3); CREATININE 0.5 mg/dL (0.4-1.0)
[2019-06-20 16:16] LABS: HCG,QUALITATIVE BLOOD NEGATIVE
[2019-06-20 16:18] LABS: PLATELET ESTIMATE, MANUAL NORMAL (130-450,000) (NORMAL); PLATELET MORPHOLOGY NORMAL APPEARANCE (NORMAL)
[2019-06-20 21:04] VITALS: BP 106/64
== END 2019-06-20 21:04 | disposition home or self-care (01) ==
LOC: ED 15:05
DX: D64.9 Anemia, unspecified (principal); N92.0 Excessive and frequent menstruation with regular cycle
CPT/HCPCS: 36415; 36430; 80053; 83690; 84703; 85025; 86850; 86900; 86901; 86920; 99283; 99285; A9270; P9016

== ENCOUNTER 2019-07-20 11:33 | Emergency (ER) | payer SELFPAY ==
[2019-07-20 12:47] LABS: EOSINOPHILS % (AUTO) 1.3 %; LYMPHOCYTES % (AUTO) 33.3 %; MEAN CORPUSCULAR HEMOGLOBIN 20.9 pg (27.0-31.0); MEAN CORPUSCULAR HGB CONC 27.2 g/dL (32.0-36.0); MEAN CORPUSCULAR VOLUME 76.8 fL (81.0-99.0); MEAN PLATELET VOLUME 10.3 fL (7.9-10.8); MONOCYTES # (AUTO) 0.3 10^3/uL (0.0-1.0); MONOCYTES % (AUTO) 8.3 %; NEUTROPHILS # (AUTO) 1.8 10^3/uL (1.5-6.6); NEUTROPHILS % (AUTO) 56.1 %; PLT - PLATELET COUNT 277 10^3/uL (130-450); RED BLOOD COUNT 2.97 10^6/uL (4.20-5.40); RED CELL DISTRIBUTION WIDTH 18.8 % (12.0-15.0); WHITE BLOOD COUNT 3.1 x10^3/uL (4.8-10.8)
[2019-07-20 12:51] LABS: HGB - HEMOGLOBIN 6.2 g/dL (12.0-16.0)
[2019-07-20 13:00] LABS: ALBUMIN 3.7 g/dL (3.2-5.5); ALBUMIN/GLOBULIN RATIO 1.4 (1.0-2.2); BILIRUBIN,TOTAL 0.7 mg/dL (0.2-1.0); CREATININE 0.5 mg/dL (0.4-1.0); TOTAL PROTEIN 6.4 g/dL (6.7-8.2)
[2019-07-20 13:34] LABS: BILIRUBIN,URINE NEGATIVE (NEGATIVE); GLUCOSE, URINE (UA) NEGATIVE (NEGATIVE); KETONES,URINE (UA) NEGATIVE (NEGATIVE); LEUKOCYTE ESTERASE, URINE NEGATIVE (NEGATIVE); NITRITE,URINE NEGATIVE (NEGATIVE); OCCULT BLOOD,URINE SMALL (NEGATIVE); PROTEIN,URINE NEGATIVE (NEGATIVE); UROBILINOGEN,URINE 0.2 (NORMAL) E.U./dL (NORMAL)
[2019-07-20 13:37] LABS: CLARITY,URINE CLEAR (CLEAR)
--- NOTE | 2019-07-20 14:13 | ED Physician Documentation ---
History of Present Illness - Stated complaint Stated Complaint: WEAKNESS - Chief complaint Chief Complaint: General - History obtained from History obtained from: Patient - History of Present Illness Timing: Today (34-year-old woman with chronic recurrent anemia presents with weakness and pounding headache similar prior episodes of anemia. She is on her menses. She already got Feraheme today but feels like it is more acute than that. 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 AND VENTILATING DRAFTER: Dilation and currettage - Present Medications Home Medications: Ambulatory Orders Medication Instructions Recorded Confirmed Ondansetron Odt [Zofran] 4 mg TL Q6H PRN #10 tablet 06/03/19 06/13/19 Oxycodone HCl/Acetaminophen 1 - 2 each PO Q6H PRN #10 tablet 06/03/19 06/13/19 [Percocet 5-325 mg Tablet] - Allergies Allergies/Adverse Reactions: Allergies Allergy/AdvReac Type Severity Reaction Status Date / Time hydrocodone Allergy Rash Verified 06/20/19 15:12 shrimp Allergy itching, Verified 06/20/19 15:12 diarrhea, headche, GI codeine [Codeine] AdvReac Intermediate itching/abd Verified 06/20/19 15:12 pain - Social History Does the pt smoke?: No Smoking Status: Never smoker Does the pt drink ETOH?: No Does the pt have substance abuse?: No - Immunizations Immunizations are current?: Yes Immunizations: No immun - POLST Patient has POLST: No PD ED PE NORMAL - Vitals Vital signs reviewed: Yes - General General: Alert and oriented X 3, Other (pale) - Cardiac Cardiac: RRR, No murmur - Respiratory Respiratory: No respiratory distress, Clear bilaterally - Abdomen Abdomen: Non tender - Derm Derm: No rash - Neuro Neuro: Alert and oriented X 3, Normal speech Results - Vitals Vitals: Vital Signs - 24 hr 07/20/19 07/20/19 07/20/19 11:54 14:19 14:28 Temperature 36.5 C 36.7 C 36.6 C Heart Rate 61 66 60 Respiratory 18 16 18 Rate Blood Pressure 104/61 117/82 H 120/78 O2 Saturation 100 100 07/20/19 14:46 Temperature 36.6 C Heart Rate 65 Respiratory 16 Rate Blood Pressure 119/71 O2 Saturation 100 Oxygen O2 Source Room air - Labs Labs: Laboratory Tests 07/20/19 07/20/19 07/20/19 12:31 12:31 12:31 WBC 3.1 L RBC 2.97 L Hgb 6.2 L* Hct 22.8 L MCV 76.8 L MCH 20.9 L MCHC 27.2 L RDW 18.8 H Plt Count 277 MPV 10.3 Neut # (Auto) 1.8 Lymph # (Auto) 1.0 L [place] # (Auto) 0.3 Eos # (Auto) 0.0 Baso # (Auto) 0.0 Absolute Nucleated RBC 0.02 Nucleated RBC % 0.6 Sodium 140 Potassium 3.9 Chloride 108 Carbon Dioxide 26 Anion Gap 6.0 BUN 11 Creatinine 0.5 Estimated GFR (MDRD) 143 Glucose 110 H Calcium 9.0 Total Bilirubin 0.7 AST 12 ALT 12 Alkaline Phosphatase 49 Total Protein 6.4 L Albumin 3.7 Globulin 2.7 Albumin/Globulin Ratio 1.4 Lipase 35 Urine Color Urine Clarity Urine pH Ur Specific [place] Urine Protein Urine Glucose (UA) Urine Ketones Urine Occult Blood Urine Nitrite Urine Bilirubin Urine Urobilinogen Ur Leukocyte Esterase Urine RBC Urine WBC Ur Squamous Epith Cells Urine Bacteria Ur Microscopic Review Urine Culture Comments Urine HCG, Qual Blood Type O POSITIVE Antibody Screen NEGATIVE Crossmatch IS Only See Detail 07/20/19 12:57 WBC RBC Hgb Hct MCV MCH MCHC RDW Plt Count MPV Neut # (Auto) Lymph # (Auto) [place] # (Auto) Eos # (Auto) Baso # (Auto) Absolute Nucleated RBC Nucleated RBC % Sodium Potassium Chloride Carbon Dioxide Anion Gap BUN Creatinine Estimated GFR (MDRD) Glucose Calcium Total Bilirubin AST ALT Alkaline Phosphatase Total Protein Albumin Globulin Albumin/Globulin Ratio Lipase Urine Color YELLOW Urine Clarity CLEAR Urine pH 6.0 Ur Specific [place] 1.020 Urine Protein NEGATIVE Urine Glucose (UA) NEGATIVE Urine Ketones NEGATIVE Urine Occult Blood SMALL H Urine Nitrite NEGATIVE Urine Bilirubin NEGATIVE Urine Urobilinogen 0.2 (NORMAL) Ur Leukocyte Esterase NEGATIVE Urine RBC 0-5 Urine WBC 0-3 Ur Squamous Epith Cells NONE SEEN Urine Bacteria None Seen Ur Microscopic Review INDICATED Urine Culture Comments NOT INDICATED Urine HCG, Qual NEGATIVE Blood Type Antibody Screen Crossmatch IS Only PD MEDICAL DECISION MAKING - ED course ED course: 34-year-old woman with a worsening of her chronic anemia. See prior notes and oncology notes. She is transfused 2 units here. Departure - Departure Disposition: 01 Home, Self Care Clinical Impression: Symptomatic anemia, Acute on chronic blood loss anemia Condition: Good Record reviewed to determine appropriate education?: Yes Comments: Follow-up with your therapist respiratory as scheduled for further evaluation and treatment. Return anytime if worse.
[2019-07-20] MEDS ORDERED: diphenhydrAMINE INJ 50 MG/ML VIAL IVP STA (14:16)
[2019-07-20] MEDS ORDERED: ACETAMINOPHEN 325 MG TABLET PO STA (14:16)
[2019-07-20 14:18] LABS: BACTERIA,URINE None Seen /HPF (None Seen); RBC,URINE 0-5 /HPF (0-5); SQUAMOUS EPITHELIAL CELL,UR NONE SEEN (<= Few)
[2019-07-20 14:19] LABS: HCG UR QUAL NEGATIVE
[2019-07-20 19:34] VITALS: BP 115/81
== END 2019-07-20 19:37 | disposition home or self-care (01) ==
LOC: ED 11:33
DX: D62 Acute posthemorrhagic anemia (principal)
CPT/HCPCS: 36415; 36430; 80053; 81001; 81025; 83690; 85025; 86850; 86900; 86901; 86920; 96374; 99283; 99285; A9270; J1200; P9016; 81003; 87086

== ENCOUNTER 2019-08-25 16:29 | Emergency (ER) | payer SELFPAY ==
--- NOTE | 2019-08-25 16:55 | ED Physician Documentation ---
History of Present Illness - Stated complaint Stated Complaint: JAW PX - Chief complaint Chief Complaint: Heent - History obtained from History obtained from: Patient - History of Present Illness Timing: Today (34-year-old woman with history of fibroid uterus causing heavy bleeding. Just finished up her menses and has some chest pressure and calf pain which is similar to prior episodes of severe anemia.) Review of Systems Ten Systems: 10 systems reviewed and negative Constitutional: reports: Fatigue. denies: Fever, Chills Nose: denies: Rhinorrhea / runny nose, Congestion Cardiac: denies: Palpitations, Pedal edema, Calf pain Respiratory: reports: Dyspnea. 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: Dilation and currettage - Present Medications Home Medications: Ambulatory Orders Medication Instructions Recorded Confirmed Ondansetron Odt [Zofran] 4 mg TL Q6H PRN #10 tablet 06/03/19 06/13/19 Oxycodone HCl/Acetaminophen 1 - 2 each PO Q6H PRN #10 tablet 06/03/19 06/13/19 [Percocet 5-325 mg Tablet] - Allergies Allergies/Adverse Reactions: Allergies Allergy/AdvReac Type Severity Reaction Status Date / Time hydrocodone Allergy Rash Verified 08/25/19 16:42 shrimp Allergy itching, Verified 08/25/19 16:42 diarrhea, headche, GI codeine [Codeine] AdvReac Intermediate itching/abd Verified 08/25/19 16:42 pain - Social History Does the pt smoke?: No Smoking Status: Never smoker Does the pt drink ETOH?: No Does the pt have substance abuse?: No - Immunizations Immunizations are current?: Yes Immunizations: No immun - POLST Patient has POLST: No PD ED PE NORMAL - Vitals Vital signs reviewed: Yes - General General: Alert and oriented X 3, Other (Pale) - HEENT HEENT: PERRL, EOMI - Neck Neck: Supple, no meningeal sign, No bony TTP - Cardiac Cardiac: RRR, No murmur - Respiratory Respiratory: No respiratory distress, Clear bilaterally - Abdomen Abdomen: Non tender - Neuro Neuro: Alert and oriented X 3, 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, No motor deficit, No sensory deficit, Normal speech - Psych Psych: Normal mood, Normal affect Results - Vitals Vitals: Vital Signs - 24 hr 08/25/19 08/25/19 08/25/19 16:42 17:11 18:03 Temperature 36.8 C Heart Rate 64 63 57 L Respiratory 16 18 18 Rate Blood Pressure 102/86 H 121/86 H 106/57 L O2 Saturation 100 99 100 Oxygen O2 Source Room air - EKG (time done) 1735 Rate: Rate (enter#) (66) Rhythm: NSR [place]: Normal Intervals: Normal GA QRS: LVH Ischemia: Normal ST segments Computer interpretation: Agree with computer - Labs Labs: Laboratory Tests 08/25/19 08/25/19 08/25/19 16:54 16:58 16:58 WBC 3.4 L RBC 3.95 L Hgb 10.4 L Hct 34.5 L MCV 87.3 MCH 26.3 L MCHC 30.1 L RDW 21.2 H Plt Count 268 MPV 10.4 Neut # (Auto) 2.3 Lymph # (Auto) 0.8 L [place] # (Auto) 0.2 Eos # (Auto) 0.0 Baso # (Auto) 0.0 Absolute Nucleated RBC 0.00 Nucleated RBC % 0.0 Manual Slide Review Indicated WBC Morphology NORMAL APPEARANCE Platelet Estimate NORMAL (130-450,000) Platelet Morphology NORMAL APPEARANCE RBC Morph Micro Appear 2+ ANISOCYTOSIS Sodium 142 Potassium 3.5 Chloride 108 Carbon Dioxide 26 Anion Gap 8.0 BUN 14 Creatinine 0.6 Estimated GFR (MDRD) 116 Glucose 120 H Calcium 9.3 Serum HCG, Qual NEGATIVE Urine Color Urine Clarity Urine pH Ur Specific [place] Urine Protein Urine Glucose (UA) Urine Ketones Urine Occult Blood Urine Nitrite Urine Bilirubin Urine Urobilinogen Ur Leukocyte Esterase Ur Microscopic Review Urine Culture Comments Urine HCG, Qual 08/25/19 17:14 WBC RBC Hgb Hct MCV MCH MCHC RDW Plt Count MPV Neut # (Auto) Lymph # (Auto) [place] # (Auto) Eos # (Auto) Baso # (Auto) Absolute Nucleated RBC Nucleated RBC % Manual Slide Review WBC Morphology Platelet Estimate Platelet Morphology RBC Morph Micro Appear Sodium Potassium Chloride Carbon Dioxide Anion Gap BUN Creatinine Estimated GFR (MDRD) Glucose Calcium Serum HCG, Qual Urine Color YELLOW Urine Clarity CLEAR Urine pH 5.0 Ur Specific [place] >=1.030 H Urine Protein NEGATIVE Urine Glucose (UA) NEGATIVE Urine Ketones NEGATIVE Urine Occult Blood NEGATIVE Urine Nitrite NEGATIVE Urine Bilirubin NEGATIVE Urine Urobilinogen 0.2 (NORMAL) Ur Leukocyte Esterase NEGATIVE Ur Microscopic Review NOT INDICATED Urine Culture Comments NOT INDICATED Urine HCG, Qual Cancelled PD MEDICAL DECISION MAKING - ED course ED course: Her H&H is excellent for her, her EKG is nonischemic. Follow-up with her surgeon was advised. Departure - Departure Disposition: 01 Home, Self Care Clinical Impression: Chest pain Qualifiers: Chest pain type: unspecified Qualified Code(s): R07.9 - Chest pain, unspecified Joint pain Qualifiers: Joint pain location: unspecified Qualified Code(s): M25.50 - Pain in unspeci fied joint Condition: Good Record reviewed to determine appropriate education?: Yes Instructions: ED Chest Pain NonCardiac Comments: All up in the [facility] clinic for iron infusion, also with your surgeon. Return for new or worsening symptoms.
[2019-08-25 17:11] LABS: BASOPHILS % (AUTO) 0.9 %; EOSINOPHILS % (AUTO) 1.2 %; HGB - HEMOGLOBIN 10.4 g/dL (12.0-16.0); LYMPHOCYTES # (AUTO) 0.8 10^3/uL (1.5-3.5); LYMPHOCYTES % (AUTO) 23.8 %; MEAN CORPUSCULAR HEMOGLOBIN 26.3 pg (27.0-31.0); MEAN CORPUSCULAR HGB CONC 30.1 g/dL (32.0-36.0); MEAN CORPUSCULAR VOLUME 87.3 fL (81.0-99.0); MEAN PLATELET VOLUME 10.4 fL (7.9-10.8); MONOCYTES # (AUTO) 0.2 10^3/uL (0.0-1.0); MONOCYTES % (AUTO) 5.6 %; NEUTROPHILS # (AUTO) 2.3 10^3/uL (1.5-6.6); NEUTROPHILS % (AUTO) 67.9 %; PLT - PLATELET COUNT 268 10^3/uL (130-450); RED BLOOD COUNT 3.95 10^6/uL (4.20-5.40); RED CELL DISTRIBUTION WIDTH 21.2 % (12.0-15.0); WHITE BLOOD COUNT 3.4 x10^3/uL (4.8-10.8)
[2019-08-25 17:27] LABS: BILIRUBIN,URINE NEGATIVE (NEGATIVE); GLUCOSE, URINE (UA) NEGATIVE (NEGATIVE); KETONES,URINE (UA) NEGATIVE (NEGATIVE); LEUKOCYTE ESTERASE, URINE NEGATIVE (NEGATIVE); NITRITE,URINE NEGATIVE (NEGATIVE); OCCULT BLOOD,URINE NEGATIVE (NEGATIVE); PROTEIN,URINE NEGATIVE (NEGATIVE); UROBILINOGEN,URINE 0.2 (NORMAL) E.U./dL (NORMAL)
[2019-08-25 17:30] LABS: CLARITY,URINE CLEAR (CLEAR)
[2019-08-25 17:31] LABS: CALCIUM 9.3 mg/dL (8.5-10.3); CREATININE 0.6 mg/dL (0.4-1.0)
[2019-08-25] MEDS ORDERED: MORPHINE 2 MG/ML CARPUJECT IVP STA (17:32)
[2019-08-25 17:33] LABS: PLATELET ESTIMATE, MANUAL NORMAL (130-450,000) (NORMAL); PLATELET MORPHOLOGY NORMAL APPEARANCE (NORMAL); RBC MORPHOLOGY (MULTIPLE) 2+ ANISOCYTOSIS (NORMAL)
[2019-08-25 18:01] LABS: HCG,QUALITATIVE BLOOD NEGATIVE
[2019-08-25 18:04] VITALS: BP 106/57
== END 2019-08-25 18:43 | disposition home or self-care (01) ==
LOC: ED 16:29
DX: R07.9 Chest pain, unspecified (principal); M25.50 Pain in unspecified joint
CPT/HCPCS: 36415; 80048; 81001; 81003; 81025; 84703; 85025; 86850; 86900; 86901; 87086; 93005; 96374; 99283

== ENCOUNTER 2019-11-02 00:37 | Emergency (ER) | payer SELFPAY ==
[2019-11-02 01:03] LABS: BILIRUBIN,URINE NEGATIVE (NEGATIVE); GLUCOSE, URINE (UA) NEGATIVE (NEGATIVE); KETONES,URINE (UA) NEGATIVE (NEGATIVE); LEUKOCYTE ESTERASE, URINE NEGATIVE (NEGATIVE); NITRITE,URINE NEGATIVE (NEGATIVE); OCCULT BLOOD,URINE NEGATIVE (NEGATIVE); PH,URINE 6.5 PH (5.0-7.5); PROTEIN,URINE NEGATIVE (NEGATIVE); UROBILINOGEN,URINE 0.2 (NORMAL) E.U./dL (NORMAL)
[2019-11-02 01:06] LABS: CLARITY,URINE CLEAR (CLEAR)
[2019-11-02 01:18] LABS: HGB - HEMOGLOBIN 10.6 g/dL (12.0-16.0); LYMPHOCYTES # (AUTO) 1.1 10^3/uL (1.5-3.5); LYMPHOCYTES % (AUTO) 26.8 %; MEAN CORPUSCULAR HEMOGLOBIN 26.6 pg (27.0-31.0); MEAN CORPUSCULAR HGB CONC 30.9 g/dL (32.0-36.0); MEAN PLATELET VOLUME 10.9 fL (7.9-10.8); MONOCYTES # (AUTO) 0.4 10^3/uL (0.0-1.0); MONOCYTES % (AUTO) 8.8 %; NEUTROPHILS # (AUTO) 2.5 10^3/uL (1.5-6.6); NEUTROPHILS % (AUTO) 62.1 %; PLT - PLATELET COUNT 342 10^3/uL (130-450); RED BLOOD COUNT 3.99 10^6/uL (4.20-5.40); RED CELL DISTRIBUTION WIDTH 19.8 % (12.0-15.0)
[2019-11-02 01:31] LABS: ALBUMIN 3.9 g/dL (3.2-5.5); ALBUMIN/GLOBULIN RATIO 1.2 (1.0-2.2); BILIRUBIN,TOTAL 0.4 mg/dL (0.2-1.0); CALCIUM 9.4 mg/dL (8.5-10.3); CREATININE 0.6 mg/dL (0.4-1.0); TOTAL PROTEIN 7.1 g/dL (6.7-8.2)
--- NOTE | 2019-11-02 02:10 | ED Physician Documentation ---
History of Present Illness - Stated complaint Stated Complaint: LEG PX,WEAK, DIZZY - Chief complaint Chief Complaint: General - Additonal information Additional information: This is a 34-year-old female with a history of anemia requiring past blood transfusions and iron transfusions who presents with achiness in her legs as well as some slight chest discomfort, as well as concern for anemia. Patient states over the last several days she has had some achiness in her calves, and some pressure-like chest discomfort which is typical for her when she needs a transfusion. She has a history of heavy uterine bleeding which has required her to get multiple blood transfusions and iron transfusions. Her bleeding has been better controlled now that she is on control pills. She denies fever or cough, denies leg swelling, has never history of a blood clot. No cardiac history. Review of Systems Constitutional: denies: Fever Cardiac: reports: Calf pain Respiratory: denies: Cough, Hemoptysis GI: denies: Abdominal Pain, Vomiting : denies: Dysuria Skin: denies: Rash Musculoskeletal: reports: Extremity pain. 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: Dilation and currettage - Present Medications Home Medications: Ambulatory Orders Medication Instructions Recorded Confirmed Ondansetron Odt [Zofran] 4 mg TL Q6H PRN #10 tablet 06/03/19 10/03/19 Oxycodone HCl/Acetaminophen 1 - 2 each PO Q6H PRN #10 tablet 06/03/19 10/03/19 [Percocet 5-325 mg Tablet] - Allergies Allergies/Adverse Reactions: Allergies Allergy/AdvReac Type Severity Reaction Status Date / Time hydrocodone Allergy Rash Verified 11/02/19 00:45 shrimp Allergy itching, Verified 11/02/19 00:45 diarrhea, headche, GI codeine [Codeine] AdvReac Intermediate itching/abd Verified 11/02/19 00:45 pain - Social History Does the pt smoke?: No Smoking Status: Never smoker Does the pt drink ETOH?: No Does the pt have substance abuse?: No - Immunizations Immunizations are current?: Yes Immunizations: No immun - POLST Patient has POLST: No PD ED PE NORMAL - Vitals Vital signs reviewed: Yes - General General: Alert and oriented X 3, No acute distress - HEENT HEENT: PERRL - Neck Neck: Supple, no meningeal sign - Cardiac Cardiac: RRR - Respiratory Respiratory: Clear bilaterally - Abdomen Abdomen: Soft, Non tender, Non distended - Derm Derm: Warm and dry - Extremities Extremities: No deformity, Normal ROM s pain, No edema - Neuro Neuro: Alert and oriented X 3 - Psych Psych: Normal mood, Normal affect Results - Vitals Vitals: Vital Signs - 24 hr 11/02/19 11/02/19 00:45 04:14 Temperature 36.7 C Heart Rate 61 58 L Respiratory 16 14 Rate Blood Pressure 124/58 L 118/60 O2 Saturation 99 100 Oxygen O2 Source Room air - Labs Labs: Laboratory Tests 11/02/19 11/02/19 11/02/19 00:36 01:10 01:10 WBC 4.0 L RBC 3.99 L Hgb 10.6 L Hct 34.3 L MCV 86.0 MCH 26.6 L MCHC 30.9 L RDW 19.8 H Plt Count 342 MPV 10.9 H Neut # (Auto) 2.5 Lymph # (Auto) 1.1 L [place] # (Auto) 0.4 Eos # (Auto) 0.0 Baso # (Auto) 0.0 Absolute Nucleated RBC 0.00 Nucleated RBC % 0.0 D-Dimer Sodium 141 Potassium 3.8 Chloride 111 Carbon Dioxide 23 Anion Gap 7.0 BUN 11 Creatinine 0.6 Estimated GFR (MDRD) 116 Glucose 102 H Calcium 9.4 Total Bilirubin 0.4 AST 15 ALT 17 Alkaline Phosphatase 50 Total Creatine Kinase Troponin I High Sens Total Protein 7.1 Albumin 3.9 Globulin 3.2 Albumin/Globulin Ratio 1.2 Lipase 34 Urine Color YELLOW Urine Clarity CLEAR Urine pH 6.5 Ur Specific [place] 1.020 Urine Protein NEGATIVE Urine Glucose (UA) NEGATIVE Urine Ketones NEGATIVE Urine Occult Blood NEGATIVE Urine Nitrite NEGATIVE Urine Bilirubin NEGATIVE Urine Urobilinogen 0.2 (NORMAL) Ur Leukocyte Esterase NEGATIVE Ur Microscopic Review NOT INDICATED Urine Culture Comments NOT INDICATED Blood Type Antibody Screen 11/02/19 11/02/19 11/02/19 01:10 01:10 01:10 WBC RBC Hgb Hct MCV MCH MCHC RDW Plt Count MPV Neut # (Auto) Lymph # (Auto) [place] # (Auto) Eos # (Auto) Baso # (Auto) Absolute Nucleated RBC Nucleated RBC % D-Dimer 214.3 Sodium Potassium Chloride Carbon Dioxide Anion Gap BUN Creatinine Estimated GFR (MDRD) Glucose Calcium Total Bilirubin AST ALT Alkaline Phosphatase Total Creatine Kinase 29 Troponin I High Sens Total Protein Albumin Globulin Albumin/Globulin Ratio Lipase Urine Color Urine Clarity Urine pH Ur Specific [place] Urine Protein Urine Glucose (UA) Urine Ketones Urine Occult Blood Urine Nitrite Urine Bilirubin Urine Urobilinogen Ur Leukocyte Esterase Ur Microscopic Review Urine Culture Comments Blood Type O POSITIVE Antibody Screen NEGATIVE 11/02/19 01:10 WBC RBC Hgb Hct MCV MCH MCHC RDW Plt Count MPV Neut # (Auto) Lymph # (Auto) [place] # (Auto) Eos # (Auto) Baso # (Auto) Absolute Nucleated RBC Nucleated RBC % D-Dimer Sodium Potassium Chloride Carbon Dioxide Anion Gap BUN Creatinine Estimated GFR (MDRD) Glucose Calcium Total Bilirubin AST ALT Alkaline Phosphatase Total Creatine Kinase Troponin I High Sens < 2.3 L Total Protein Albumin Globulin Albumin/Globulin Ratio Lipase Urine Color Urine Clarity Urine pH Ur Specific [place] Urine Protein Urine Glucose (UA) Urine Ketones Urine Occult Blood Urine Nitrite Urine Bilirubin Urine Urobilinogen Ur Leukocyte Esterase Ur Microscopic Review Urine Culture Comments Blood Type Antibody Screen PD MEDICAL DECISION MAKING - ED course Complexity details: considered differential (Anemia, dysrhythmia, ACS, DVT, anxiety, electrolyte abnormality) ED course: On arrival patient is very well-appearing, her exam is unremarkable, she has no lower extremity edema or erythema. Her blood counts show a stable mild leukopenia, and a hemoglobin of 10.6, which is actually improved from her prior values. Her electrolytes are unremarkable. ACS is highly unlikely, however given patient's mild chest discomfort troponin was obtained and is undetectable. I highly doubt DVT given her bilateral calf discomfort without edema or redness, but d-dimer was obtained and is negative. CK also within normal range. Urine is negative. On repeat examination patient continues to be well- appearing, she has some mild muscle aching, for which she was given Toradol. I discussed the results of her studies and recommended that she continue to follow-up with her primary care provider. I also discussed return precautions with the patient, she is in agreement and was discharged home in the care of her . Departure - Departure Disposition: Home, Self Care Clinical Impression: Leg pain, bilateral Chest pain Qualifiers: Chest pain type: unspecified Qualified Code(s): R07.9 - Chest pain, unspecified Condition: Good Instructions: ED Chest Pain Atypical Unkn Cause Follow-Up: Jeff Mejía PA-C [Primary Care Provider] - Within 1 week Comments: You were seen today due to concern for anemia. Your hemoglobin is stable, and you do not need a transfusion today. I do not see signs of blood clot in your legs, Or signs of strain on your heart. Please follow-up with your primary care provider. If you have new or worsening symptoms, return to the emergency department Discharge Date/Time: 11/02/19 04:15
[2019-11-02] MEDS: ACETAMINOPHEN 325 MG TABLET PO STA (03:35)
[2019-11-02] MEDS: KETOROLAC 30 MG/ML VIAL IVP STA (04:08)
[2019-11-02 04:15] VITALS: BP 118/60
== END 2019-11-02 04:15 | disposition home or self-care (01) ==
LOC: ED 00:37
DX: M79.662 Pain in left lower leg (principal); M79.661 Pain in right lower leg; R07.89 Other chest pain
CPT/HCPCS: 36415; 80053; 81003; 82550; 83690; 84484; 85025; 85379; 86850; 86900; 86901; 96374; 99283; 99284; A9270; 81001; 87086

== ENCOUNTER 2019-12-14 16:29 | Emergency (ER) | payer SELFPAY ==
[2019-12-14] MEDS ORDERED: SODIUM CHLORIDE 0.9% 1,000 ML IV STA (16:51)
[2019-12-14] MEDS ORDERED: ONDANSETRON 4 MG/2 ML VIAL IVP STA (16:51)
[2019-12-14 17:09] LABS: BASOPHILS % (AUTO) 0.7 %; EOSINOPHILS % (AUTO) 0.5 %; LYMPHOCYTES # (AUTO) 0.8 10^3/uL (1.5-3.5); LYMPHOCYTES % (AUTO) 20.8 %; MEAN CORPUSCULAR HEMOGLOBIN 22.5 pg (27.0-31.0); MEAN CORPUSCULAR HGB CONC 28.5 g/dL (32.0-36.0); MEAN CORPUSCULAR VOLUME 79.2 fL (81.0-99.0); MEAN PLATELET VOLUME 10.7 fL (7.9-10.8); MONOCYTES # (AUTO) 0.3 10^3/uL (0.0-1.0); MONOCYTES % (AUTO) 7.2 %; NEUTROPHILS # (AUTO) 2.8 10^3/uL (1.5-6.6); NEUTROPHILS % (AUTO) 70.6 %; PLT - PLATELET COUNT 245 10^3/uL (130-450); RED BLOOD COUNT 3.55 10^6/uL (4.20-5.40); RED CELL DISTRIBUTION WIDTH 18.1 % (12.0-15.0)
--- NOTE | 2019-12-14 17:10 | ED Physician Documentation ---
History of Present Illness - Stated complaint Stated Complaint: DIZZY - Chief complaint Chief Complaint: General - History obtained from History obtained from: Patient - History of Present Illness Timing: How many weeks ago (2) Pain level max: 3 Pain level now: 1 - Additonal information Additional information: 34-year-old female presents to the emergency department with nausea, vomiting and diarrhea for the past 3 to 4 days. She states she has not felt well for the last 2 weeks. Has a history of recurrent iron deficiency anemia secondary to heavy menstrual bleeding. She states that they are planning to remove her fibroids when her "blood counts become stable". She states that occasionally she feels lightheaded and dizzy. Still feeling nauseated today. Concerned that she may need blood transfusion. Sees her doctor on Wednesday about her iron infusions. 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 HEENT: None Psych: None Musculoskeletal: None Derm: None - Past Surgical History Past Surgical History: Yes /FIELD DIRECTOR: Dilation and currettage - Present Medications Home Medications: Ambulatory Orders Medication Instructions Recorded Confirmed Ondansetron Odt [Zofran] 4 mg TL Q6H PRN #10 tablet 06/03/19 10/03/19 Oxycodone HCl/Acetaminophen 1 - 2 each PO Q6H PRN #10 tablet 06/03/19 10/03/19 [Percocet 5-325 mg Tablet] - Allergies Allergies/Adverse Reactions: Allergies Allergy/AdvReac Type Severity Reaction Status Date / Time hydrocodone Allergy Rash Verified 12/14/19 16:46 shrimp Allergy itching, Verified 12/14/19 16:46 diarrhea, headche, GI codeine [Codeine] AdvReac Intermediate itching/abd Verified 12/14/19 16:46 pain - Social History Does the pt smoke?: No Smoking Status: Never smoker Does the pt drink ETOH?: No Does the pt have substance abuse?: No - Immunizations Immunizations are current?: Yes Immunizations: No immun - POLST Patient has POLST: No PD ED PE NORMAL - Vitals Vital signs reviewed: Yes - General General: Alert and oriented X 3, No acute distress - HEENT HEENT: Moist mucous membranes - Neck Neck: Supple, no meningeal sign - Cardiac Cardiac: RRR - Respiratory Respiratory: No respiratory distress, Clear bilaterally - Abdomen Abdomen: Soft, Non tender, Non distended - Back Back: No CVA TTP, No spinal TTP - Derm Derm: Warm and dry - Extremities Extremities: No edema - Neuro Neuro: Alert and oriented X 3 - Psych Psych: Normal mood, Normal affect Results - Vitals Vitals: Vital Signs - 24 hr 12/14/19 12/14/19 16:42 18:20 Temperature 37.0 C Heart Rate 67 72 Respiratory 16 16 Rate Blood Pressure 130/79 114/63 O2 Saturation 100 97 Oxygen O2 Source Room air - Labs Labs: Laboratory Tests 12/14/19 12/14/19 17:02 17:02 WBC 4.0 L RBC 3.55 L Hgb 8.0 L Hct 28.1 L MCV 79.2 L MCH 22.5 L MCHC 28.5 L RDW 18.1 H Plt Count 245 MPV 10.7 Neut # (Auto) 2.8 Lymph # (Auto) 0.8 L [place] # (Auto) 0.3 Eos # (Auto) 0.0 Baso # (Auto) 0.0 Absolute Nucleated RBC 0.00 Nucleated RBC % 0.0 Manual Slide Review Indicated Platelet Estimate NORMAL (130-450,000) Platelet Morphology NORMAL APPEARANCE RBC Morph Micro Appear 2+ HYPOCHROMASIA Sodium 139 Potassium 3.4 L Chloride 106 Carbon Dioxide 24 Anion Gap 9.0 BUN 9 Creatinine 0.5 Estimated GFR (MDRD) 143 Glucose 106 H Calcium 8.7 Total Bilirubin 0.4 AST 12 ALT < 10 L Alkaline Phosphatase 46 Total Protein 6.9 Albumin 3.9 Globulin 3.0 Albumin/Globulin Ratio 1.3 Lipase 34 PD MEDICAL DECISION MAKING - ED course Complexity details: reviewed results, re-evaluated patient, considered differential, d/w patient ED course: Patient is mildly anemic, but not significantly anemic compared to her past va lues. Does not meet transfusion criteria at the moment. No tachycardia or hypoxia. No difficulty breathing. She does feel better after IV fluids. I recommend that she follow-up with her doctor closely for another iron infusion. She [place] [facility] Tolerating p.o. without difficulty here. Patient counseled regarding signs and symptoms for which I believe and urgent re-evaluation would be necessary. Patient with good understanding of and agreement to plan and is comfortable going home at this time This document was made in part using voice recognition software. While efforts are made to proofread this document, sound alike and grammatical errors may occur. Departure - Departure Disposition: Home, Self Care Clinical Impression: Anemia Qualifiers: Anemia type: iron deficiency Iron deficiency anemia type: chronic blood loss Qualified Code(s): D50.0 - Iron deficiency anemia secondary to blood loss (chronic) Condition: Good Instructions: ED Anemia Iron Deficiency Follow-Up: Jeff Mejía PA-C [Credentialed Staff Provider] - Zeke Mcknight MD [Physician No Access] - Zeke Mcknight MD [Provider Admit Priv/Credential] - Jeff Mejía PA-C [Primary Care Provider] - Within 1 week Comments: It appears that you need another iron infusion. You are above the threshold for blood transfusion at this time. Contact your doctor tomorrow to get the iron infusion [place] [facility]. Return if you worsen
[2019-12-14 17:23] LABS: ALBUMIN 3.9 g/dL (3.2-5.5); ALBUMIN/GLOBULIN RATIO 1.3 (1.0-2.2); ALKALINE PHOSPHATASE 46 IU/L (42-121); ALT ALANINE AMINOTRANSFERASE < 10 IU/L (10-60); AST ASPARTATE AMINOTRANSFERASE 12 IU/L (10-42); BILIRUBIN,TOTAL 0.4 mg/dL (0.2-1.0); BUN - BLOOD UREA NITROGEN 9 mg/dL (6-20); CALCIUM 8.7 mg/dL (8.5-10.3); CARBON DIOXIDE - CO2 24 mmol/L (21-32); CHLORIDE 106 mmol/L (101-111); CREATININE 0.5 mg/dL (0.4-1.0); GFR - MDRD 143 (>89); GLUCOSE 106 mg/dL (70-100); LIPASE 34 U/L (22-51); SODIUM 139 mmol/L (135-145); TOTAL PROTEIN 6.9 g/dL (6.7-8.2)
[2019-12-14 17:49] LABS: PLATELET ESTIMATE, MANUAL NORMAL (130-450,000) (NORMAL); PLATELET MORPHOLOGY NORMAL APPEARANCE (NORMAL)
[2019-12-14 18:31] LABS: BILIRUBIN,URINE NEGATIVE (NEGATIVE); CLARITY,URINE CLEAR (CLEAR); GLUCOSE, URINE (UA) NEGATIVE (NEGATIVE); KETONES,URINE (UA) NEGATIVE (NEGATIVE); LEUKOCYTE ESTERASE, URINE NEGATIVE (NEGATIVE); NITRITE,URINE NEGATIVE (NEGATIVE); OCCULT BLOOD,URINE NEGATIVE (NEGATIVE); PH,URINE 6.5 PH (5.0-7.5); PROTEIN,URINE NEGATIVE (NEGATIVE); UROBILINOGEN,URINE 0.2 (NORMAL) E.U./dL (NORMAL)
[2019-12-14 18:47] VITALS: BP 108/69
== END 2019-12-14 18:46 | disposition home or self-care (01) ==
LOC: ED 16:29
DX: D50.0 Iron deficiency anemia secondary to blood loss (chronic) (principal); R11.2 Nausea with vomiting, unspecified; R19.7 Diarrhea, unspecified
CPT/HCPCS: 36415; 80053; 81001; 81003; 83690; 85025; 87086; 96361; 96374; 99284

== ENCOUNTER 2019-12-25 15:46 | Outpatient (CLI) | payer SELFPAY ==
[2019-12-25 16:08] LABS: ABSOLUTE RETICS # AUTO 0.055 10^6/uL (0.020-0.110); BASOPHILS % (AUTO) 0.9 %; EOSINOPHILS % (AUTO) 0.9 %; HGB - HEMOGLOBIN 7.2 g/dL (12.0-16.0); LYMPHOCYTES % (AUTO) 29.9 %; MEAN CORPUSCULAR HEMOGLOBIN 21.3 pg (27.0-31.0); MEAN CORPUSCULAR HGB CONC 27.7 g/dL (32.0-36.0); MEAN CORPUSCULAR VOLUME 76.9 fL (81.0-99.0); MONOCYTES # (AUTO) 0.2 10^3/uL (0.0-1.0); NEUTROPHILS % (AUTO) 60.7 %; PLT - PLATELET COUNT 262 10^3/uL (130-450); RED BLOOD COUNT 3.38 10^6/uL (4.20-5.40); RED CELL DISTRIBUTION WIDTH 18.7 % (12.0-15.0); WHITE BLOOD COUNT 3.3 x10^3/uL (4.8-10.8)
[2019-12-25 16:31] LABS: % IRON SATURATION 3 % (20-50); IRON 13 ug/dL (28-170); TOTAL IRON BINDING CAPACITY 392 ug/dL (250-450); TRANSFERRIN 280 mg/dL (192-382)
[2019-12-25 16:40] LABS: PLATELET ESTIMATE, MANUAL NORMAL (130-450,000) (NORMAL); PLATELET MORPHOLOGY NORMAL APPEARANCE (NORMAL)
[2019-12-25 16:48] LABS: FERRITIN 3.1 ng/mL (11.0-306.8)
[2019-12-25 16:53] LABS: FOLATE 19.67 ng/mL (5.90 - >24.8)
== END 2019-12-25 15:47 | disposition home or self-care (01) ==
LOC: LAB 15:46
PROVIDERS: ATTEND Physician Assistant Medical
DX: D64.9 Anemia, unspecified (principal)
CPT/HCPCS: 36415; 81599; 82607; 82728; 82746; 83021; 83540; 84466; 85014; 85018; 85025; 85041; 85045

== ENCOUNTER 2019-12-25 16:10 | Emergency (ER) | payer SELFPAY ==
[2019-12-25 17:09] LABS: ALBUMIN/GLOBULIN RATIO 1.4 (1.0-2.2); BILIRUBIN,TOTAL 0.4 mg/dL (0.2-1.0); CALCIUM 8.8 mg/dL (8.5-10.3); CREATININE 0.5 mg/dL (0.4-1.0); TOTAL PROTEIN 6.8 g/dL (6.7-8.2)
[2019-12-25 17:14] LABS: BILIRUBIN,URINE NEGATIVE (NEGATIVE); GLUCOSE, URINE (UA) NEGATIVE (NEGATIVE); KETONES,URINE (UA) NEGATIVE (NEGATIVE); LEUKOCYTE ESTERASE, URINE NEGATIVE (NEGATIVE); NITRITE,URINE NEGATIVE (NEGATIVE); OCCULT BLOOD,URINE NEGATIVE (NEGATIVE); PH,URINE 6.5 PH (5.0-7.5); PROTEIN,URINE NEGATIVE (NEGATIVE); UROBILINOGEN,URINE 0.2 (NORMAL) E.U./dL (NORMAL)
[2019-12-25 17:15] LABS: CLARITY,URINE CLEAR (CLEAR)
--- NOTE | 2019-12-25 17:16 | ED Physician Documentation ---
History of Present Illness - Stated complaint Stated Complaint: DIZZY,PRESTON, ABNORMAL LABS - Chief complaint Chief Complaint: General - Additonal information Additional information: This is a 34-year-old female with a history of uterine fibroids, with resultant heavy periods and dysmenorrhea, she has had blood loss anemia requiring transfusion on multiple occasions. She has been feeling a bit lightheaded for the last week or so, her PCP Jeff Mejía sent her to have blood counts drawn, and since [place] [facility] [place], she checked in the ED in case she needs a transfusion. She had a period that recently finished and lasted around 9 days, which is actually better than usual for her, they typically last around 12 days. She is no longer having bleeding. She denies syncope, no chest pain, no shortness of breath. As a secondary complaint patient has had a headache. This feels her typical headache. It is bifrontal, moderate in severity, has been going on for the last day or 2, but she has intermittently been having headaches for the last 2 weeks. It was gradual in onset, not associated with any focal weakness or numbness. No head trauma. Review of Systems Constitutional: denies: Fever Cardiac: denies: Chest pain / pressure Respiratory: denies: Dyspnea GI: denies: Abdominal Pain Skin: denies: Rash Neurologic: reports: Generalized weakness. 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 HEENT: None Psych: None Musculoskeletal: None Derm: None - Past Surgical History Past Surgical History: Yes /CHOIR LEADER: Dilation and currettage - Present Medications Home Medications: Ambulatory Orders Medication Instructions Recorded Confirmed Ondansetron Odt [Zofran] 4 mg TL Q6H PRN #10 tablet 06/03/19 10/03/19 Oxycodone HCl/Acetaminophen 1 - 2 each PO Q6H PRN #10 tablet 06/03/19 10/03/19 [Percocet 5-325 mg Tablet] Butalb/Acetaminophen/Caffeine 1 each PO BID PRN #10 capsule 12/25/19 [Fioricet 50-300-40 mg Capsule] - Allergies Allergies/Adverse Reactions: Allergies Allergy/AdvReac Type Severity Reaction Status Date / Time hydrocodone Allergy Rash Verified 12/25/19 16:21 shrimp Allergy itching, Verified 12/25/19 16:21 diarrhea, headche, GI codeine [Codeine] AdvReac Intermediate itching/abd Verified 12/25/19 16:21 pain - Social History Does the pt smoke?: No Smoking Status: Never smoker Does the pt drink ETOH?: No Does the pt have substance abuse?: No - Immunizations Immunizations are current?: Yes Immunizations: No immun - POLST Patient has POLST: No PD ED PE NORMAL - Vitals Vital signs reviewed: Yes - General General: Alert and oriented X 3, No acute distress - HEENT HEENT: PERRL - Neck Neck: Supple, no meningeal sign - Cardiac Cardiac: RRR - Respiratory Respiratory: Clear bilaterally - Abdomen Abdomen: Normal bowel sounds, Soft, Non tender, Non distended - Derm Derm: Warm and dry - Extremities Extremities: No deformity - Neuro Neuro: Alert and oriented X 3, food and beverage cashier 2-12 intact, No motor deficit, No sensory deficit, Normal speech, Other (Normal gait with no unsteadiness. Strength is excellent and symmetric.) - Psych Psych: Normal mood, Normal affect Results - Vitals Vitals: Vital Signs - 24 hr 12/25/19 12/25/19 12/25/19 16:21 17:33 17:46 Temperature 36.6 C 36.9 C Heart Rate 74 69 72 Respiratory 14 18 16 Rate Blood Pressure 115/53 L 105/70 115/80 O2 Saturation 100 100 98 Oxygen O2 Source Room air - EKG (time done) 16:54 Other comments: Other comments (Rate 69, rhythm sinus, there is no ST segment elevation or depression. There is some T wave flattening in the inferior leads. Intervals within normal limits) - Labs Labs: Laboratory Tests 12/25/19 12/25/19 12/25/19 16:02 16:02 17:00 Sodium 135 Potassium 3.6 Chloride 102 Carbon Dioxide 23 Anion Gap 10.0 BUN 9 Creatinine 0.5 Estimated GFR (MDRD) 143 Glucose 130 H Calcium 8.8 Total Bilirubin 0.4 AST 13 ALT 11 Alkaline Phosphatase 48 Total Protein 6.8 Albumin 4.0 Globulin 2.8 Albumin/Globulin Ratio 1.4 Lipase 26 HCG, Quant < 0.60 Urine Color YELLOW Urine Clarity CLEAR Urine pH 6.5 Ur Specific [place] <=1.005 Urine Protein NEGATIVE Urine Glucose (UA) NEGATIVE Urine Ketones NEGATIVE Urine Occult Blood NEGATIVE Urine Nitrite NEGATIVE Urine Bilirubin NEGATIVE Urine Urobilinogen 0.2 (NORMAL) Ur Leukocyte Esterase NEGATIVE Ur Microscopic Review NOT INDICATED Urine Culture Comments NOT INDICATED PD MEDICAL DECISION MAKING - ED course Complexity details: considered differential (Anemia, electrolyte abnormality, dysrhytyhmia, UTI, tension headache, migraine, ICH) ED course: Pt is very well appearing with unremarkable vital signs on evaluation. Labs received from her outpatient draw 1 hour ago, her hemoglobin is 7.2, most recent was 8. This is above the transfusion threshold, and she has normal vital signs. Though she does have some mild symptoms of lightheadedness, she is steady on her feet, not orthostatic, and I think that transfusing her at this level would be poor care, particularly given she is a high risk for multiple transfusions in the future - each transfusion is increasing her risk of complications. She is not having any active bleeding at this time, her menstruation is over and she has close outpatient follow up for repeat labs. Her EKG does not show any signs of dysrhythmia or ischemia, and her labs are unrevealing for another cause of her symptoms. Regarding her headache, she has no neurologic findings, it was gradual in onset and not associated with any red flags, it sounds benign and not consistent with acute intracranial pathology. I did give her a dose of Fioricet for her headache. I discussed the need for close PCP follow-up, reviewed return precautions, patient was discharged home in the care of her . Departure - Departure Disposition: 01 Home, Self Care Clinical Impression: Anemia Qualifiers: Anemia type: unspecified type Qualified Code(s): D64.9 - Anemia, unspecified Condition: Good Prescriptions: Butalb/Acetaminophen/Caffeine [Fioricet 50-300-40 mg Capsule] 1 each PO BID PRN #10 capsule PRN Reason: Headache Comments: Your hemoglobin/blood count level is 7.2 today. You do not appear to need a blood transfusion at this time. Please follow-up with your primary care provider for a recheck. If you are having heavy bleeding, passing out, feeling increasingly lightheaded, or having other symptoms, return to the emergency department. Discharge Date/Time: 12/25/19 17:45
[2019-12-25] MEDS ORDERED: BUTALB/ACETAM/CAFF 50/325/40MG TABLET PO STA (17:27)
[2019-12-25 17:47] VITALS: BP 115/80
== END 2019-12-25 17:45 | disposition home or self-care (01) ==
LOC: ED 16:10
DX: D64.9 Anemia, unspecified (principal)
CPT/HCPCS: 36415; 80053; 81003; 83690; 84702; 93005; 99283; 99284; A9270; 81001; 85025; 85610; 87086

== ENCOUNTER 2019-12-31 01:27 | Emergency (ER) | payer SELFPAY ==
--- NOTE | 2019-12-31 01:56 | ED Physician Documentation ---
History of Present Illness - Stated complaint Stated Complaint: FAST HEART/SOA - Chief complaint Chief Complaint: General - Additonal information Additional information: This is a 34-year-old female who is known to me, she has a history of anemia secondary to heavy menstruation from fibroids, she has needed multiple transfusions in the past. She presents today with some palpitations, she also had some intermittent left-sided discomfort And she also had a feeling of her jaw locking. She states this began after iron transfusion, she did not get the Benadryl and Tylenol that she normally gets during the transfusion this evening she began to have more palpitations so she decided to come into the emergency department. Currently she has no chest pain or shortness of breath. She states that her jaw feels a bit tight, but she is able to open and close it completely at this time. She denies any known cardiac history. No passing out. No cough, no fever, no hemoptysis, no history of blood clots. No leg swelling. 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 : None HEENT: None Psych: None Musculoskeletal: None Derm: None - Past Surgical History Past Surgical History: Yes /METAL REED TUNER: Dilation and currettage - Present Medications Home Medications: Ambulatory Orders Medication Instructions Recorded Confirmed Ferrous Gluconate [Iron] 240 mg PO DAILY 12/31/19 12/31/19 Pnv No.95/Ferrous Fum/Folic AC 1 tab PO DAILY 12/31/19 12/31/19 [ Vitamins Tablet] - Allergies Allergies/Adverse Reactions: Allergies Allergy/AdvReac Type Severity Reaction Status Date / Time hydrocodone Allergy Rash Verified 12/29/19 15:20 shrimp Allergy itching, Verified 12/29/19 15:20 diarrhea, headche, GI codeine [Codeine] AdvReac Intermediate itching/abd Verified 12/29/19 15:20 pain - Social History Does the pt smoke?: No Smoking Status: Never smoker Does the pt drink ETOH?: No Does the pt have substance abuse?: No - Immunizations Immunizations are current?: Yes Immunizations: No immun - POLST Patient has POLST: No PD ED PE NORMAL - Vitals Vital signs reviewed: Yes - General General: Alert and oriented X 3, No acute distress - HEENT HEENT: PERRL, Other (Full range of motion of jaw patient is able to open her jaw very widely, with no discomfort or issue whatsoever. Full range of motion of her neck. No masses, swelling, or skin changes.) - Neck Neck: Supple, no meningeal sign - Cardiac Cardiac: RRR, No murmur - Respiratory Respiratory: Clear bilaterally - Abdomen Abdomen: Normal bowel sounds, Soft, Non tender, Non distended - Derm Derm: Warm and dry - Extremities Extremities: No deformity - Neuro Neuro: Alert and oriented X 3, mechanical engineering advisor 2-12 intact, No motor deficit, No sensory deficit, Normal speech - Psych Psych: Normal mood, Normal affect Results - Vitals Vitals: Vital Signs - 24 hr 12/31/19 12/31/19 12/31/19 03:19 04:12 04:17 Temperature 36.8 C 37.1 C Heart Rate 64 61 65 Respiratory 18 14 23 Rate Blood Pressure 103/66 112/52 L 136/67 H O2 Saturation 97 12/31/19 12/31/19 12/31/19 04:32 04:50 05:10 Temperature 36.9 C 36.9 C 36.6 C Heart Rate 61 63 63 Respiratory 21 19 21 Rate Blood Pressure 122/79 126/74 110/63 O2 Saturation 99 12/31/19 12/31/19 12/31/19 05:29 05:30 05:53 Temperature 36.6 C 36.6 C 36.7 C Heart Rate 60 60 72 Respiratory 21 20 16 Rate Blood Pressure 110/63 107/68 115/67 O2 Saturation 98 99 Oxygen O2 Source Room air - EKG (time done) 2:05 Other comments: Other comments (Rate 57, rhythm sinus, there is no ST segment elevation or depression, no abnormal T wave inversions. Intervals within normal limits.) - Labs Labs: Laboratory Tests 12/31/19 12/31/19 12/31/19 02:15 02:15 02:15 WBC 4.6 L RBC 3.19 L Hgb 6.9 L* Hct 24.5 L MCV 76.8 L MCH 21.6 L MCHC 28.2 L RDW 18.8 H Plt Count 256 MPV 10.4 Neut # (Auto) 2.6 Lymph # (Auto) 1.4 L [place] # (Auto) 0.5 Eos # (Auto) 0.1 Baso # (Auto) 0.1 Absolute Nucleated RBC 0.07 Nucleated RBC % 1.5 Sodium 140 Potassium 3.4 L Chloride 107 Carbon Dioxide 23 Anion Gap 10.0 BUN 9 Creatinine 0.6 Estimated GFR (MDRD) 116 Glucose 109 H Calcium 8.8 Troponin I High Sens < 2.3 L Serum HCG, Qual Blood Type Antibody Screen Crossmatch IS Only 12/31/19 12/31/19 02:15 02:40 WBC RBC Hgb Hct MCV MCH MCHC RDW Plt Count MPV Neut # (Auto) Lymph # (Auto) [place] # (Auto) Eos # (Auto) Baso # (Auto) Absolute Nucleated RBC Nucleated RBC % Sodium Potassium Chloride Carbon Dioxide Anion Gap BUN Creatinine Estimated GFR (MDRD) Glucose Calcium Troponin I High Sens Serum HCG, Qual NEGATIVE Blood Type O POSITIVE Antibody Screen NEGATIVE Crossmatch IS Only See Detail - Rads (name of study) CXR Radiology: Other (Small lung volumes, small right basilar opacity probably atelectasis.) PD MEDICAL DECISION MAKING - ED course Complexity details: considered differential (ACS, pneumonia, pneumothorax, dysrhythmia,, electrolyte abnormality) ED course: Patient is well-appearing with unremarkable vital signs and unremarkable phy sical exam. EKG shows no acute ischemia or dysrhythmia, and high-sensitivity troponin is also negative. Her chest x-ray shows no acute cardiopulmonary abnormality, I do not see an emergent cardiopulmonary cause of her chest discomfort, which sounds overall benign. She has very few cardiac risk factors. No signs of DVT, the intermittent nature of her discomfort and her normal vital signs make pulmonary embolism extremely unlikely Her labs do reveal hemoglobin of 6.9. This is slightly lower than the transfusion threshold and since she has having symptoms after discussion with the patient the risks and benefits of transfusion we elected to transfuse. She was given 1 unit of packed red blood cells and afterwards is feeling much better, she is asymptomatic and no longer having palpitations. She will follow- up with her primary care provider for further testing and for repeat blood draw. I discussed return precautions, patient agreed and was discharged home in the care of her . Departure - Departure Disposition: 01 Home, Self Care Clinical Impression: Anemia Qualifiers: Anemia type: unspecified type Qualified Code(s): D64.9 - Anemia, unspecified Condition: Good Follow-Up: Jeff Mejía PA-C [Primary Care Provider] - Comments: We gave you transfusion today because your hemoglobin was 6.9. Please follow-up with your primary care provider in the next week for recheck. If you are having any new or worsening symptoms such as difficulty breathing, chest pain, passing out, return to the emergency department. Discharge Date/Time: 12/31/19 05:56
[2019-12-31 02:23] LABS: BASOPHILS # (AUTO) 0.1 10^3/uL (0.0-0.1); BASOPHILS % (AUTO) 1.1 %; EOSINOPHILS # (AUTO) 0.1 10^3/uL (0.0-0.7); EOSINOPHILS % (AUTO) 1.5 %; LYMPHOCYTES # (AUTO) 1.4 10^3/uL (1.5-3.5); LYMPHOCYTES % (AUTO) 30.3 %; MEAN CORPUSCULAR HEMOGLOBIN 21.6 pg (27.0-31.0); MEAN CORPUSCULAR HGB CONC 28.2 g/dL (32.0-36.0); MEAN CORPUSCULAR VOLUME 76.8 fL (81.0-99.0); MEAN PLATELET VOLUME 10.4 fL (7.9-10.8); MONOCYTES # (AUTO) 0.5 10^3/uL (0.0-1.0); NEUTROPHILS # (AUTO) 2.6 10^3/uL (1.5-6.6); NEUTROPHILS % (AUTO) 55.8 %; PLT - PLATELET COUNT 256 10^3/uL (130-450); RED BLOOD COUNT 3.19 10^6/uL (4.20-5.40); RED CELL DISTRIBUTION WIDTH 18.8 % (12.0-15.0); WHITE BLOOD COUNT 4.6 x10^3/uL (4.8-10.8)
[2019-12-31 02:26] LABS: HGB - HEMOGLOBIN 6.9 g/dL (12.0-16.0)
[2019-12-31 02:31] LABS: CALCIUM 8.8 mg/dL (8.5-10.3); CREATININE 0.6 mg/dL (0.4-1.0)
[2019-12-31 02:47] LABS: HCG,QUALITATIVE BLOOD NEGATIVE
--- NOTE | 2019-12-31 02:59 | XRAY Report ---
Reason: L chest pain Procedure Date: 12/31/2019 Accession Number: [id number] / [id number] Procedure: XR - Chest 1 View X-Ray CPT Code: 13048 Final Report FULL RESULT: EXAM: CHEST RADIOGRAPHY EXAM DATE: 12/31/2019 02:30 AM. CLINICAL HISTORY: Left-sided chest pain. COMPARISON: CHEST 2 VIEW 01/04/2019 1:25 PM CHEST 2 VIEW PA/LAT 12/31/2016 4:38 PM CHEST 1 VIEW 06/06/2014 5:47 PM. TECHNIQUE: 1 view. FINDINGS: Lungs/Pleura: Lung volumes are small. There is small right basilar opacity. No significant effusion or definite pneumothorax. Mediastinum: Within exam limitations, the cardiomediastinal contour is normal. Other: None. IMPRESSION: Small lung volumes. Small right basilar opacity, probably atelectasis. Aspiration or infection difficult to exclude. RADIA
[2019-12-31] MEDS ORDERED: diphenhydrAMINE INJ 50 MG/ML VIAL IVP STA (04:04)
[2019-12-31] MEDS ORDERED: ACETAMINOPHEN 325 MG TABLET PO STA (04:04)
[2019-12-31 05:54] VITALS: BP 115/67
== END 2019-12-31 05:56 | disposition home or self-care (01) ==
LOC: ED 01:27
DX: D64.9 Anemia, unspecified (principal); R00.2 Palpitations; R07.9 Chest pain, unspecified
CPT/HCPCS: 36415; 36430; 71045; 80048; 84484; 84703; 85025; 86850; 86900; 86901; 86920; 93005; 96374; 99284; 99285; A9270; J1200; P9016

== ENCOUNTER 2020-03-18 13:59 | Outpatient (CLI) | payer SELFPAY ==
[2020-03-18 17:54] LABS: HGB - HEMOGLOBIN 9.2 g/dL (12.0-16.0); LYMPHOCYTES # (AUTO) 0.9 10^3/uL (1.5-3.5); LYMPHOCYTES % (AUTO) 30.3 %; MEAN CORPUSCULAR HEMOGLOBIN 22.5 pg (27.0-31.0); MEAN CORPUSCULAR HGB CONC 27.7 g/dL (32.0-36.0); MEAN CORPUSCULAR VOLUME 81.2 fL (81.0-99.0); MEAN PLATELET VOLUME 11.2 fL (7.9-10.8); MONOCYTES # (AUTO) 0.3 10^3/uL (0.0-1.0); MONOCYTES % (AUTO) 9.4 %; NEUTROPHILS # (AUTO) 1.8 10^3/uL (1.5-6.6); PLT - PLATELET COUNT 258 10^3/uL (130-450); RED BLOOD COUNT 4.09 10^6/uL (4.20-5.40); RED CELL DISTRIBUTION WIDTH 17.2 % (12.0-15.0); WHITE BLOOD COUNT 3.1 x10^3/uL (4.8-10.8)
[2020-03-18 18:19] LABS: % IRON SATURATION 3 % (20-50); IRON 11 ug/dL (28-170); TOTAL IRON BINDING CAPACITY 398 ug/dL (250-450); TRANSFERRIN 284 mg/dL (192-382)
[2020-03-18 18:51] LABS: PLATELET ESTIMATE, MANUAL NORMAL (130-450,000) (NORMAL); PLATELET MORPHOLOGY 1+ LARGE PLATELETS (NORMAL)
== END 2020-03-18 23:59 | disposition home or self-care (01) ==
LOC: LAB.WCP 13:59
PROVIDERS: ATTEND Physician Assistant Medical
DX: D64.9 Anemia, unspecified (principal)
CPT/HCPCS: 36415; 82728; 83540; 84466; 85025

== ENCOUNTER 2020-04-07 23:02 | Observation (INO) | payer SELFPAY ==
--- NOTE | 2020-04-08 00:11 | ED Physician Documentation ---
History of Present Illness - Stated complaint Stated Complaint: CP/DIZZY/BODY PX - Chief complaint Chief Complaint: Neuro - History obtained from History obtained from: Patient - History of Present Illness Timing: How many days ago (2-3) Improved by: rest Worsened by: exertion, standing - Additonal information Additional information: c/o few days of gradual onset, gradually worsening lightheadedness, dyspnea, chest discomfort, PRESTON. She says these symptoms have typically been associated with her anemia when the h/h are particularly low. She has h/o iron-deficiency anemia, and her h/h worsens when she is having particularly heavy menses (which she is currently having). Review of Systems Constitutional: reports: Fatigue. denies: Fever, Chills, Sweats Cardiac: reports: Chest pain / pressure. denies: Palpitations Respiratory: reports: Dyspnea (mild CAAL). 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 : None HEENT: None Psych: None Musculoskeletal: None Derm: None - Past Surgical History Past Surgical History: Yes /SURVEY MANAGER: Dilation and currettage - Present Medications Home Medications: Ambulatory Orders Medication Instructions Recorded Confirmed Ferrous Gluconate [Iron] 240 mg PO DAILY 12/31/19 04/07/20 Pnv No.95/Ferrous Fum/Folic AC 1 tab PO DAILY 12/31/19 04/07/20 [ Vitamins Tablet] l-Norgest/E.estradiol-E.estrad 1 each PO DAILY 04/08/20 04/08/20 [Loseasonique Tablet] - Allergies Allergies/Adverse Reactions: Allergies Allergy/AdvReac Type Severity Reaction Status Date / Time hydrocodone Allergy Rash Verified 04/07/20 23:17 shrimp Allergy itching, Verified 04/07/20 23:17 diarrhea, headche, GI codeine [Codeine] AdvReac Intermediate itching/abd Verified 04/07/20 23:17 pain - Social History Does the pt smoke?: No Smoking Status: Never smoker Does the pt drink ETOH?: No Does the pt have substance abuse?: No - Immunizations Immunizations are current?: Yes Immunizations: No immun - POLST Patient has POLST: No PD ED PE NORMAL - Vitals Vital signs reviewed: Yes - General General: Alert and oriented X 3, No acute distress, Well developed/nourished - HEENT HEENT: Moist mucous membranes - Cardiac Cardiac: RRR, No murmur - Respiratory Respiratory: No respiratory distress, Clear bilaterally - Abdomen Abdomen: Soft, Non tender PD ED PE EXPANDED - Derm Derm: Pale Results - Vitals Vitals: Vital Signs - 24 hr 04/07/20 04/08/20 23:13 00:24 Temperature 37 C Heart Rate 77 58 L Respiratory 18 17 Rate Blood Pressure 134/67 H 133/65 H O2 Saturation 100 100 Oxygen O2 Source Room air - Labs Labs: Laboratory Tests 04/08/20 04/08/20 04/08/20 00:11 00:15 00:15 WBC 3.7 L RBC 3.07 L Hgb 6.7 L* Hct 23.3 L MCV 75.9 L MCH 21.8 L MCHC 28.8 L RDW 17.0 H Plt Count 312 MPV 10.6 Neut # (Auto) Not Reportable Lymph # (Auto) Not Reportable Nolan # (Auto) Not Reportable Eos # (Auto) Not Reportable Baso # (Auto) Not Reportable Absolute Nucleated RBC Not Reportable Total Counted 100 Band Neuts % (Manual) 0 Abnorm Lymph % (Manual) 0 Myelocytes % 1 H Nucleated RBC % Not Reportable Neutrophils # (Manual) 2.0 Lymphocytes # (Manual) 1.4 L Monocytes # (Manual) 0.3 Eosinophils # (Manual) 0.0 Basophils # (Manual) 0.0 Differential Comment MANUAL DIFFERENTIAL WBC Morphology NORMAL APPEARANCE Platelet Estimate NORMAL (130-450,000) Platelet Morphology NORMAL APPEARANCE RBC Morph Micro Appear 3+ HYPOCHROMASIA Sodium 140 Potassium 3.7 Chloride 109 Carbon Dioxide 24 Anion Gap 7.0 BUN 10 Creatinine 0.6 Estimated GFR (MDRD) 116 Glucose 113 H Calcium 9.4 Urine Color YELLOW Urine Clarity CLEAR Urine pH 5.5 Ur Specific [place] 1.010 Urine Protein NEGATIVE Urine Glucose (UA) NEGATIVE Urine Ketones NEGATIVE Urine Occult Blood MODERATE H Urine Nitrite NEGATIVE Urine Bilirubin NEGATIVE Urine Urobilinogen 0.2 (NORMAL) Ur Leukocyte Esterase NEGATIVE Urine RBC 0-5 Urine WBC 0-3 Ur Squamous Epith Cells RARE Squamous Urine Bacteria None Seen Ur Microscopic Review INDICATED Urine Culture Comments NOT INDICATED Urine HCG, Qual NEGATIVE Blood Type Antibody Screen Crossmatch IS Only 04/08/20 01:02 WBC RBC Hgb Hct MCV MCH MCHC RDW Plt Count MPV Neut # (Auto) Lymph # (Auto) Nolan # (Auto) Eos # (Auto) Baso # (Auto) Absolute Nucleated RBC Total Counted Band Neuts % (Manual) Abnorm Lymph % (Manual) Myelocytes % Nucleated RBC % Neutrophils # (Manual) Lymphocytes # (Manual) Monocytes # (Manual) Eosinophils # (Manual) Basophils # (Manual) Differential Comment WBC Morphology Platelet Estimate Platelet Morphology RBC Morph Micro Appear Sodium Potassium Chloride Carbon Dioxide Anion Gap BUN Creatinine Estimated GFR (MDRD) Glucose Calcium Urine Color Urine Clarity Urine pH Ur Specific [place] Urine Protein Urine Glucose (UA) Urine Ketones Urine Occult Blood Urine Nitrite Urine Bilirubin Urine Urobilinogen Ur Leukocyte Esterase Urine RBC Urine WBC Ur Squamous Epith Cells Urine Bacteria Ur Microscopic Review Urine Culture Comments Urine HCG, Qual Blood Type O POSITIVE Antibody Screen NEGATIVE Crossmatch IS Only See Detail PD MEDICAL DECISION MAKING - ED course Complexity details: reviewed old records, reviewed results, re-evaluated patient, considered differential, d/w patient ED course: patient has acute on chronic anemia, with h/h lower than most of her previous visits that required RBC transfusions. Additionally, she has significant symptoms and became lightheaded even with standing up at bedside to use bathroom. d/w hospitalist and plan is admission for RBC transfusions until she is stable for discharge Departure - Departure Disposition: ED Place in Observation Clinical Impression: Anemia Qualifiers: Anemia type: unspecified type Qualified Code(s): D64.9 - Anemia, unspecified Condition: Stable Discharge Date/Time: 04/08/20 02:20
[2020-04-08 00:20] LABS: BILIRUBIN,URINE NEGATIVE (NEGATIVE); CLARITY,URINE CLEAR (CLEAR); GLUCOSE, URINE (UA) NEGATIVE (NEGATIVE); KETONES,URINE (UA) NEGATIVE (NEGATIVE); LEUKOCYTE ESTERASE, URINE NEGATIVE (NEGATIVE); NITRITE,URINE NEGATIVE (NEGATIVE); OCCULT BLOOD,URINE MODERATE (NEGATIVE); PH,URINE 5.5 PH (5.0-7.5); PROTEIN,URINE NEGATIVE (NEGATIVE); UROBILINOGEN,URINE 0.2 (NORMAL) E.U./dL (NORMAL)
[2020-04-08 00:23] LABS: HCG UR QUAL NEGATIVE
[2020-04-08 00:28] LABS: BASOPHILS % (AUTO) 0.8 %; EOSINOPHILS % (AUTO) 0.8 %; LYMPHOCYTES % (AUTO) 37.1 %; MEAN CORPUSCULAR HEMOGLOBIN 21.8 pg (27.0-31.0); MEAN CORPUSCULAR HGB CONC 28.8 g/dL (32.0-36.0); MEAN CORPUSCULAR VOLUME 75.9 fL (81.0-99.0); MEAN PLATELET VOLUME 10.6 fL (7.9-10.8); MONOCYTES % (AUTO) 10.6 %; NEUTROPHILS % (AUTO) 50.7 %; PLT - PLATELET COUNT 312 10^3/uL (130-450); RED BLOOD COUNT 3.07 10^6/uL (4.20-5.40); WHITE BLOOD COUNT 3.7 x10^3/uL (4.8-10.8)
[2020-04-08 00:32] LABS: HGB - HEMOGLOBIN 6.7 g/dL (12.0-16.0)
[2020-04-08 00:34] LABS: ABNORMAL LYMPHS % (MANUAL) 0 %; BAND NEUTROPHILS % (MANUAL) 0 %; CALCIUM 9.4 mg/dL (8.5-10.3); CREATININE 0.6 mg/dL (0.4-1.0)
[2020-04-08 00:40] LABS: BACTERIA,URINE None Seen /HPF (None Seen); RBC,URINE 0-5 /HPF (0-5); SQUAMOUS EPITHELIAL CELL,UR RARE Squamous (<= Few)
[2020-04-08] MEDS ORDERED: diphenhydrAMINE 25 MG CAPSULE PO STA (00:53)
[2020-04-08] MEDS ORDERED: ACETAMINOPHEN 325 MG TABLET PO STA (00:53)
[2020-04-08 01:04] LABS: BASOPHILS % (MANUAL) 1 %; LYMPHOCYTES # (MANUAL) 1.4 10^3/uL (1.5-3.5); LYMPHOCYTES % (MANUAL) 37 %; MONOCYTES # (MANUAL) 0.3 10^3/uL (0.0-1.0); MYELOCYTES % (MANUAL) 1 %
[2020-04-08 01:05] LABS: DIFFERENTIAL COMMENT MANUAL DIFFERENTIAL; PLATELET ESTIMATE, MANUAL NORMAL (130-450,000) (NORMAL); PLATELET MORPHOLOGY NORMAL APPEARANCE (NORMAL)
[2020-04-08] MEDS ORDERED: ONDANSETRON ODT 4 MG TABLET TL PRN (01:19)
[2020-04-08] MEDS ORDERED: ACETAMINOPHEN 325 MG TABLET PO PRN (01:19)
[2020-04-08] MEDS ORDERED: IBUPROFEN 600 MG TABLET PO PRN (01:19)
--- NOTE | 2020-04-08 01:26 | HISTORY & PHYSICAL EXAMINATION ---
Chief Complaint - Chief Complaint Chief Complaint: Fatigue History of Present Illness - Admitted From Admitted From:: Emergency department - History Obtained From Records Reviewed: Emergency department History obtained from: Patient, and Dr. Sneed, ED physician Exam Limitations: None - History of Present Illness HPI Comment/Other: Patient radha 34-year-old female who has a known history of chronic anemia with recurrent exacerbations resulting in acute blood loss anemia in the setting of menstruation. 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 This last occurred approximately 6 months ago. She typically requires anywhere between 2 to 3 units of PRBCs after which she symptomatically feels much better and is able to go home. On this occasion, patient started feeling unwell yesterday, complaints of fatigue, also bilateral leg cramping, as well as chest pain, arm pain, neck and shoulder pain. All of the symptoms have occurred with each occurrence of her acute blood loss anemia and she feels like her symptoms are exactly as they have been in the past with no changes. With the exception of her current menstruation, patient denies any other source of blood loss. Her vital signs have been within normal limits.In the ED, 2 units of PRBCs were ordered an observation bed was requested to allow the patient to have further monitoring post transfusion with likely expectation of discharge later in the morning. 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 - Substance History Use: Uses substance without health or social issues: NONE - POLST Patient has POLST: No POLST Status: Full Code Meds/Allgy - Home Medications Home Medications: Ambulatory Orders Medication Instructions Recorded Confirmed Ferrous Gluconate [Iron] 240 mg PO DAILY 12/31/19 04/07/20 Pnv No.95/Ferrous Fum/Folic AC 1 tab PO DAILY 12/31/19 04/07/20 [ Vitamins Tablet] - Allergies Allergies/Adverse Reactions: Allergies Allergy/AdvReac Type Severity Reaction Status Date / Time hydrocodone Allergy Rash Verified 04/07/20 23:17 shrimp Allergy itching, Verified 04/07/20 23:17 diarrhea, headche, GI codeine [Codeine] AdvReac Intermediate itching/abd Verified 04/07/20 23:17 pain Review of Systems - Constitutional Constitutional: reports: Fatigue, Weakness. denies: Chills - Cardiovascular Cariovascular: reports: Chest pain, Lightheadedness. denies: Irregular heart rate, Palpitations, Syncope, Exertional dyspnea - Respiratory Respiratory: denies: SOB at rest, SOB with exertion - Gastrointestinal Gastrointestinal: denies: Abdominal pain, Constipation, Diarrhea, Change in bowel habits, Rectal bleeding - Genitourinary Genitourinary: denies: Dysuria, Hematuria - Musculoskeletal Musculoskeletal: reports: Other (Bilateral leg Cramp) - Integumentary Integumentary: reports: Rash (Was stung by a bee yesterday on the left forearm) - Neurological Neurological: reports: General weakness - All Other Systems All Other Systems: reports: Reviewed and negative Prior Level of Functionality: Fully independent Exam - Vital Signs Reviewed Vital Signs: Yes Vital Signs: Vital Signs x48h Temp Pulse Resp BP Pulse Ox 04/08/20 00:24 58 L 17 133/65 H 100 04/07/20 23:13 37 C 77 18 134/67 H 100 - Physical Exam General Appearance: positive: No acute distress, Other (Mild generalized pallor) Eyes Bilateral: positive: Normal inspection ENT: positive: ENT inspection nml Neck: positive: Nml inspection Respiratory: positive: Chest non-tender, No respiratory distress, Breath sounds nml Cardiovascular: positive: Regular rate & rhythm, No murmur Peripheral Pulses: positive: 2+ Abdomen: positive: Non-tender, No organomegaly, Nml bowel sounds Skin: positive: Pallor Extremities: positive: No pedal edema, Other (No calf tenderness bilaterally). negative: Yandel's sign/cords Neurologic/Psychiatric: positive: Oriented x3 Sepsis Event Note (H) - Evaluation Current Stage of Sepsis: Ruled out Conclusion/Plan - Problem List (1) Acute on chronic blood loss anemia Conclusion/Plan: Patient has a known history of chronic anemia. This is further exacerbated by menstruation resulting in the current presentation of acute on chronic blood loss anemia. Patient will be placed in observation and will have 2 units of PRBCs for now to start with, followed by a CBC and dependent upon patient's symptom burden and lab results, likely to be discharged home later this morning after 2 units, possibly 3 units if necessary.Further work-up to be followed by hematology oncology. (2) Chest pain Conclusion/Plan: Patient does have some chest pain upon presenting to the ED which has since improved given that she has been resting in bed but is not completely been eliminated. Given that the patient has experienced this several times before in association with the acute blood loss anemia, and the lack of other risk factors for coronary artery disease, including female sex, young age, no smoking, etc., will defer any further cardiac work-up unless clinically indicated or unless pain persists after transfusion. Qualifiers: Chest pain type: unspecified Qualified Code(s): R07.9 - Chest pain, unspecified - Lab Results Lab results reviewed: Yes Fish Bones: 04/08/20 00:15 04/08/20 00:15 Core Measures - Anticipated LOS I expect patient to be DC'd or transferred within 96 hours.: Yes - DVT/VTE - Prophylaxis VTE/DVT Device ordered at admit?: Yes
[2020-04-08] MEDS ORDERED: SODIUM CHLORIDE 0.9% 500 ML ONE (02:59)
[2020-04-08] MEDS: SODIUM CHLORIDE FLUSH 0.9% 10 ML SYRINGE IVP PRN ×2 (03:18→05:57)
[2020-04-08] MEDS: HYDROCORTISONE 1% CREAM 28 GM TUBE TOP SCH ×2 (03:56→09:00)
--- NOTE | 2020-04-08 08:24 | PHARMACY PROGRESS NOTE ---
- Best Possible Medication History Admit Date and Time: 04/08/20 0119 Processed by: Pharmacy Medication History completed: Yes Secondary Source(s): Physician records, Pharmacy records As the person ultimately responsible for medication therapy, providers are able to order a medication from an existing home medication list in [facility] via the "Reconcile Routine" prior to Confirmation of that medication by network desktop support specialist. Such practice is discouraged except when the physician, in their clinical judgment, deems that a medical need exists for a medication without regard to previous use.
[2020-04-08 08:26] VITALS: BP 96/48
[2020-04-08] MEDS ORDERED: SODIUM CHLORIDE FLUSH 0.9% 10 ML SYRINGE IVP SCH (09:00)
[2020-04-08 09:13] LABS: HGB - HEMOGLOBIN 8.3 g/dL (12.0-16.0); MEAN CORPUSCULAR HEMOGLOBIN 24.8 pg (27.0-31.0); MEAN CORPUSCULAR HGB CONC 31.3 g/dL (32.0-36.0); MEAN CORPUSCULAR VOLUME 79.1 fL (81.0-99.0); MEAN PLATELET VOLUME 9.8 fL (7.9-10.8); RED BLOOD COUNT 3.35 10^6/uL (4.20-5.40); WHITE BLOOD COUNT 2.9 x10^3/uL (4.8-10.8)
--- NOTE | 2020-04-08 10:23 | Discharge Plan ---
Discharge Plan Problem Reviewed?: Yes Disposition: Home, Self Care Condition: Stable Diet: Regular Activity Restrictions: Activity as Tolerated Shower Restrictions: No Driving Restrictions: No Instruction Topics: Anemia Health Concerns: You were seen in the hospital because you had anemia due to your heavy menstrual cycle. You were given 2 units of blood with improvement in your symptoms and your blood counts improved to 8.3 from 6.7. Plan of Treatment: Please have your blood counts checked in 2 days. If you develop worsening symptoms or heavy bleeding and you feel like your blood counts are low again, please return to the emergency department or call your primary care provider. You may also contact the [facility] clinic as you usually do to receive a transfusion there if need be. Assessment: The patient expressed understanding of the treatment plan. No Smoking: If you smoke, Please STOP! Call for help. Follow-up with: Jeff Mejía PA-C [Primary Care Provider] -
--- NOTE | 2020-04-08 10:24 | DISCHARGE SUMMARY ---
"Discharge Summary Admit Date: 04/08/20 Discharge Date: 04/08/20 Discharging Provider: Valente Last Primary Care Provider: Jeff Mejía Condition at Discharge: Stable Discharge Disposition: 01 Home, Self Care - DIAGNOSES Admission Diagnoses: Acute on chronic blood loss anemia Chest pain Discharge Diagnoses with Status of Each Condition: Acute on chronic blood loss anemia - stable. Chest pain - resolved. - HPI History of Present Illness: H&P per Dr. Linton: Patient is a 34-year-old female who has a known history of chronic anemia with recurrent exacerbations resulting in acute blood loss anemia in the setting of menstruation. 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 This last occurred approximately 6 months ago. She typically requires anywhere between 2 to 3 units of PRBCs after which she symptomatically feels much better and is able to go home. On this occasion, patient started feeling unwell yesterday, complaints of fatigue, also bilateral leg cramping, as well as chest pain, arm pain, neck and shoulder pain. All of the symptoms have occurred with each occurrence of her acute blood loss anemia and she feels like her symptoms are exactly as they have been in the past with no changes. With the exception of her current menstruation, patient denies any other source of blood loss. Her vital signs have been within normal limits.In the ED, 2 units of PRBCs were ordered an observation bed was requested to allow the patient to have further monitoring post transfusion with likely expectation of discharge later in the morning. - CONSULTS | PROCEDURES Procedures: Transfusion of 2 units PRBC. - HOSPITAL COURSE Hospital Course: Admitted to the hospital for acute on chronic blood loss anemia secondary to menstruation. She did complain of chest pain which she states she has when she is anemic. EKG showed no ischemic signs. Her troponin was not checked given her age and lack of risk factors. Her chest pain was also reproducible. She was given 2 units of packed red blood cells and hemoglobin improved from 6.7- 8.3. She did not have any significant bleeding while she was hospitalized. He did discuss repeating hemoglobin in the evening and observing her overnight for any signs of significant bleeding and to transfuse as needed. 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 I ordered a CBC for her to have done in 2 days. I asked her to follow-up with her primary care provider. We did discuss that if she has any further bleeding or develops symptoms again that are consistent with her anemia to either return to the emergency department or to call the [facility] where she usually gets her blood transfusions. - ALLERGIES Allergies/Adverse Reactions: Allergies Allergy/AdvReac Type Severity Reaction Status Date / Time hydrocodone Allergy Rash Verified 04/07/20 23:17 shrimp Allergy itching, Verified 04/07/20 23:17 diarrhea, headche, GI codeine [Codeine] AdvReac Intermediate itching/abd Verified 04/07/20 23:17 pain - MEDICATIONS Home Medications: Ambulatory Orders Medication Instructions Recorded Confirmed Ferrous Gluconate [Iron] 240 mg PO DAILY 12/31/19 04/07/20 Pnv No.95/Ferrous Fum/Folic AC 1 tab PO DAILY 12/31/19 04/07/20 [ Vitamins Tablet] l-Norgest/E.estradiol-E.estrad 1 each PO DAILY 04/08/20 04/08/20 [Loseasonique Tablet] - PHYSICAL EXAM AT DISCHARGE General Appearance: positive: No acute distress, Alert Eyes Bilateral: positive: Normal inspection ENT: positive: ENT inspection nml Neck: positive: Nml inspection Respiratory: positive: No respiratory distress. negative: Wheezes, Rales, Rhonchi Cardiovascular: positive: Regular rate & rhythm, No murmur. negative: Tachycardia, Bradycardia Abdomen: positive: Non-tender, No distention. negative: Tenderness Skin: positive: No rash, Warm, Dry Extremities: positive: Full ROM, No pedal edema Neurologic/Psychiatric: positive: Oriented x3, Motor nml. negative: Disoriented to person, Disoriented to place, Disoriented to time - LABS Result Diagrams: 04/08/20 09:10 04/08/20 00:15 - SEPSIS Current Stage of Sepsis: Ruled out - FOLLOW UP Follow Up: She was asked to follow up with her primary care provider within one week. She will have a CBC in 2 days. I asked her to return to emergency department if she develops any severe bleeding or symptoms consistent her anemia. - TIME SPENT Time Spent in Discharge (Minutes): 30"
== END 2020-04-08 11:25 | disposition home or self-care (01) ==
LOC: ED 23:02 → MS2 04-08 01:19
PROVIDERS: ADMIT Family Medicine Sports Medicine; ATTEND Internal Medicine
DX: D62 Acute posthemorrhagic anemia (principal); N92.0 Excessive and frequent menstruation with regular cycle; R07.9 Chest pain, unspecified; E61.1 Iron deficiency; Z85.6 Personal history of leukemia
CPT/HCPCS: 36415; 36430; 80048; 81001; 81025; 85025; 85027; 86850; 86900; 86901; 86920; 93005; 99284; 99285; A9270; G0378; P9016; 81003; 87086

== ENCOUNTER 2020-04-11 07:00 | Outpatient (CLI) | payer SELFPAY ==
[2020-04-11 18:12] LABS: BASOPHILS % (AUTO) 1.6 %; EOSINOPHILS % (AUTO) 0.5 %; HGB - HEMOGLOBIN 9.2 g/dL (12.0-16.0); MEAN CORPUSCULAR HEMOGLOBIN 23.8 pg (27.0-31.0); MEAN CORPUSCULAR HGB CONC 29.5 g/dL (32.0-36.0); MEAN CORPUSCULAR VOLUME 80.6 fL (81.0-99.0); MEAN PLATELET VOLUME 11.3 fL (7.9-10.8); MONOCYTES % (AUTO) 7.4 %; PLT - PLATELET COUNT 342 10^3/uL (130-450); RED BLOOD COUNT 3.87 10^6/uL (4.20-5.40); RED CELL DISTRIBUTION WIDTH 19.6 % (12.0-15.0); WHITE BLOOD COUNT 3.7 x10^3/uL (4.8-10.8)
[2020-04-11 18:23] LABS: ABNORMAL LYMPHS % (MANUAL) 0 %; BAND NEUTROPHILS % (MANUAL) 0 %
[2020-04-11 18:39] LABS: DIFFERENTIAL COMMENT MANUAL DIFFERENTIAL; LYMPHOCYTES # (MANUAL) 1.1 10^3/uL (1.5-3.5); LYMPHOCYTES % (MANUAL) 31 %; MONOCYTES # (MANUAL) 0.3 10^3/uL (0.0-1.0); PLATELET ESTIMATE, MANUAL NORMAL (130-450,000) (NORMAL); PLATELET MORPHOLOGY NORMAL APPEARANCE (NORMAL)
== END 2020-04-11 23:59 | disposition home or self-care (01) ==
LOC: LAB.WCP 07:00
PROVIDERS: ATTEND Family Medicine
DX: D64.9 Anemia, unspecified (principal)
CPT/HCPCS: 36415; 85025

== ENCOUNTER 2020-04-23 08:00 | Outpatient (CLI) | payer SELFPAY | END 2020-04-23 08:01 | disposition home or self-care (01) | LOC: LAB.WCP 08:00 | PROVIDERS: ATTEND Family Medicine | DX: Z53.9 Procedure and treatment not carried out, unspecified reason (principal) | CPT/HCPCS: 36415; 82728; 83540; 84466; 85025 ==

== ENCOUNTER 2020-04-25 08:00 | Outpatient (CLI) | payer SELFPAY ==
[2020-04-25 18:25] LABS: BASOPHILS % (AUTO) 1.1 %; EOSINOPHILS # (AUTO) 0.1 10^3/uL (0.0-0.7); EOSINOPHILS % (AUTO) 3.5 %; HGB - HEMOGLOBIN 9.7 g/dL (12.0-16.0); LYMPHOCYTES # (AUTO) 0.9 10^3/uL (1.5-3.5); LYMPHOCYTES % (AUTO) 30.9 %; MEAN CORPUSCULAR HEMOGLOBIN 22.8 pg (27.0-31.0); MEAN CORPUSCULAR HGB CONC 28.8 g/dL (32.0-36.0); MEAN CORPUSCULAR VOLUME 79.1 fL (81.0-99.0); MEAN PLATELET VOLUME 11.5 fL (7.9-10.8); MONOCYTES # (AUTO) 0.3 10^3/uL (0.0-1.0); MONOCYTES % (AUTO) 9.6 %; NEUTROPHILS # (AUTO) 1.5 10^3/uL (1.5-6.6); NEUTROPHILS % (AUTO) 54.5 %; PLT - PLATELET COUNT 290 10^3/uL (130-450); RED BLOOD COUNT 4.26 10^6/uL (4.20-5.40); RED CELL DISTRIBUTION WIDTH 19.5 % (12.0-15.0); WHITE BLOOD COUNT 2.8 x10^3/uL (4.8-10.8)
[2020-04-25 19:24] LABS: % IRON SATURATION 3 % (20-50); IRON 14 ug/dL (28-170); TOTAL IRON BINDING CAPACITY 407 ug/dL (250-450); TRANSFERRIN 291 mg/dL (192-382)
[2020-04-25 19:40] LABS: PLATELET ESTIMATE, MANUAL NORMAL (130-450,000) (NORMAL); PLATELET MORPHOLOGY NORMAL APPEARANCE (NORMAL)
== END 2020-04-25 08:01 | disposition home or self-care (01) ==
LOC: LAB.WCP 08:00
PROVIDERS: ATTEND Family Medicine
DX: D64.9 Anemia, unspecified (principal)
CPT/HCPCS: 36415; 82728; 83540; 84466; 85025

== ENCOUNTER 2020-06-03 20:43 | Emergency (ER) | payer SELFPAY ==
[2020-06-03 21:34] LABS: BASOPHILS % (AUTO) 0.8 %; EOSINOPHILS # (AUTO) 0.1 10^3/uL (0.0-0.7); EOSINOPHILS % (AUTO) 2.7 %; LYMPHOCYTES # (AUTO) 0.9 10^3/uL (1.5-3.5); LYMPHOCYTES % (AUTO) 19.8 %; MEAN CORPUSCULAR HEMOGLOBIN 25.8 pg (27.0-31.0); MEAN CORPUSCULAR HGB CONC 30.6 g/dL (32.0-36.0); MEAN CORPUSCULAR VOLUME 84.3 fL (81.0-99.0); MONOCYTES # (AUTO) 0.3 10^3/uL (0.0-1.0); MONOCYTES % (AUTO) 5.7 %; NEUTROPHILS # (AUTO) 3.4 10^3/uL (1.5-6.6); NEUTROPHILS % (AUTO) 70.6 %; PLT - PLATELET COUNT 290 10^3/uL (130-450); RED BLOOD COUNT 4.27 10^6/uL (4.20-5.40); RED CELL DISTRIBUTION WIDTH 25.1 % (12.0-15.0); WHITE BLOOD COUNT 4.8 x10^3/uL (4.8-10.8)
--- NOTE | 2020-06-03 21:41 | ED Physician Documentation ---
History of Present Illness - Stated complaint Stated Complaint: F /BLEEDING/WEAKNESS - Chief complaint Chief Complaint: Abd Pain - History obtained from History obtained from: Patient (35 y/o f w hx of uterine fibroids that have caused chronic anemia presents with feeling like she might be anemic again. denies heavy bleeding but reports spotting and cramping. denies syncope or weakness or dysuria. reports she is unable to get .) Review of Systems Constitutional: reports: Reviewed and negative Eyes: reports: Reviewed and negative Ears: reports: Reviewed and negative Nose: reports: Reviewed and negative Throat: reports: Reviewed and negative Cardiac: reports: Reviewed and negative Respiratory: reports: Reviewed and negative GI: reports: Reviewed and negative : reports: Vaginal bleeding Skin: reports: Reviewed and negative Musculoskeletal: reports: Reviewed and negative Neurologic: reports: Reviewed and negative Psychiatric: reports: Reviewed and negative Endocrine: reports: Reviewed and negative Immunocompromised: reports: Reviewed and negative PD PAST MEDICAL HISTORY - Past Medical History Cardiovascular: None Respiratory: Asthma Neuro: None Endocrine/Autoimmune: None GI: None 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 HEENT: None Psych: None Musculoskeletal: None Derm: None - Past Surgical History Past Surgical History: Yes /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 HELPER: Dilation and currettage - Present Medications Home Medications: Ambulatory Orders Medication Instructions Recorded Confirmed Ferrous Gluconate [Iron] 240 mg PO DAILY 12/31/19 04/07/20 Pnv No.95/Ferrous Fum/Folic AC 1 tab PO DAILY 12/31/19 04/07/20 [ Vitamins Tablet] l-Norgest/E.estradiol-E.estrad 1 each PO DAILY 04/08/20 04/08/20 [Loseasonique Tablet] Hydrocodone/Acetaminophen [[place] 1 each PO Q6HR PRN #7 tablet 06/03/20 5-325 Tablet] - Allergies Allergies/Adverse Reactions: Allergies Allergy/AdvReac Type Severity Reaction Status Date / Time hydrocodone Allergy Rash Verified 06/03/20 20:53 shrimp Allergy itching, Verified 06/03/20 20:53 diarrhea, headche, GI codeine [Codeine] AdvReac Intermediate itching/abd Verified 06/03/20 20:53 pain - Social History Does the pt smoke?: No Smoking Status: Never smoker Does the pt drink ETOH?: No Does the pt have substance abuse?: No - Immunizations Immunizations are current?: Yes Immunizations: No immun - POLST Patient has POLST: No POLST Status: Full Code PD ED PE NORMAL - Vitals Vital signs reviewed: Yes - General General: Alert and oriented X 3, No acute distress, Well developed/nourished - HEENT HEENT: PERRL, Moist mucous membranes, Pharynx benign - Neck Neck: Supple, no meningeal sign - Cardiac Cardiac: RRR, No murmur, Strong equal pulses - Respiratory Respiratory: No respiratory distress, Clear bilaterally - Abdomen Abdomen: Normal bowel sounds, Soft, Non tender, Non distended, No organomegaly - Female Female : Pt declined - Rectal Rectal: Deferred - Back Back: No CVA TTP, No spinal TTP - Derm Derm: Normal color, Warm and dry, No rash - Extremities Extremities: No deformity, No tenderness to palpate, Normal ROM s pain, No edema, No calf tenderness / cord - Neuro Neuro: Alert and oriented X 3, area relief pilot 2-12 intact, No motor deficit, No sensory deficit, Normal speech - Psych Psych: Normal mood, Normal affect Results - Vitals Vitals: Vital Signs - 24 hr 06/03/20 06/03/20 06/03/20 20:51 21:23 21:30 Temperature 36.9 C Heart Rate 73 63 71 Respiratory 16 14 16 Rate Blood Pressure 117/76 99/74 100/75 O2 Saturation 100 100 100 Oxygen O2 Source Room air - EKG (time done) 21:03 Rate: Other (no stemi) - Labs Labs: Laboratory Tests 06/03/20 06/03/20 06/03/20 21:20 21:20 21:20 WBC 4.8 RBC 4.27 Hgb 11.0 L Hct 36.0 L MCV 84.3 MCH 25.8 L MCHC 30.6 L RDW 25.1 H Plt Count 290 MPV 11.0 H Neut # (Auto) 3.4 Lymph # (Auto) 0.9 L Person # (Auto) 0.3 Eos # (Auto) 0.1 Baso # (Auto) 0.0 Absolute Nucleated RBC 0.00 Nucleated RBC % 0.0 PT 12.4 INR 1.1 APTT 31.3 Sodium 137 Potassium 3.9 Chloride 104 Carbon Dioxide 23 Anion Gap 10.0 BUN 11 Creatinine 0.6 Estimated GFR (MDRD) 115 Glucose 107 H Calcium 9.0 Total Bilirubin 0.5 AST 13 ALT 13 Alkaline Phosphatase 52 Total Protein 6.3 L Albumin 4.3 Globulin 2.0 L Albumin/Globulin Ratio 2.2 Lipase 28 PD MEDICAL DECISION MAKING - ED course Complexity details: reviewed results, re-evaluated patient, considered differential (anemia, uterine fibroids. ), d/w patient Departure - Departure Disposition: Home, Self Care Clinical Impression: Vaginal bleeding Uterine fibroid Qualifiers: Uterine leiomyoma location: unspecified location Qualified Code(s): D25.9 - Leiomyoma of uterus, unspecified Condition: Stable Instructions: ED Fibroids Follow-Up: your, doctor [Other] - Tomorrow Prescriptions: Hydrocodone/Acetaminophen [[place] 5-325 Tablet] 1 each PO Q6HR PRN #7 tablet PRN Reason: Pain Comments: follow up with your doctor tomorrow.
[2020-06-03 21:42] LABS: INR 1.1 (0.8-1.2); PT - PROTHROMBIN TIME 12.4 secs (9.9-12.6)
[2020-06-03 21:49] LABS: PARTIAL THROMBOPLASTIN TIME 31.3 secs (24.9-33.3)
[2020-06-03 21:50] LABS: ALBUMIN 4.3 g/dL (3.2-5.5); ALBUMIN/GLOBULIN RATIO 2.2 (1.0-2.2); BILIRUBIN,TOTAL 0.5 mg/dL (0.2-1.0); CREATININE 0.6 mg/dL (0.4-1.0); TOTAL PROTEIN 6.3 g/dL (6.7-8.2)
[2020-06-03] MEDS ORDERED: fentaNYL 100 MCG/2 ML VIAL IVP STA (21:53)
[2020-06-03 22:13] VITALS: BP 99/74
== END 2020-06-03 22:25 | disposition home or self-care (01) ==
LOC: ED 20:43
DX: N93.9 Abnormal uterine and vaginal bleeding, unspecified (principal); D25.9 Leiomyoma of uterus, unspecified
CPT/HCPCS: 36415; 80053; 83690; 84702; 85025; 85610; 85730; 86850; 86900; 86901; 93005; 96374; 99284

== ENCOUNTER 2020-09-01 17:52 | Emergency (ER) | payer SELFPAY ==
--- NOTE | 2020-09-01 18:30 | ED Physician Documentation ---
History of Present Illness - Stated complaint Stated Complaint: DIZZY/CHEST PX - Chief complaint Chief Complaint: Cardiac - History obtained from History obtained from: Patient - History of Present Illness Timing: How many weeks ago (1) Pain level max: 0 Pain level now: 0 - Additonal information Additional information: 35-year-old female states that she has just been feeling tired and weak for the past week or so. She states occasionally chest tightness. She states that she is concerned she has recurrent anemia. Has a history of fibroids with heavy menstrual bleeding. She states she has had intermittent bleeding for the past 18 days. States she is scheduled to have an iron infusion this week. Review of Systems Constitutional: denies: Fever, Chills Nose: denies: Rhinorrhea / runny nose Throat: denies: Sore throat Cardiac: reports: Chest pain / pressure (Occasional chest tightness, none currently.) Respiratory: denies: Cough GI: reports: Abdominal Swelling. 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 HEENT: None Psych: None Musculoskeletal: None Derm: None - Past Surgical History Past Surgical History: Yes /PLATFORM BEATER: Dilation and currettage - Present Medications Home Medications: Ambulatory Orders Medication Instructions Recorded Confirmed Ferrous Gluconate [Iron] 240 mg PO BID 12/31/19 09/01/20 l-Norgest/E.estradiol-E.estrad 1 each PO DAILY 04/08/20 09/01/20 [Loseasonique Tablet] Ascorbic Acid [Vitamin C] 500 mg ORAL DAILY 09/01/20 09/01/20 Folic Acid 1 mg PO DAILY 09/01/20 09/01/20 Mecobalamin [B12 Active] 500 mcg PO DAILY 09/01/20 09/01/20 No122/Iron/Folic Acid 1 each PO DAILY 09/01/20 09/01/20 [ Multi Tablet] - Allergies Allergies/Adverse Reactions: Allergies Allergy/AdvReac Type Severity Reaction Status Date / Time hydrocodone Allergy Rash Verified 09/01/20 17:54 shrimp Allergy itching, Verified 09/01/20 17:54 diarrhea, headche, GI codeine [Codeine] AdvReac Intermediate itching/abd Verified 09/01/20 17:54 pain fentanyl AdvReac Diaphoresis Verified 09/01/20 17:54 - Social History Does the pt smoke?: No Smoking Status: Never smoker Does the pt drink ETOH?: No Does the pt have substance abuse?: No - Immunizations Immunizations are current?: Yes Immunizations: No immun - POLST Patient has POLST: No POLST Status: Full Code PD ED PE NORMAL - Vitals Vital signs reviewed: Yes - General General: Alert and oriented X 3, No acute distress, Well developed/nourished - HEENT HEENT: PERRL, Moist mucous membranes, Pharynx benign - Neck Neck: Supple, no meningeal sign - Cardiac Cardiac: RRR, No murmur, Strong equal pulses - Respiratory Respiratory: No respiratory distress, Clear bilaterally - Abdomen Abdomen: Soft, Non tender, Non distended - Derm Derm: Warm and dry - Extremities Extremities: No edema - Neuro Neuro: Alert and oriented X 3 - Psych Psych: Normal mood, Normal affect Results - Vitals Vitals: Vital Signs - 24 hr 09/01/20 09/01/20 09/01/20 17:54 18:34 19:35 Temperature 37.1 C 37 C 36.5 C Heart Rate 58 L 63 62 Respiratory 16 24 18 Rate Blood Pressure 129/73 111/68 118/75 O2 Saturation 98 98 98 Oxygen O2 Source Room air - EKG (time done) 1756 Rate: Rate (enter#) (57) Rhythm: NSR [place]: Normal Intervals: Normal [place] QRS: Normal, LVH - Labs Labs: Laboratory Tests 09/01/20 09/01/20 09/01/20 18:30 18:30 18:30 WBC 4.7 L RBC 5.61 H Hgb 15.1 Hct 47.0 MCV 83.8 MCH 26.9 L MCHC 32.1 RDW 22.1 H Plt Count 182 MPV 11.5 H Neut # (Auto) 2.8 Lymph # (Auto) 1.4 L [place] # (Auto) 0.4 Eos # (Auto) 0.1 Baso # (Auto) 0.0 Absolute Nucleated RBC 0.00 Nucleated RBC % 0.0 Manual Slide Review Indicated Platelet Estimate NORMAL (130-450,000) Platelet Morphology NORMAL APPEARANCE RBC Morph Micro Appear 2+ ANISOCYTOSIS Sodium 139 Potassium 3.7 Chloride 105 Carbon Dioxide 25 Anion Gap 9.0 BUN 15 Creatinine 0.6 Estimated GFR (MDRD) 115 Glucose 103 H Calcium 9.3 Total Bilirubin 0.4 AST 14 ALT 20 Alkaline Phosphatase 78 Troponin I High Sens 2.6 Total Protein 7.4 Albumin 4.1 Globulin 3.3 Albumin/Globulin Ratio 1.2 Lipase 34 PD MEDICAL DECISION MAKING - ED course Complexity details: considered differential, d/w patient ED course: Patient with a longstanding history of recurrent anemia secondary to fibroids. She is not anemic today. No evidence of acute coronary syndrome. No evidence of PE. No evidence of pneumothorax. She has been under increasing stress recently as her is dying from Fanta's disease. She states she is not sleeping well. She will follow-up with her doctor regarding depression and anxiety. She is not suicidal or homicidal. Patient counseled regarding signs and symptoms for which I believe and urgent re-evaluation would be necessary. Patient with good understanding of and agreement to plan and is comfortable going home at this time This document was made in part using voice recognition software. While efforts are made to proofread this document, sound alike and grammatical errors may occur. Patient will also follow-up with her senior accounting specialist regarding her fibroids. Departure - Departure Disposition: 01 Home, Self Care Clinical Impression: Menorrhagia Qualifiers: Menorrhagia type: with regular cycle Qualified Code(s): N92.0 - Excessive and frequent menstruation with regular cycle Condition: Good Instructions: ED Bleeding Menstrual Heavy Follow-Up: Phil Schultz MD [Primary Care Provider] - Within 1 week Comments: Your hemoglobin is 15 today. You are not anemic. Please follow-up with your doctor for further care. Discharge Date/Time: 09/01/20 20:01
--- NOTE | 2020-09-01 18:43 | XRAY Report ---
PROCEDURE: Chest 1 View X-Ray INDICATIONS: Chest Pain TECHNIQUE: One view of the chest was acquired. COMPARISON: Single view the chest dated 12/31/2019 FINDINGS: Surgical changes and devices: None. Lungs and pleura: No pleural effusions or pneumothorax. Lungs are clear. Mediastinum: Mediastinal contours appear normal. Heart size is normal. Bones and chest wall: No suspicious bony lesions. Overlying soft tissues appear unremarkable. IMPRESSION: No acute cardiopulmonary findings. Reviewed by: Radha Adams MD on 09/01/2020 6:42 PM PDT Approved by: Radha Adams MD on 09/01/2020 6:42 PM PDT Station ID: [id number]
[2020-09-01 18:53] LABS: BASOPHILS % (AUTO) 0.6 %; EOSINOPHILS # (AUTO) 0.1 10^3/uL (0.0-0.7); EOSINOPHILS % (AUTO) 1.3 %; HGB - HEMOGLOBIN 15.1 g/dL (12.0-16.0); LYMPHOCYTES # (AUTO) 1.4 10^3/uL (1.5-3.5); LYMPHOCYTES % (AUTO) 30.3 %; MEAN CORPUSCULAR HEMOGLOBIN 26.9 pg (27.0-31.0); MEAN CORPUSCULAR HGB CONC 32.1 g/dL (32.0-36.0); MEAN CORPUSCULAR VOLUME 83.8 fL (81.0-99.0); MEAN PLATELET VOLUME 11.5 fL (7.9-10.8); MONOCYTES # (AUTO) 0.4 10^3/uL (0.0-1.0); MONOCYTES % (AUTO) 7.9 %; NEUTROPHILS # (AUTO) 2.8 10^3/uL (1.5-6.6); NEUTROPHILS % (AUTO) 59.5 %; PLT - PLATELET COUNT 182 10^3/uL (130-450); RED BLOOD COUNT 5.61 10^6/uL (4.20-5.40); RED CELL DISTRIBUTION WIDTH 22.1 % (12.0-15.0); WHITE BLOOD COUNT 4.7 x10^3/uL (4.8-10.8)
[2020-09-01 19:06] LABS: ALBUMIN 4.1 g/dL (3.2-5.5); ALBUMIN/GLOBULIN RATIO 1.2 (1.0-2.2); BILIRUBIN,TOTAL 0.4 mg/dL (0.2-1.0); CALCIUM 9.3 mg/dL (8.5-10.3); CREATININE 0.6 mg/dL (0.4-1.0); TOTAL PROTEIN 7.4 g/dL (6.7-8.2)
[2020-09-01 19:13] LABS: PLATELET ESTIMATE, MANUAL NORMAL (130-450,000) (NORMAL); PLATELET MORPHOLOGY NORMAL APPEARANCE (NORMAL); RBC MORPHOLOGY (MULTIPLE) 2+ ANISOCYTOSIS (NORMAL)
[2020-09-01] MEDS ORDERED: ACETAMINOPHEN 325 MG TABLET PO STA (19:27)
[2020-09-01 19:47] VITALS: BP 118/75
== END 2020-09-01 20:01 | disposition home or self-care (01) ==
LOC: ED 17:52
DX: N92.0 Excessive and frequent menstruation with regular cycle (principal); D25.9 Leiomyoma of uterus, unspecified; R07.89 Other chest pain; F43.9 Reaction to severe stress, unspecified
CPT/HCPCS: 36415; 71045; 80053; 83690; 84484; 85025; 93005; 99284; A9270

== ENCOUNTER 2020-11-24 12:24 | Emergency (ER) | payer SELFPAY ==
[2020-11-24 12:34] VITALS: BP 121/67
[2020-11-24 12:55] LABS: BASOPHILS % (AUTO) 0.9 %; EOSINOPHILS # (AUTO) 0.1 10^3/uL (0.0-0.7); EOSINOPHILS % (AUTO) 2.1 %; HGB - HEMOGLOBIN 9.2 g/dL (12.0-16.0); LYMPHOCYTES % (AUTO) 29.9 %; MEAN CORPUSCULAR HEMOGLOBIN 31.4 pg (27.0-31.0); MEAN CORPUSCULAR HGB CONC 31.5 g/dL (32.0-36.0); MEAN CORPUSCULAR VOLUME 99.7 fL (81.0-99.0); MEAN PLATELET VOLUME 10.5 fL (7.9-10.8); MONOCYTES # (AUTO) 0.2 10^3/uL (0.0-1.0); MONOCYTES % (AUTO) 5.9 %; NEUTROPHILS % (AUTO) 59.4 %; PLT - PLATELET COUNT 278 10^3/uL (130-450); RED BLOOD COUNT 2.93 10^6/uL (4.20-5.40); RED CELL DISTRIBUTION WIDTH 16.3 % (12.0-15.0); WHITE BLOOD COUNT 3.4 x10^3/uL (4.8-10.8)
[2020-11-24 13:01] LABS: CREATININE 0.5 mg/dL (0.4-1.0)
[2020-11-24 13:13] LABS: HCG,QUALITATIVE BLOOD NEGATIVE
--- NOTE | 2020-11-24 13:46 | ED Physician Documentation ---
History of Present Illness - Stated complaint Stated Complaint: DIZZINESS PX IN CHEST AND LEGS - Chief complaint Chief Complaint: Cardiac - History obtained from History obtained from: Patient - Additonal information Additional information: This is a very pleasant 35-year-old woman with history of fibroid uterus and chronic anemia related to same. She often has symptomatic anemia and presents to the emergency department, sometimes needing transfusion and sometimes not. She does see a specialist for this both hematology and gynecology. She presents today with several days of fatigue, poor sleep, diffuse body pain. Her symptoms are similar to prior episodes of anemia requiring transfusion. Review of Systems Ten Systems: 10 systems reviewed and negative Constitutional: reports: Fatigue Cardiac: reports: Chest pain / pressure. denies: Palpitations Respiratory: reports: Dyspnea. 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 HEENT: None Psych: None Musculoskeletal: None Derm: None - Past Surgical History Past Surgical History: Yes /PROJECT MANAGEMENT MANAGER: Dilation and currettage - Present Medications Home Medications: Ambulatory Orders Medication Instructions Recorded Confirmed Ferrous Gluconate [Iron] 240 mg PO BID 12/31/19 11/05/20 l-Norgest/E.estradiol-E.estrad 1 each PO DAILY 04/08/20 11/05/20 [Loseasonique Tablet] Ascorbic Acid [Vitamin C] 500 mg ORAL DAILY 09/01/20 11/05/20 Folic Acid 1 mg PO DAILY 09/01/20 11/05/20 Mecobalamin [B12 Active] 500 mcg PO DAILY 09/01/20 11/05/20 No122/Iron/Folic Acid 1 each PO DAILY 09/01/20 11/05/20 [ Multi Tablet] Famotidine [Pepcid] 20 mg PO ONCE 11/05/20 11/05/20 - Allergies Allergies/Adverse Reactions: Allergies Allergy/AdvReac Type Severity Reaction Status Date / Time hydrocodone Allergy Rash Verified 11/24/20 12:27 shrimp Allergy itching, Verified 11/24/20 12:27 diarrhea, headche, GI codeine [Codeine] AdvReac Intermediate itching/abd Verified 11/24/20 12:27 pain fentanyl AdvReac Diaphoresis Verified 11/24/20 12:27 - Social History Does the pt smoke?: No Smoking Status: Never smoker Does the pt drink ETOH?: No Does the pt have substance abuse?: No - Immunizations Immunizations are current?: Yes Immunizations: No immun - POLST Patient has POLST: No POLST Status: Full Code PD ED PE NORMAL - Vitals Vital signs reviewed: Yes - General General: Alert and oriented X 3, No acute distress - HEENT HEENT: PERRL, EOMI - Neck Neck: Supple, no meningeal sign, No bony TTP - Cardiac Cardiac: RRR, No murmur - Respiratory Respiratory: No respiratory distress, Clear bilaterally - Abdomen Abdomen: Normal bowel sounds, Soft, Non tender - Back Back: No CVA TTP, No spinal TTP - Derm Derm: Normal color, Warm and dry - Extremities Extremities: No edema, No calf tenderness / cord - Neuro Neuro: Alert and oriented X 3, Normal speech Results - Vitals Vitals: Vital Signs - 24 hr 11/24/20 11/24/20 12:28 12:33 Temperature 36.8 C 36.8 C Heart Rate 80 80 Respiratory 16 16 Rate Blood Pressure 121/67 121/67 O2 Saturation 100 100 Oxygen O2 Source Room air - EKG (time done) 1228 Rate: Rate (enter#) (72) Rhythm: NSR [place]: Normal Intervals: Normal [place] QRS: Normal Ischemia: Normal ST segments Computer interpretation: Agree with computer - Labs Labs: Laboratory Tests 11/24/20 11/24/20 11/24/20 12:44 12:44 12:44 WBC 3.4 L RBC 2.93 L Hgb 9.2 L Hct 29.2 L MCV 99.7 H MCH 31.4 H MCHC 31.5 L RDW 16.3 H Plt Count 278 MPV 10.5 Neut # (Auto) 2.0 Lymph # (Auto) 1.0 L [place] # (Auto) 0.2 Eos # (Auto) 0.1 Baso # (Auto) 0.0 Absolute Nucleated RBC 0.05 Nucleated RBC % 1.5 Sodium 141 Potassium 3.5 Chloride 104 Carbon Dioxide 25 Anion Gap 12.0 BUN 8 Creatinine 0.5 Estimated GFR (MDRD) 142 Glucose 108 H Calcium 9.0 Serum HCG, Qual Blood Type O POSITIVE Antibody Screen NEGATIVE 11/24/20 12:44 WBC RBC Hgb Hct MCV MCH MCHC RDW Plt Count MPV Neut # (Auto) Lymph # (Auto) [place] # (Auto) Eos # (Auto) Baso # (Auto) Absolute Nucleated RBC Nucleated RBC % Sodium Potassium Chloride Carbon Dioxide Anion Gap BUN Creatinine Estimated GFR (MDRD) Glucose Calcium Serum HCG, Qual NEGATIVE Blood Type Antibody Screen PD MEDICAL DECISION MAKING - ED course ED course: 35-year-old woman presents with fatigue presyncope, feeling like she is anemic. She opened up to me today and is having a lot of relationship problems with her who has Fanta's disease and has significant behavioral issues. 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 Social work talked with her, but she did not want any help from that perspective. She does not need a transfusion today. Departure - Departure Disposition: 01 Home, Self Care Clinical Impression: Acute on chronic blood loss anemia Heavy menstrual bleeding Qualifiers: Menorrhagia type: premenopausal Qualified Code(s): N92.4 - Excessive bleeding in the premenopausal period Condition: Good Record reviewed to determine appropriate education?: Yes Comments: Return if worse, follow-up with your community liaison and furniture packer as per routine.
== END 2020-11-24 14:30 | disposition home or self-care (01) ==
LOC: ED 12:24
DX: D62 Acute posthemorrhagic anemia (principal); N92.4 Excessive bleeding in the premenopausal period
CPT/HCPCS: 36415; 80048; 84703; 85025; 86850; 86900; 86901; 99283; 99284

== ENCOUNTER 2021-04-12 18:42 | Emergency (ER) | payer SELFPAY ==
[2021-04-12 19:04] VITALS: BP 132/88
--- NOTE | 2021-04-12 19:45 | XRAY Report ---
PROCEDURE: Ankle 3 View LT INDICATIONS: trauma TECHNIQUE: 3 views of the ankle were acquired. COMPARISON: None FINDINGS: Bones: No fractures or dislocations. Ankle mortise is normally aligned. No suspicious bony lesions . Soft tissues: No tibiotalar joint effusion. Achilles tendon appears normal. Soft tissue swelling o verlying the ankle. IMPRESSION: Left ankle soft tissue swelling without underlying fracture or dislocation. Reviewed by: Yuval Steel MD on 04/12/2021 7:43 PM PDT Approved by: Yuval Steel MD on 04/12/2021 7:43 PM PDT Station ID: [id number]
[2021-04-12] MEDS ORDERED: oxyCODONE 5 MG TABLET PO STA (20:14)
--- NOTE | 2021-04-12 20:15 | ED Physician Documentation ---
PD HPI LOWER EXT INJURY - Stated complaint Stated Complaint: LT ANKLE PX - Chief complaint Chief Complaint: Trauma Ext - History obtained from History obtained from: Patient - History of Present Illness PD HPI LOW EXT INJURY LOCATION: Left (Her foot went in a hole and she inverted it. Now unable to walk or bear weight. 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 HEENT: None Psych: None Musculoskeletal: None Derm: None - Past Surgical History Past Surgical History: Yes /TECHNICAL ASST: Dilation and currettage - Present Medications Home Medications: Ambulatory Orders Medication Instructions Recorded Confirmed Ferrous Gluconate [Iron] 240 mg PO BID 12/31/19 03/18/21 l-Norgest/E.estradiol-E.estrad 1 each PO DAILY 04/08/20 03/18/21 [Loseasonique Tablet] Ascorbic Acid [Vitamin C] 500 mg ORAL DAILY 09/01/20 03/18/21 Folic Acid 1 mg PO DAILY 09/01/20 03/18/21 Mecobalamin [B12 Active] 500 mcg PO DAILY 09/01/20 03/18/21 No122/Iron/Folic Acid 1 each PO DAILY 09/01/20 03/18/21 [ Multi Tablet] Famotidine [Pepcid] 20 mg PO ONCE 11/05/20 03/18/21 Oxycodone HCl/Acetaminophen 1 - 2 each PO Q6H PRN #14 tablet 04/12/21 [Percocet 5-325 mg Tablet] - Allergies Allergies/Adverse Reactions: Allergies Allergy/AdvReac Type Severity Reaction Status Date / Time hydrocodone Allergy Rash Verified 04/12/21 19:05 shrimp Allergy itching, Verified 04/12/21 19:05 diarrhea, headche, GI codeine [Codeine] AdvReac Intermediate itching/abd Verified 04/12/21 19:05 pain fentanyl AdvReac Diaphoresis Verified 04/12/21 19:05 - Social History Does the pt smoke?: No Smoking Status: Never smoker Does the pt drink ETOH?: No Does the pt have substance abuse?: No - Immunizations Immunizations are current?: Yes Immunizations: No immun - POLST Patient has POLST: No POLST Status: Full Code PD ED PE NORMAL - Vitals Vital signs reviewed: Yes - General General: Alert and oriented X 3, No acute distress - Extremities Extremities: Other (Tender and swollen over the lateral malleolus of the left ankle. No proximal fibular or foot tenderness. No deformity.) - Neuro Neuro: Alert and oriented X 3, Normal speech Results - Vitals Vitals: Vital Signs - 24 hr 04/12/21 19:02 Temperature 35.7 C L Heart Rate 69 Respiratory 20 Rate Blood Pressure 132/88 H O2 Saturation 98 Oxygen O2 Source Room air - Rads (name of study) Three-view x-ray left ankle Radiology: EMP read contemporaneously (Unremarkable) PD MEDICAL DECISION MAKING - ED course ED course: I am prescribing a short course of short-acting opioid pain medication for this patient. 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 I have discussed that the opioids are for short term therapy only, and will not be refilled from the ED. Departure - Departure Disposition: 01 Home, Self Care Clinical Impression: Left ankle sprain Condition: Good Record reviewed to determine appropriate education?: Yes Instructions: ED Sprain Ankle W X Ray Prescriptions: Oxycodone HCl/Acetaminophen [Percocet 5-325 mg Tablet] 1 - 2 each PO Q6H PRN #14 tablet PRN Reason: pain Comments: Recheck with your physician if not better in a week. Return for new or worse scarlet symptoms. You may walk on the ankle if it is not too painful. Otherwise keep it elevated and you can ice it. I am prescribing a short course of narcotic pain medication for you. These are potentially dangerous and addictive medications that should be used carefully. These medications may constipate you. Take an alwq-kkd-dubywuj stool softener (docusate) twice daily with plenty of water while taking these medications. If you go 24 hours without a bowel movement, take [id number] miralax, per package instructions. Do not drink or drive while taking these medications. If you received narcotic or sedating medications while in the emergency department, do not drive for 24 hours. Store this medication in a safe, secure place and out of reach of children. It is a violation of federal law to give or sell this medication to another person or to use in a manner other than prescribed. The ED will not refill narcotic prescriptions, including prescriptions lost or stolen. To dispose of unwanted medications: 1. [facility] at [address] in [place] has a medication drop box. They accept prescription medications (in pill form) Wednesday through Wednesday 9:00 a.m. to 5:00 p.m. 2. The [facility] accepts prescription medications (in pill form only) for disposal year round. Call for more information. 3. Contact the [facility] for the next [facility] sponsored prescription drug collection event. , [phone], or [phone]; Note that many narcotic pain relievers also contain Tylenol/acetaminophen. Please ensure that your total dose of acetaminophen from all sources does not exceed 3 g (3000 mg) per day.
== END 2021-04-12 20:30 | disposition home or self-care (01) ==
LOC: ED 18:42
DX: S93.402A Sprain of unspecified ligament of left ankle, initial encounter (principal); X50.1XXA Overexertion from prolonged static or awkward postures, initial encounter; Y93.89 Activity, other specified
CPT/HCPCS: 73610; 99283; A9270

== ENCOUNTER 2021-08-04 08:00 | Outpatient (CLI) | payer SELFPAY ==
[2021-08-04 17:42] LABS: BASOPHILS % (AUTO) 0.6 %; EOSINOPHILS # (AUTO) 0.1 10^3/uL (0.0-0.7); EOSINOPHILS % (AUTO) 1.9 %; HCT - HEMATOCRIT 46.5 % (37.0-47.0); LYMPHOCYTES # (AUTO) 1.3 10^3/uL (1.5-3.5); LYMPHOCYTES % (AUTO) 35.8 %; MEAN CORPUSCULAR HEMOGLOBIN 29.6 pg (27.0-31.0); MEAN CORPUSCULAR HGB CONC 32.3 g/dL (32.0-36.0); MEAN CORPUSCULAR VOLUME 91.7 fL (81.0-99.0); MEAN PLATELET VOLUME 11.9 fL (7.9-10.8); MONOCYTES # (AUTO) 0.3 10^3/uL (0.0-1.0); MONOCYTES % (AUTO) 6.9 %; NEUTROPHILS % (AUTO) 54.5 %; PLT - PLATELET COUNT 235 10^3/uL (130-450); RED BLOOD COUNT 5.07 10^6/uL (4.20-5.40); WHITE BLOOD COUNT 3.6 x10^3/uL (4.8-10.8)
== END 2021-08-04 23:59 | disposition home or self-care (01) ==
LOC: LAB.N 08:00
PROVIDERS: ATTEND Physician Assistant Medical
DX: R55 Syncope and collapse (principal)
CPT/HCPCS: 36415; 85025

== ENCOUNTER 2021-08-04 13:52 | Outpatient (CLI) | payer SELFPAY ==
--- NOTE | 2021-08-05 09:02 | XRAY Report ---
PROCEDURE: Ankle 3 View LT INDICATIONS: L ANKLE PX TECHNIQUE: 3 views of the ankle were acquired. COMPARISON: None FINDINGS: Bones: No fractures or dislocations. Ankle mortise is normally aligned. No suspicious bony lesions . Soft tissues: No tibiotalar joint effusion. Achilles tendon appears normal. IMPRESSION: Normal left ankle Reviewed by: Gryeson Leong on 08/05/2021 9:01 AM PDT Approved by: Greyson Leong on 08/05/2021 9:01 AM PDT Station ID: [id number]
== END 2021-08-04 23:59 | disposition home or self-care (01) ==
LOC: DI.N 13:52
PROVIDERS: ATTEND Physician Assistant Medical
DX: M25.572 Pain in left ankle and joints of left foot (principal)

== ENCOUNTER 2022-01-12 08:00 | Outpatient (CLI) | payer SELFPAY ==
[2022-01-12 18:11] LABS: BASOPHILS % (AUTO) 0.9 %; EOSINOPHILS % (AUTO) 1.2 %; HCT - HEMATOCRIT 43.7 % (37.0-47.0); HGB - HEMOGLOBIN 13.5 g/dL (12.0-16.0); LYMPHOCYTES # (AUTO) 1.2 10^3/uL (1.5-3.5); LYMPHOCYTES % (AUTO) 34.2 %; MEAN CORPUSCULAR HEMOGLOBIN 25.2 pg (27.0-31.0); MEAN CORPUSCULAR HGB CONC 30.9 g/dL (32.0-36.0); MEAN CORPUSCULAR VOLUME 81.7 fL (81.0-99.0); MEAN PLATELET VOLUME 12.5 fL (7.9-10.8); MONOCYTES # (AUTO) 0.3 10^3/uL (0.0-1.0); MONOCYTES % (AUTO) 8.3 %; NEUTROPHILS # (AUTO) 1.9 10^3/uL (1.5-6.6); NEUTROPHILS % (AUTO) 55.1 %; PLT - PLATELET COUNT 206 10^3/uL (130-450); RED BLOOD COUNT 5.35 10^6/uL (4.20-5.40); RED CELL DISTRIBUTION WIDTH 16.2 % (12.0-15.0); WHITE BLOOD COUNT 3.4 x10^3/uL (4.8-10.8)
[2022-01-12 18:37] LABS: ALBUMIN 4.2 g/dL (3.2-5.5); ALBUMIN/GLOBULIN RATIO 1.4 (1.0-2.2); BILIRUBIN,TOTAL 0.5 mg/dL (0.2-1.0); CALCIUM 9.2 mg/dL (8.5-10.3); CREATININE 0.6 mg/dL (0.4-1.0); POTASSIUM 4.1 mmol/L (3.5-5.0); TOTAL PROTEIN 7.2 g/dL (6.7-8.2)
== END 2022-01-12 23:59 | disposition home or self-care (01) ==
LOC: LAB.N 08:00
PROVIDERS: ATTEND Nurse Practitioner
DX: R53.1 Weakness (principal)
CPT/HCPCS: 36415; 80053; 85025

== ENCOUNTER 2022-08-16 19:07 | Emergency (ER) | payer SELFPAY ==
[2022-08-16] MEDS ORDERED: predniSONE 20 MG TABLET PO STA (20:20)
[2022-08-16] MEDS ORDERED: CETIRIZINE 10 MG TABLET PO STA (20:22)
--- NOTE | 2022-08-16 20:22 | ED Physician Documentation ---
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 They stung her on the tongue. She has tongue swelling. No airway compromise. 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 HEENT: None Psych: None Musculoskeletal: None Derm: None - Past Surgical History Past Surgical History: Yes /FLARE STITCHER: Dilation and currettage - Present Medications Home Medications: Ambulatory Orders Medication Instructions Recorded Confirmed Ferrous Gluconate [Iron] 240 mg PO BID 12/31/19 08/16/22 l-Norgest/E.estradiol-E.estrad 1 each PO DAILY 04/08/20 08/16/22 [Loseasonique Tablet] Ascorbic Acid [Vitamin C] 500 mg ORAL DAILY 09/01/20 08/16/22 Folic Acid 1 mg PO DAILY 09/01/20 08/16/22 Mecobalamin [B12 Active] 500 mcg PO DAILY 09/01/20 08/16/22 No122/Iron/Folic Acid 1 each PO DAILY 09/01/20 08/16/22 [ Multi Tablet] Famotidine [Pepcid] 20 mg PO ONCE 11/05/20 08/16/22 Oxycodone HCl/Acetaminophen 1 - 2 each PO Q6H PRN #14 tablet 04/12/21 08/16/22 [Percocet 5-325 mg Tablet] predniSONE [Deltasone] 60 mg PO DAILY 3 Days #9 tablet 08/16/22 - Allergies Allergies/Adverse Reactions: Allergies Allergy/AdvReac Type Severity Reaction Status Date / Time hydrocodone Allergy Rash Verified 08/16/22 19:15 shrimp Allergy itching, Verified 08/16/22 19:15 diarrhea, headche, GI codeine [Codeine] AdvReac Intermediate itching/abd Verified 08/16/22 19:15 pain fentanyl AdvReac Diaphoresis Verified 08/16/22 19:15 - Social History Does the pt smoke?: No Smoking Status: Never smoker Does the pt drink ETOH?: No Does the pt have substance abuse?: No - Immunizations Immunizations are current?: Yes Immunizations: No immun - POLST Patient has POLST: No POLST Status: Full Code PD ED PE NORMAL - Vitals Vital signs reviewed: Yes - General General: Alert and oriented X 3, No acute distress - HEENT HEENT: Other (Mild swelling of the right side of the tongue with the posterior oropharynx looking normal. Full voice/phonation are normal.) - Respiratory Respiratory: No respiratory distress, Clear bilaterally - Derm Derm: No rash - Neuro Neuro: Alert and oriented X 3, Normal speech Results - Vitals Vitals: Vital Signs - 24 hr 08/16/22 19:15 Temperature 36.3 C L Heart Rate 53 L Respiratory 18 Rate Blood Pressure 130/84 H O2 Saturation 99 Oxygen O2 Source Room air PD MEDICAL DECISION MAKING - ED course ED course: 37-year-old woman with localized reaction to bee sting albeit it is on the tongue. That it said it is not severe at this point and it has been long enough that I do not expect it to significantly worsen and she is started on a few days worth of steroids. Departure - Departure Disposition: 01 Home, Self Care Clinical Impression: Local reaction to bee sting Condition: Good Record reviewed to determine appropriate education?: Yes Instructions: ED Bite Sting Insect Local Allergic React Prescriptions: predniSONE [Deltasone] 60 mg PO DAILY 3 Days #9 tablet Comments: Return if you worsen, you can continue to use cool topical therapies such as popsicles and ice for the swelling. It is also not unreasonable to use [id number] Zyrtec per package instructions.
[2022-08-16 20:27] VITALS: BP 122/81
== END 2022-08-16 20:25 | disposition home or self-care (01) ==
LOC: ED 19:07
DX: T63.441A Toxic effect of venom of bees, accidental (unintentional), initial encounter (principal); Y92.89 Other specified places as the place of occurrence of the external cause; K14.8 Other diseases of tongue
CPT/HCPCS: 99282; A9270; J7512

== ENCOUNTER 2022-09-18 08:00 | Outpatient (CLI) | payer SELFPAY ==
[2022-09-18 18:13] LABS: BASOPHILS % (AUTO) 0.6 %; HCT - HEMATOCRIT 46.9 % (37.0-47.0); HGB - HEMOGLOBIN 15.4 g/dL (12.0-16.0); LYMPHOCYTES # (AUTO) 1.1 10^3/uL (1.5-3.5); LYMPHOCYTES % (AUTO) 36.5 %; MEAN CORPUSCULAR HEMOGLOBIN 28.9 pg (27.0-31.0); MEAN CORPUSCULAR HGB CONC 32.8 g/dL (32.0-36.0); MEAN PLATELET VOLUME 12.1 fL (7.9-10.8); MONOCYTES # (AUTO) 0.2 10^3/uL (0.0-1.0); MONOCYTES % (AUTO) 7.1 %; NEUTROPHILS # (AUTO) 1.7 10^3/uL (1.5-6.6); NEUTROPHILS % (AUTO) 54.2 %; PLT - PLATELET COUNT 194 10^3/uL (130-450); RED BLOOD COUNT 5.33 10^6/uL (4.20-5.40); RED CELL DISTRIBUTION WIDTH 12.6 % (12.0-15.0); WHITE BLOOD COUNT 3.1 x10^3/uL (4.8-10.8)
[2022-09-18 18:28] LABS: ALBUMIN/GLOBULIN RATIO 1.3 (1.0-2.2); BILIRUBIN,TOTAL 0.4 mg/dL (0.2-1.0); CALCIUM 9.4 mg/dL (8.5-10.3); CREATININE 0.6 mg/dL (0.4-1.0); POTASSIUM 4.1 mmol/L (3.5-5.0)
== END 2022-09-18 23:59 | disposition home or self-care (01) ==
LOC: LAB.N 08:00
PROVIDERS: ATTEND Family Medicine
DX: D64.9 Anemia, unspecified (principal); E61.1 Iron deficiency
CPT/HCPCS: 36415; 80053; 82728; 83540; 84466; 85025

== ENCOUNTER 2022-12-23 18:02 | Outpatient (CLI) | payer SELFPAY ==
[2022-12-23 20:54] LABS: BASOPHILS % (AUTO) 0.8 %; EOSINOPHILS # (AUTO) 0.1 10^3/uL (0.0-0.7); EOSINOPHILS % (AUTO) 2.1 %; HCT - HEMATOCRIT 46.6 % (37.0-47.0); LYMPHOCYTES # (AUTO) 1.4 10^3/uL (1.5-3.5); LYMPHOCYTES % (AUTO) 36.8 %; MEAN CORPUSCULAR HEMOGLOBIN 28.3 pg (27.0-31.0); MEAN CORPUSCULAR HGB CONC 32.2 g/dL (32.0-36.0); MEAN CORPUSCULAR VOLUME 87.9 fL (81.0-99.0); MEAN PLATELET VOLUME 11.6 fL (7.9-10.8); MONOCYTES # (AUTO) 0.2 10^3/uL (0.0-1.0); MONOCYTES % (AUTO) 6.4 %; NEUTROPHILS % (AUTO) 53.6 %; PLT - PLATELET COUNT 208 10^3/uL (130-450); RED CELL DISTRIBUTION WIDTH 12.7 % (12.0-15.0); WHITE BLOOD COUNT 3.8 x10^3/uL (4.8-10.8)
[2022-12-23 21:07] LABS: ALBUMIN 4.4 g/dL (3.2-5.5); ALBUMIN/GLOBULIN RATIO 1.4 (1.0-2.2); BILIRUBIN,TOTAL 0.9 mg/dL (0.2-1.0); CALCIUM 9.5 mg/dL (8.5-10.3); CREATININE 0.6 mg/dL (0.4-1.0); POTASSIUM 4.2 mmol/L (3.5-5.0); TOTAL PROTEIN 7.6 g/dL (6.7-8.2)
== END 2022-12-23 23:59 | disposition home or self-care (01) ==
LOC: LAB.N 18:02
PROVIDERS: ATTEND Physician Assistant
DX: D64.9 Anemia, unspecified (principal); R53.1 Weakness
CPT/HCPCS: 36415; 80053; 85025

== ENCOUNTER 2023-01-17 11:57 | Emergency (ER) | payer SELFPAY ==
[2023-01-17] MEDS ORDERED: oxyCODONE 5 MG TABLET PO STA (12:28)
[2023-01-17 12:32] LABS: BILIRUBIN,URINE NEGATIVE (NEGATIVE); GLUCOSE, URINE (UA) NEGATIVE (NEGATIVE); KETONES,URINE (UA) NEGATIVE (NEGATIVE); LEUKOCYTE ESTERASE, URINE NEGATIVE (NEGATIVE); NITRITE,URINE NEGATIVE (NEGATIVE); OCCULT BLOOD,URINE NEGATIVE (NEGATIVE); PROTEIN,URINE NEGATIVE (NEGATIVE); UROBILINOGEN,URINE 0.2 (NORMAL) E.U./dL (NORMAL)
[2023-01-17 12:39] LABS: CLARITY,URINE CLEAR (CLEAR); HCG UR QUAL NEGATIVE
--- NOTE | 2023-01-17 12:46 | ED Physician Documentation ---
History of Present Illness - Stated complaint Stated Complaint: DIZZINESS - Chief complaint Chief Complaint: General - History obtained from History obtained from: Patient - History of Present Illness Timing: Today Pain level max: 6 Pain level now: 5 - Additonal information Additional information: Patient is a 37-year-old female who presents to the emergency department with multiple complaints. She states that over the past several days she has had several episodes of intermittent weakness. She states that during 1 episode 2 days ago she twisted both of her ankles. Left is hurting more than the right. She has been able to walk on them. She states that she had a short episode of chest pain a few days ago, lasted for a few seconds. No fever. No chills. No cough. No congestion. No vomiting. No diarrhea. She states she usually receives blood transfusions and iron infusions, but missed her most recent appointment. She is concerned that her blood counts could be decreased again and that she may require a blood transfusion. Currently the patient is asymptomatic other than pain to the bilateral ankles. Review of Systems Constitutional: denies: Fever, Chills Throat: denies: Sore throat Cardiac: reports: Chest pain / pressure (She states 1 to 2 seconds of chest pain earlier in the week. None currently. 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: Dilation and currettage - Present Medications Home Medications: Ambulatory Orders Medication Instructions Recorded Confirmed Ferrous Gluconate [Iron] 240 mg PO BID 12/31/19 01/17/23 l-Norgest/E.estradiol-E.estrad 1 each PO DAILY 04/08/20 01/17/23 [Loseasonique Tablet] Ascorbic Acid [Vitamin C] 500 mg ORAL DAILY 09/01/20 01/17/23 Folic Acid 1 mg PO DAILY 09/01/20 01/17/23 Mecobalamin [B12 Active] 500 mcg PO DAILY 09/01/20 01/17/23 No122/Iron/Folic Acid 1 each PO DAILY 09/01/20 01/17/23 [ Multi Tablet] Famotidine [Pepcid] 20 mg PO ONCE 11/05/20 01/17/23 Oxycodone HCl/Acetaminophen 1 - 2 each PO Q6H PRN #14 tablet 04/12/21 01/17/23 [Percocet 5-325 mg Tablet] predniSONE [Deltasone] 60 mg PO DAILY 3 Days #9 tablet 08/16/22 01/17/23 oxyCODONE [Roxicodone] 5 mg PO Q6H PRN #14 tablet MDD 6 01/17/23 - Allergies Allergies/Adverse Reactions: Allergies Allergy/AdvReac Type Severity Reaction Status Date / Time hydrocodone Allergy Rash Verified 01/17/23 12:10 shrimp Allergy itching, Verified 01/17/23 12:10 diarrhea, headche, GI codeine [Codeine] AdvReac Intermediate itching/abd Verified 01/17/23 12:10 pain fentanyl AdvReac Diaphoresis Verified 01/17/23 12:10 - Social History Does the pt smoke?: No Smoking Status: Never smoker Does the pt drink ETOH?: No Does the pt have substance abuse?: No - Immunizations Immunizations are current?: Yes Immunizations: No immun - POLST Patient has POLST: No POLST Status: Full Code PD ED PE NORMAL - Vitals Vital signs reviewed: Yes - General General: Alert and oriented X 3, No acute distress - HEENT HEENT: Atraumatic, PERRL, Moist mucous membranes - Neck Neck: Supple, no meningeal sign, No bony TTP - Cardiac Cardiac: RRR, No murmur, Strong equal pulses - Respiratory Respiratory: No respiratory distress, Clear bilaterally - Abdomen Abdomen: Soft, Non tender, Non distended - Back Back: No spinal TTP - Derm Derm: Warm and dry - Extremities Extremities: Other (Mild diffuse tenderness palpation about the bilateral ankles. No swelling. Neurovascular intact. No tenderness over the bilateral feet, tibia, fibula or knees.) - Neuro Neuro: Alert and oriented X 3, threading machine feeder automatic 2-12 intact, No motor deficit, No sensory deficit, Normal speech Eye Opening: Spontaneous Motor: Obeys Commands Verbal: Oriented GCS Score: 15 - Psych Psych: Normal mood, Normal affect Results - Vitals Vitals: Vital Signs - 24 hr 01/17/23 01/17/23 12:02 12:47 Temperature 36.3 C L Heart Rate 57 L 58 L Respiratory 16 18 Rate Blood Pressure 131/84 H 118/79 O2 Saturation 97 99 Oxygen O2 Source Room air - EKG (time done) 1216 Rate: Rate (enter#) (55) Rhythm: NSR Norman: Normal Intervals: Normal SC QRS: Normal Ischemia: Non specific changes - Labs Labs: Laboratory Tests 01/17/23 01/17/23 01/17/23 12:22 12:59 12:59 WBC 3.4 L RBC 5.20 Hgb 14.8 Hct 45.1 MCV 86.7 MCH 28.5 MCHC 32.8 RDW 13.0 Plt Count 199 MPV 11.0 H Neut # (Auto) 1.9 Lymph # (Auto) 1.1 L [place] # (Auto) 0.2 Eos # (Auto) 0.1 Baso # (Auto) 0.0 Absolute Nucleated RBC 0.00 Nucleated RBC % 0.0 Sodium 137 Potassium 4.0 Chloride 104 Carbon Dioxide 25 Anion Gap 8.0 BUN 17 Creatinine 0.6 Estimated GFR (MDRD) 114 Glucose 102 H Calcium 9.8 Total Bilirubin 0.6 AST 13 ALT 16 Alkaline Phosphatase 72 Troponin I High Sens Total Protein 7.2 Albumin 4.1 Globulin 3.1 Albumin/Globulin Ratio 1.3 Lipase 34 Urine Color YELLOW Urine Clarity CLEAR Urine pH 7.0 Ur Specific [place] 1.020 Urine Protein NEGATIVE Urine Glucose (UA) NEGATIVE Urine Ketones NEGATIVE Urine Occult Blood NEGATIVE Urine Nitrite NEGATIVE Urine Bilirubin NEGATIVE Urine Urobilinogen 0.2 (NORMAL) Ur Leukocyte Esterase NEGATIVE Ur Microscopic Review NOT INDICATED Urine Culture Comments NOT INDICATED Urine HCG, Qual NEGATIVE 01/17/23 12:59 WBC RBC Hgb Hct MCV MCH MCHC RDW Plt Count MPV Neut # (Auto) Lymph # (Auto) Latimer # (Auto) Eos # (Auto) Baso # (Auto) Absolute Nucleated RBC Nucleated RBC % Sodium Potassium Chloride Carbon Dioxide Anion Gap BUN Creatinine Estimated GFR (MDRD) Glucose Calcium Total Bilirubin AST ALT Alkaline Phosphatase Troponin I High Sens 2.7 Total Protein Albumin Globulin Albumin/Globulin Ratio Lipase Urine Color Urine Clarity Urine pH Ur Specific [place] Urine Protein Urine Glucose (UA) Urine Ketones Urine Occult Blood Urine Nitrite Urine Bilirubin Urine Urobilinogen Ur Leukocyte Esterase Ur Microscopic Review Urine Culture Comments Urine HCG, Qual - Rads (name of study) cxr Radiology: Final report received, See rad report B ankle xray Radiology: Final report received, See rad report PD Medical Decision Making - ED course Complexity details: reviewed results, re-evaluated patient, considered differential (No ST elevation NV, no aortic dissection, no PE, no tension pneumothorax, no aortic aneurysm), d/w patient ED course: No acute findings on CBC. Normal hemoglobin and hematocrit. No significant findings on your abdominal panel. High-sensitivity troponin is negative. Urinalysis is negative. No acute findings on chest x-ray. Bilateral ankle x- rays are negative. EKG does not show any acute abnormalities. Patient does state that she has only been sleeping 2 to 3 hours at night while taking care of her spouse with Guthrie's disease. This could be contributing to her fatigue and weakness. Recommend that she follow-up with her doctor for further care. Also recommend that she talk to her 's provider about palliative care/hospice. We will prescribe pain medication for home for a few days for the ankle sprains. Patient declines crutches. Patient counseled regarding signs and symptoms for which I believe and urgent re-evaluation would be necessary. Patient with good understanding of and agreement to plan and is comfortable going home at this time This document was made in part using voice recognition software. While efforts are made to proofread this document, sound alike and grammatical errors may occur. Departure - Departure Disposition: 01 Home, Self Care Clinical Impression: Weakness Ankle sprain Qualifiers: Encounter type: initial encounter Involved ligament of ankle: unspecified ligament Laterality: unspecified laterality Qualified Code(s): S93.409A - Sprain of unspecified ligament of unspecified ankle, initial encounter Condition: Good Instructions: ED Weakness UKO, ED Sprain Ankle Follow-Up: Your,doctor in 1 week [Other] Prescriptions: oxyCODONE [Roxicodone] 5 mg PO Q6H PRN #14 tablet MDD 6 PRN Reason: pain Comments: Please follow-up with your doctor for further care. Please return if you worsen. Your testing today does not show any significant abnormalities. I would recommend that you talk to your 's doctor about palliative care. I have listed the website for [facility] below. You were also given resources regarding hospice and palliative care. This will help with caregivers, keeping him at home and allowing you respite/rest. [email or web address] I am prescribing a short course of narcotic pain medication for you. These are potentially dangerous and addictive medications that should be used carefully. These medications may constipate you. Take an [id number] stool softener (docusate) twice daily with plenty of water while taking these medications. If you go 24 hours without a bowel movement, take [id number] miralax, per package instructions. Do not drink or drive while taking these medications. If you received narcotic or sedating medications while in the emergency de partment, do not drive for 24 hours. Store this medication in a safe, secure place and out of reach of children. It is a violation of federal law to give or sell this medication to another person or to use in a manner other than prescribed. The ED will not refill narcotic prescriptions, including prescriptions lost or stolen. To dispose of unwanted medications: 1. [facility] at [address] in [place] has a medication drop box. They accept prescription medications (in pill form) Wednesday through Wednesday 9:00 a.m. to 5:00 p.m. 2. The [facility] [employer] accepts prescription medications (in pill form only) for disposal year round. Call for more information. 3. Contact the [facility] for the next [facility] sponsored prescription drug collection event. , [phone], or [phone]; Discharge Date/Time: 01/17/23 14:09
[2023-01-17 12:48] VITALS: BP 118/79
[2023-01-17 13:08] LABS: BASOPHILS % (AUTO) 0.6 %; EOSINOPHILS # (AUTO) 0.1 10^3/uL (0.0-0.7); EOSINOPHILS % (AUTO) 2.4 %; HCT - HEMATOCRIT 45.1 % (37.0-47.0); HGB - HEMOGLOBIN 14.8 g/dL (12.0-16.0); LYMPHOCYTES # (AUTO) 1.1 10^3/uL (1.5-3.5); LYMPHOCYTES % (AUTO) 33.1 %; MEAN CORPUSCULAR HEMOGLOBIN 28.5 pg (27.0-31.0); MEAN CORPUSCULAR HGB CONC 32.8 g/dL (32.0-36.0); MEAN CORPUSCULAR VOLUME 86.7 fL (81.0-99.0); MONOCYTES # (AUTO) 0.2 10^3/uL (0.0-1.0); MONOCYTES % (AUTO) 6.8 %; NEUTROPHILS # (AUTO) 1.9 10^3/uL (1.5-6.6); NEUTROPHILS % (AUTO) 56.8 %; PLT - PLATELET COUNT 199 10^3/uL (130-450); WHITE BLOOD COUNT 3.4 x10^3/uL (4.8-10.8)
--- NOTE | 2023-01-17 13:14 | XRAY Report ---
PROCEDURE: Ankle 3 View BILAT INDICATIONS: fall, ankle pain TECHNIQUE: 3 views of the bilateral ankles were acquired. COMPARISON: None FINDINGS: Bones: No fractures or dislocations. Ankle mortise is normally aligned. No suspicious bony lesions . Soft tissues: No tibiotalar joint effusion. Achilles tendon appears normal. IMPRESSION: No evidence acute bony abnormality of the bilateral ankles. If clinical suspicion and/or symptoms persist, further assessment with repeat plain films or advanced imaging (e.g., CT, MRI, or bone scan) may be helpful for further assessment. Reviewed by: Yash Hughes MD on 01/17/2023 1:12 PM PST Approved by: Yash Hughes MD on 01/17/2023 1:12 PM PST Station ID: [id number]
[2023-01-17 13:26] LABS: ALBUMIN 4.1 g/dL (3.2-5.5); ALBUMIN/GLOBULIN RATIO 1.3 (1.0-2.2); BILIRUBIN,TOTAL 0.6 mg/dL (0.2-1.0); CALCIUM 9.8 mg/dL (8.5-10.3); CREATININE 0.6 mg/dL (0.4-1.0); TOTAL PROTEIN 7.2 g/dL (6.7-8.2)
--- NOTE | 2023-01-17 13:41 | XRAY Report ---
PROCEDURE: Chest 1 View X-Ray INDICATIONS: Chest Pain TECHNIQUE: One view of the chest was acquired. COMPARISON: None. FINDINGS: Surgical changes and devices: None. Lungs and pleura: No pleural effusions or pneumothorax. Lungs are clear. Mediastinum: Mediastinal contours appear normal. Heart size is normal. Bones and chest wall: No suspicious bony lesions. Overlying soft tissues appear unremarkable. IMPRESSION: No acute cardiopulmonary findings Reviewed by: Damion Dickinson MD on 01/17/2023 12:40 PM [facility] Approved by: Damion Dickinson MD on 01/17/2023 12:40 PM [facility] Station ID: [id number]
== END 2023-01-17 14:09 | disposition home or self-care (01) ==
LOC: ED 11:57
DX: R53.1 Weakness (principal); S93.402A Sprain of unspecified ligament of left ankle, initial encounter; S93.401A Sprain of unspecified ligament of right ankle, initial encounter; X50.1XXA Overexertion from prolonged static or awkward postures, initial encounter
CPT/HCPCS: 36415; 71045; 73610; 80053; 81003; 81025; 83690; 84484; 85025; 93005; 99284; A9270; 81001; 87086

== ENCOUNTER 2023-04-22 10:06 | Outpatient (CLI) | payer SELFPAY ==
[2023-04-22 10:29] LABS: EOSINOPHILS # (AUTO) 0.3 10^3/uL (0.0-0.7); EOSINOPHILS % (AUTO) 6.5 %; HCT - HEMATOCRIT 44.9 % (37.0-47.0); HGB - HEMOGLOBIN 14.7 g/dL (12.0-16.0); LYMPHOCYTES # (AUTO) 1.6 10^3/uL (1.5-3.5); MEAN CORPUSCULAR HEMOGLOBIN 28.8 pg (27.0-31.0); MEAN CORPUSCULAR HGB CONC 32.7 g/dL (32.0-36.0); MEAN PLATELET VOLUME 11.3 fL (7.9-10.8); MONOCYTES # (AUTO) 0.3 10^3/uL (0.0-1.0); MONOCYTES % (AUTO) 6.5 %; NEUTROPHILS # (AUTO) 1.9 10^3/uL (1.5-6.6); NEUTROPHILS % (AUTO) 46.8 %; PLT - PLATELET COUNT 213 10^3/uL (130-450); RED CELL DISTRIBUTION WIDTH 12.2 % (12.0-15.0); WHITE BLOOD COUNT 4.2 x10^3/uL (4.8-10.8)
[2023-04-22 10:46] LABS: ALBUMIN/GLOBULIN RATIO 1.3 (1.0-2.2); BILIRUBIN,TOTAL 0.6 mg/dL (0.2-1.0); CALCIUM 9.3 mg/dL (8.5-10.3); CREATININE 0.5 mg/dL (0.4-1.0)
--- NOTE | 2023-04-22 20:43 | XRAY Report ---
PROCEDURE: Foot 2 View LT INDICATIONS: FOOT PAIN TECHNIQUE: 2 views of the foot were acquired. COMPARISON: Bilateral ankle radiograph dated 01/17/2023 in left ankle radiograph dated 08/04/2021. FINDINGS: Bones: No fractures or dislocations. No suspicious bony lesions. Soft tissues: No suspicious soft tissue calcifications or masses. IMPRESSION: No left foot fracture or dislocation. No radiographic evidence of metatarsal stress fractures. Reviewed by: Aldo Rosas MD on 04/22/2023 8:41 PM PDT Approved by: Aldo Rosas MD on 04/22/2023 8:41 PM PDT Station ID: [id number]
== END 2023-04-22 10:07 | disposition home or self-care (01) ==
LOC: DI 10:06
PROVIDERS: ATTEND Nurse Practitioner
DX: M79.672 Pain in left foot (principal); R53.1 Weakness
CPT/HCPCS: 36415; 80053; 85025

== ENCOUNTER 2023-07-07 15:15 | Outpatient (CLI) | payer SELFPAY ==
[2023-07-07 20:28] LABS: BASOPHILS % (AUTO) 0.4 %; EOSINOPHILS # (AUTO) 0.1 10^3/uL (0.0-0.7); EOSINOPHILS % (AUTO) 1.6 %; HCT - HEMATOCRIT 42.5 % (37.0-47.0); HGB - HEMOGLOBIN 13.7 g/dL (12.0-16.0); LYMPHOCYTES # (AUTO) 1.3 10^3/uL (1.5-3.5); LYMPHOCYTES % (AUTO) 23.8 %; MEAN CORPUSCULAR HEMOGLOBIN 28.5 pg (27.0-31.0); MEAN CORPUSCULAR HGB CONC 32.2 g/dL (32.0-36.0); MEAN CORPUSCULAR VOLUME 88.5 fL (81.0-99.0); MEAN PLATELET VOLUME 11.1 fL (7.9-10.8); MONOCYTES # (AUTO) 0.3 10^3/uL (0.0-1.0); MONOCYTES % (AUTO) 5.9 %; NEUTROPHILS # (AUTO) 3.7 10^3/uL (1.5-6.6); NEUTROPHILS % (AUTO) 67.8 %; PLT - PLATELET COUNT 266 10^3/uL (130-450); RED CELL DISTRIBUTION WIDTH 13.2 % (12.0-15.0); WHITE BLOOD COUNT 5.5 x10^3/uL (4.8-10.8)
[2023-07-07 20:36] LABS: CALCIUM 9.2 mg/dL (8.5-10.3); CREATININE 0.6 mg/dL (0.4-1.0); POTASSIUM 4.3 mmol/L (3.5-5.0)
== END 2023-07-07 15:30 | disposition home or self-care (01) ==
LOC: LAB.N 15:15
PROVIDERS: ATTEND Emergency Medicine
DX: J20.9 Acute bronchitis, unspecified (principal); R53.83 Other fatigue
CPT/HCPCS: 36415; 80048; 85025

== ENCOUNTER 2023-09-06 16:30 | Outpatient (CLI) | payer SELFPAY ==
[2023-09-06 21:12] LABS: BASOPHILS % (AUTO) 0.9 %; EOSINOPHILS # (AUTO) 0.2 10^3/uL (0.0-0.7); EOSINOPHILS % (AUTO) 5.3 %; HGB - HEMOGLOBIN 13.8 g/dL (12.0-16.0); LYMPHOCYTES # (AUTO) 1.1 10^3/uL (1.5-3.5); LYMPHOCYTES % (AUTO) 33.3 %; MEAN CORPUSCULAR HEMOGLOBIN 28.8 pg (27.0-31.0); MEAN CORPUSCULAR HGB CONC 32.9 g/dL (32.0-36.0); MEAN CORPUSCULAR VOLUME 87.5 fL (81.0-99.0); MEAN PLATELET VOLUME 11.8 fL (7.9-10.8); MONOCYTES # (AUTO) 0.3 10^3/uL (0.0-1.0); MONOCYTES % (AUTO) 8.6 %; NEUTROPHILS # (AUTO) 1.8 10^3/uL (1.5-6.6); NEUTROPHILS % (AUTO) 51.6 %; PLT - PLATELET COUNT 173 10^3/uL (130-450); RED CELL DISTRIBUTION WIDTH 12.7 % (12.0-15.0); WHITE BLOOD COUNT 3.4 x10^3/uL (4.8-10.8)
[2023-09-06 21:28] LABS: ALBUMIN 4.4 g/dL (3.2-5.5); ALBUMIN/GLOBULIN RATIO 1.8 (1.0-2.2); BILIRUBIN,TOTAL 0.3 mg/dL (0.2-1.0); CALCIUM 9.9 mg/dL (8.5-10.3); CREATININE 0.5 mg/dL (0.6-1.3); POTASSIUM 3.7 mmol/L (3.5-4.5); TOTAL PROTEIN 6.9 g/dL (6.4-8.9)
[2023-09-06 21:53] LABS: THYROID STIMULATING HORMONE 2.03 uIU/mL (0.34-5.60)
[2023-09-06 22:00] LABS: FERRITIN 44.8 ng/mL (11.0-306.8)
== END 2023-09-06 16:45 | disposition home or self-care (01) ==
LOC: LAB.N 16:30
PROVIDERS: ATTEND Family Medicine
DX: D64.9 Anemia, unspecified (principal); R53.83 Other fatigue; M79.10 Myalgia, unspecified site
CPT/HCPCS: 36415; 80053; 82550; 82607; 82728; 83540; 84443; 84466; 85025; 85651

== ENCOUNTER 2024-04-04 08:00 | Outpatient (CLI) | payer SELFPAY ==
[2024-04-04 17:50] LABS: BASOPHILS % (AUTO) 0.8 %; EOSINOPHILS # (AUTO) 0.1 10^3/uL (0.0-0.7); EOSINOPHILS % (AUTO) 1.9 %; HCT - HEMATOCRIT 43.2 % (37.0-47.0); HGB - HEMOGLOBIN 14.4 g/dL (12.0-16.0); LYMPHOCYTES # (AUTO) 1.7 10^3/uL (1.5-3.5); LYMPHOCYTES % (AUTO) 47.6 %; MEAN CORPUSCULAR HEMOGLOBIN 28.9 pg (27.0-31.0); MEAN CORPUSCULAR HGB CONC 33.3 g/dL (32.0-36.0); MEAN CORPUSCULAR VOLUME 86.7 fL (81.0-99.0); MEAN PLATELET VOLUME 11.5 fL (7.9-10.8); MONOCYTES # (AUTO) 0.2 10^3/uL (0.0-1.0); MONOCYTES % (AUTO) 6.7 %; NEUTROPHILS # (AUTO) 1.5 10^3/uL (1.5-6.6); NEUTROPHILS % (AUTO) 42.7 %; PLT - PLATELET COUNT 195 10^3/uL (130-450); RED BLOOD COUNT 4.98 10^6/uL (4.20-5.40); RED CELL DISTRIBUTION WIDTH 13.2 % (12.0-15.0); WHITE BLOOD COUNT 3.6 x10^3/uL (4.8-10.8)
== END 2024-04-04 23:59 | disposition home or self-care (01) ==
LOC: LAB.N 08:00
PROVIDERS: ATTEND Physician Assistant Medical
DX: D64.9 Anemia, unspecified (principal)
CPT/HCPCS: 36415; 82728; 83540; 84466; 85025